=== PATIENT | male | born 1950 | race Caucasian/White ===

== ENCOUNTER 2017-04-19 22:04 | Emergency (ER) | payer OTHER ==
[2017-04-19 22:25] VITALS: BP 111/57; PULSE 80; RESP 20; TEMP 98.8
--- NOTE | 2017-04-20 00:19 | ED ---
Recheck HPI - General Source: patient, RN notes reviewed Mode of arrival: ambulatory Limitations: no limitations <Tammy Hugo - Last Filed: 04/20/17 05:15> <Bob Romero - Last Filed: 04/20/17 06:53> - General Chief Complaint: Recheck/Abnormal Lab/Rx Stated Complaint: Peg Tube fell out Time Seen by Provider: 04/19/17 23:31 - History of Present Illness Initial Comments: patient is a 66-year-old male since emergency room for evaluation. Patient states he has a feeding tube placed and it fell out today. Patient states he was using a power electronics research engineer the other day and it backfired hitting his PEG tube and it became loose and fell out today. Patient denies any significant pain. Patient just states he needs his PEG tube replaced. (Tammy Hugo) - Related Data Home Medications Medication Instructions Recorded Confirmed Aspirin [Adult Low Dose Aspirin EC] 81 mg PO DAILY 10/28/16 04/19/17 Cholecalciferol [Vitamin D3] 1,000 unit PO DAILY 10/28/16 04/19/17 Docusate [Colace] 100 mg PO DAILY 10/28/16 04/19/17 Lasix (Unknown Dose) 1 tab PO DIRECTED 10/28/16 04/19/17 Lisinopril [Prinivil] 5 mg PO DAILY 10/28/16 04/19/17 Pantoprazole Sodium [Protonix] 40 mg PO BID 10/28/16 04/19/17 Unknown Blood Pressure Medication 12.5 mg PO BID 10/28/16 04/19/17 Unknown Cholesterol Medication 80 mg PO HS 10/28/16 04/19/17 Allergies Allergy/AdvReac Type Severity Reaction Status Date / Time No Known Allergies Allergy Verified 04/19/17 22:25 Review of Systems ROS Other: All systems not noted in ROS Statement are negative. <Tammy Hugo - Last Filed: 04/20/17 05:15> ROS Other: All systems not noted in ROS Statement are negative. <Bob Romero - Last Filed: 04/20/17 06:53> ROS Statement: Those systems with pertinent positive or pertinent negative responses have been documented in the HPI. Past Medical History Past Medical History: Cancer, Heart Failure History of Any Multi-Drug Resistant Organisms: None Reported Additional Past Surgical History / Comment(s): Tracheostomy, PEG tube Past Psychological History: No Psychological Hx Reported Smoking Status: Former smoker Past Alcohol Use History: None Reported Past Drug Use History: None Reported <Tammy Hugo - Last Filed: 04/20/17 05:15> General Exam Limitations: no limitations General appearance: alert, in no apparent distress Head exam: Present: atraumatic, normocephalic, normal inspection Eye exam: Present: normal appearance ENT exam: Present: normal exam Neck exam: Present: normal inspection Respiratory exam: Present: normal lung sounds bilaterally. Absent: respiratory distress Cardiovascular Exam: Present: regular rate, normal rhythm, normal heart sounds GI/Abdominal exam: Present: other (open orrifice in LUQ where feeding tube is usually placed. No swelling or erythema around the site.) Extremities exam: Present: normal inspection Back exam: Present: normal inspection Neurological exam: Present: alert, oriented X3, CN II-XII intact, normal gait Psychiatric exam: Present: normal affect, normal mood Skin exam: Present: warm, dry, intact, normal color. Absent: rash <Tammy Hugo - Last Filed: 04/20/17 05:15> <Bob Romero - Last Filed: 04/20/17 06:53> - General Exam Comments Initial Comments: Laying in exam room, no acute distress. (Tammy Hugo) Procedures - Feeding Tube Replacement Reason for Replacement: fell out Initial Tube Inserted: greater than 2 weeks Type of Tube: gastrostomy Use of Tube: medications and feeding Insertion Site Prior to Procedure: clean Tube Used for Reinsertion: other [place] Tube Size (F): 16 Balloon Size (mls): 3 Verification of Placement: KUB Tube Secured by: tape/dressing Patient Tolerated Procedure: well, no complications Complications: unable to insert (Unable to insert first 2 times. Third attempt was successful.) <Tammy Hugo - Last Filed: 04/20/17 05:15> Medical Decision Making - Radiology Data Radiology results: report reviewed, image reviewed <Tammy Hugo - Last Filed: 04/20/17 05:15> <Bob Romero - Last Filed: 04/20/17 06:53> - Medical Decision Making patient is a 66-year-old male presents emergency room for evaluation of PEG tube replacement. Patient's PEG tube was replaced. Successful placement confirmed by KUB. Return parameters discussed. Case discussed Dr. Romero. ( Tammy Hugo) I saw this patient in conjunction with the physician customer support assistant. I performed independent history and physical exam. Agree with case management. I personally replaced the patient's feeding tube, without any complication. ( Bob Romero) Disposition Time of Disposition: 01:19 <Tammy Hugo - Last Filed: 04/20/17 05:15> <Bob Romero - Last Filed: 04/20/17 06:53> Clinical Impression: Encounter for feeding tube placement Disposition: HOME SELF-CARE Condition: Good Instructions: How to Use and Care for Your PEG Tube (ED) Additional Instructions: Please follow up with primary care provider in 1-2 days. If any new symptom arises or symptoms worsen, return to ER as soon as possible. Referrals: Eyad hCa DO [Primary Care Provider] - 1-2 days
--- NOTE | 2017-04-20 01:30 | XR ---
EXAM: XR Abdomen, 1 View CLINICAL HISTORY: Reason: pain TECHNIQUE: Frontal supine view of the abdomen/pelvis. Oral contrast was instilled in the percutaneous gastrostomy tube. COMPARISON: 10/28/16 FINDINGS: Gastrointestinal tract: Moderate fecal load. No dilation. Bones/joints: Unremarkable. Tubes, lines and devices: Percutaneous gastrostomy tube seen with the tip in the gastric antrum. Contrast is seen within the proximal duodenum. No evidence of contrast extravasation. IMPRESSION: Percutaneous gastrostomy tube seen with the tip in the gastric antrum. Contrast is seen within the proximal duodenum. No evidence of contrast extravasation.
== END 2017-04-20 01:26 | disposition home or self-care (01) ==
LOC: EC 22:04
DX: Z43.1 Encounter for attention to gastrostomy (principal); Z87.891 Personal history of nicotine dependence; Z79.82 Long term (current) use of aspirin; Z79.899 Other long term (current) drug therapy
CPT/HCPCS: 99283; 43760; 74000; Q9967

== ENCOUNTER 2018-12-27 12:15 | Inpatient (IN) | payer OTHER, MEDICARE ==
[2018-12-27] MEDS ORDERED: SODIUM CHLORIDE 0.9% 500 ML 500 ML IV STA (12:34)
[2018-12-27] MEDS ORDERED: SODIUM CHLORIDE 0.9% 1,000 ML IV STA ×2 (12:34)
--- NOTE | 2018-12-27 12:35 | ED ---
Recheck HPI - General Chief Complaint: Recheck/Abnormal Lab/Rx Stated Complaint: high blood sugar Time Seen by Provider: 12/27/18 12:33 Source: patient, family, RN notes reviewed, old records reviewed Mode of arrival: wheelchair Limitations: no limitations - History of Present Illness Initial Comments: This is a 68-year-old male sent ER for evaluation. Patient's brought in for abnormal lab values. Patient has severe hyperglycemia and outpatient lab tests. Patient sent in the ER for treatment and cause of hypoglycemia. Patient denies any increase or change in diet. Patient has no history of diabetes MD Complaint: abnormal lab -: unknown Returns Today for: Called Because of Abnormal Lab/Test Context: called for abnormal lab result Associated Symptoms: none, abdominal pain - Related Data Home Medications Medication Instructions Recorded Confirmed Aspirin [Adult Low Dose Aspirin EC] 81 mg PO DAILY 10/28/16 12/27/18 Cholecalciferol [Vitamin D3] 2,000 unit PO DAILY 10/28/16 12/27/18 Docusate [Colace] 100 mg PO DAILY 10/28/16 12/27/18 Pantoprazole Sodium [Protonix] 40 mg PO BID 10/28/16 12/27/18 Acetaminophen [Tylenol Extra 500 mg PO TID PRN 12/27/18 12/27/18 Strength] Albuterol Inhaler [Ventolin Hfa 2 puff INHALATION RT-DAILY PRN 12/27/18 12/27/18 Inhaler] Albuterol Nebulized [Ventolin 1.25 mg INHALATION RT-Q4H PRN 12/27/18 12/27/18 Nebulized] Amitriptyline HCl [Elavil] 50 mg PO TID 12/27/18 12/27/18 Ascorbic Acid [Vitamin C] 500 mg PO DAILY 12/27/18 12/27/18 Atorvastatin [Lipitor] 80 mg PO DAILY 12/27/18 12/27/18 Brimonidine Tartrate [Alphagan P 1 drops BOTH EYES DAILY 12/27/18 12/27/18 0.1% Ophth Soln] Capsaicin Cream [Trixaicin Cream] 1 applic TOPICAL QID PRN 12/27/18 12/27/18 Clopidogrel [Plavix] 75 mg PO DAILY 12/27/18 12/27/18 DULoxetine HCL [Cymbalta] 30 mg PO DAILY 12/27/18 12/27/18 Furosemide [Lasix] 20 mg PO BID 12/27/18 12/27/18 Levothyroxine Sodium 112 mcg PO DAILY 12/27/18 12/27/18 Lidocaine 5% Oint [Xylocaine 5% 1 applic TOPICAL BID 12/27/18 12/27/18 Oint] Olodaterol HCl [Striverdi Respimat] 1 spray INHALATION RT-DAILY 12/27/18 Ondansetron [Zofran] 4 mg PO Q8HR PRN 12/27/18 12/27/18 Pregabalin [Lyrica] 50 mg PO TID 12/27/18 12/27/18 Ranitidine HCl 300 mg PO BID 12/27/18 12/27/18 Sennosides [Senna] 8.6 mg PO BID PRN 12/27/18 12/27/18 Allergies Allergy/AdvReac Type Severity Reaction Status Date / Time etodolac Allergy Unknown Verified 12/27/18 13:02 omeprazole Allergy Unknown Verified 12/27/18 13:02 temazepam Allergy Unknown Verified 12/27/18 13:02 Review of Systems ROS Statement: Those systems with pertinent positive or pertinent negative responses have been documented in the HPI. ROS Other: All systems not noted in ROS Statement are negative. 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 Absent: scleral icterus, conjunctival injection, periorbital swelling ENT exam: Present: normal exam, mucous membranes moist Neck exam: Present: normal inspection. Absent: tenderness, meningismus, lymphadenopathy Respiratory exam: Present: normal lung sounds bilaterally. Absent: respiratory distress, wheezes, rales, rhonchi, stridor Cardiovascular Exam: Present: regular rate, normal rhythm, normal heart sounds. Absent: systolic murmur, diastolic murmur, rubs, gallop, clicks GI/Abdominal exam: Present: soft, normal bowel sounds. Absent: distended, tenderness, guarding, rebound, rigid Extremities exam: Present: normal inspection, full ROM, normal capillary refill. Absent: tenderness, pedal edema, joint swelling, calf tenderness Back exam: Present: normal inspection Neurological exam: Present: alert, oriented X3, CN II-XII intact Psychiatric exam: Present: normal affect, normal mood Skin exam: Present: warm, dry, intact, normal color. Absent: rash Course Vital Signs 12/27/18 12/27/18 12:27 15:11 Temperature 98.2 F Pulse Rate 99 93 Respiratory 20 17 Rate Blood Pressure 115/72 135/88 O2 Sat by Pulse 96 92 L Oximetry - Reevaluation(s) Reevaluation #1: 12/27/18 15:27 Medical records reviewed Reevaluation #2: 12/27/18 15:27 Patient's feeling better with IV hydration Medical Decision Making - Medical Decision Making 68 male the ER will be admitted with new onset diabetes dehydration and hyperglycemia. Sclerae DKA. Patient replace on insulin drip and admitted for blood sugar control and counseling - Lab Data Result diagrams: 12/27/18 13:12 12/27/18 13:12 Lab Results 12/27/18 12/27/18 12/27/18 Range/Units 13:12 13:12 13:12 WBC 9.2 (3.8-10.6) k/uL RBC 4.62 (4.30-5.90) m/uL Hgb 14.0 (13.0-17.5) gm/dL Hct 43.0 (39.0-53.0) % MCV 93.0 (80.0-100.0) fL MCH 30.2 (25.0-35.0) pg MCHC 32.5 (31.0-37.0) g/dL RDW 14.8 (11.5-15.5) % Plt Count 158 (150-450) k/uL Neutrophils % 79 % Lymphocytes % 12 % Monocytes % 4 % Eosinophils % 3 % Basophils % 1 % Neutrophils # 7.3 (1.3-7.7) k/uL Lymphocytes # 1.1 (1.0-4.8) k/uL Monocytes # 0.4 (0-1.0) k/uL Eosinophils # 0.3 (0-0.7) k/uL Basophils # 0.1 (0-0.2) k/uL Hypochromasia Slight VBG pH 7.38 (7.31-7.41) VBG pCO2 54 H (37-51) mmHg VBG HCO3 32 H (24-28) mmol/L Sodium 132 L (137-145) mmol/L Potassium 4.5 (3.5-5.1) mmol/L Chloride 84 L (98-107) mmol/L Carbon Dioxide 29 (22-30) mmol/L Anion Gap 19 mmol/L BUN 30 H (9-20) mg/dL Creatinine 1.61 H (0.66-1.25) mg/dL Est GFR (CKD-EPI)AfAm 50 (>60 ml/min/1.73 sqM) Est GFR (CKD-EPI)NonAf 43 (>60 ml/min/1.73 sqM) Glucose 637 H* (74-99) mg/dL Calcium 9.4 (8.4-10.2) mg/dL Phosphorus 3.9 (2.5-4.5) mg/dL Magnesium 2.3 (1.6-2.3) mg/dL Total Bilirubin 1.0 (0.2-1.3) mg/dL AST 33 (17-59) U/L ALT 42 (21-72) U/L Alkaline Phosphatase 129 H (38-126) U/L Troponin I (0.000-0.034) ng/mL Total Protein 7.9 (6.3-8.2) g/dL Albumin 4.6 (3.5-5.0) g/dL Urine Color Urine Appearance (Clear) Urine pH (5.0-8.0) Ur Specific [place] (1.001-1.035) Urine Protein (Negative) Urine Glucose (UA) (Negative) Urine Ketones (Negative) Urine Blood (Negative) Urine Nitrite (Negative) Urine Bilirubin (Negative) Urine Urobilinogen (<2.0) mg/dL Ur Leukocyte Esterase (Negative) Acetone, Qual Negative (Negative) 12/27/18 12/27/18 Range/Units 13:12 13:12 WBC (3.8-10.6) k/uL RBC (4.30-5.90) m/uL Hgb (13.0-17.5) gm/dL Hct (39.0-53.0) % MCV (80.0-100.0) fL MCH (25.0-35.0) pg MCHC (31.0-37.0) g/dL RDW (11.5-15.5) % Plt Count (150-450) k/uL Neutrophils % % Lymphocytes % % Monocytes % % Eosinophils % % Basophils % % Neutrophils # (1.3-7.7) k/uL Lymphocytes # (1.0-4.8) k/uL Monocytes # (0-1.0) k/uL Eosinophils # (0-0.7) k/uL Basophils # (0-0.2) k/uL Hypochromasia VBG pH (7.31-7.41) VBG pCO2 (37-51) mmHg VBG HCO3 (24-28) mmol/L Sodium (137-145) mmol/L Potassium (3.5-5.1) mmol/L Chloride (98-107) mmol/L Carbon Dioxide (22-30) mmol/L Anion Gap mmol/L BUN (9-20) mg/dL Creatinine (0.66-1.25) mg/dL Est GFR (CKD-EPI)AfAm (>60 ml/min/1.73 sqM) Est GFR (CKD-EPI)NonAf (>60 ml/min/1.73 sqM) Glucose (74-99) mg/dL Calcium (8.4-10.2) mg/dL Phosphorus (2.5-4.5) mg/dL Magnesium (1.6-2.3) mg/dL Total Bilirubin (0.2-1.3) mg/dL AST (17-59) U/L ALT (21-72) U/L Alkaline Phosphatase (38-126) U/L Troponin I 0.027 (0.000-0.034) ng/mL Total Protein (6.3-8.2) g/dL Albumin (3.5-5.0) g/dL Urine Color Light Yellow Urine Appearance Clear (Clear) Urine pH 5.0 (5.0-8.0) Ur Specific [place] 1.020 (1.001-1.035) Urine Protein Negative (Negative) Urine Glucose (UA) 4+ H (Negative) Urine Ketones 1+ H (Negative) Urine Blood Negative (Negative) Urine Nitrite Negative (Negative) Urine Bilirubin Negative (Negative) Urine Urobilinogen <2.0 (<2.0) mg/dL Ur Leukocyte Esterase Negative (Negative) Acetone, Qual (Negative) Disposition Clinical Impression: Diabetes mellitus, new onset, Hyperglycemia, Dehydration, ARF (acute renal failure) Disposition: ADMITTED IP TO THIS HOSP Condition: Fair Is patient prescribed a controlled substance at d/c from ED?: No Referrals: [facility],Clinic [Primary Care Provider] - 1-2 days
[2018-12-27 14:26] LABS: VBG PH 7.38 (7.31-7.41)
[2018-12-27 14:29] LABS: Basophils # (A) 0.1 k/uL (0-0.2); Basophils % (A) 1 %; Eosinophils # (A) 0.3 k/uL (0-0.7); Eosinophils % (A) 3 %; Hypochromasia Slight; Lymphocytes # (A) 1.1 k/uL (1.0-4.8); Lymphocytes % (A) 12 %; MCH 30.2 pg (25.0-35.0); MCHC 32.5 g/dL (31.0-37.0); Mean Platelet Volume 10.2; Monocytes # (A) 0.4 k/uL (0-1.0); Monocytes % (A) 4 %; Neutrophils # (A) 7.3 k/uL (1.3-7.7); Neutrophils % (A) 79 %; Platelet Count 158 k/uL (150-450); RBC 4.62 m/uL (4.30-5.90); RDW 14.8 % (11.5-15.5); WBC 9.2 k/uL (3.8-10.6)
[2018-12-27 14:30] LABS: Appearance,Urine Clear (Clear); Bilirubin,Urine Negative (Negative); Blood,Urine Negative (Negative); Color,Urine Light Yellow; Glucose,Urine (UA) 4+ (Negative); Ketones,Urine 1+ (Negative); Leukocyte Esterase,Urine Negative (Negative); Nitrite,Urine Negative (Negative); Protein,Urine Negative (Negative); Urobilinogen,Urine <2.0 mg/dL (<2.0)
[2018-12-27 14:57] LABS: ALT 42 U/L (21-72); AST 33 U/L (17-59); Albumin 4.6 g/dL (3.5-5.0); Alkaline Phosphatase 129 U/L (38-126); Anion Gap 19 mmol/L; Blood Urea Nitrogen 30 mg/dL (9-20); Calcium 9.4 mg/dL (8.4-10.2); Carbon Dioxide 29 mmol/L (22-30); Chloride 84 mmol/L (98-107); Magnesium 2.3 mg/dL (1.6-2.3); Phosphorus 3.9 mg/dL (2.5-4.5); Potassium 4.5 mmol/L (3.5-5.1); Sodium 132 mmol/L (137-145); Total Protein 7.9 g/dL (6.3-8.2)
[2018-12-27 15:07] LABS: Glucose 637 mg/dL (74-99)
[2018-12-27] MEDS ORDERED: Potassium Replacement Protocol 1 EACH MISC MISCELLANE PRN (15:22)
[2018-12-27] MEDS ORDERED: Magnesium Replacement Protocol 1 EACH MISC MISCELLANE PRN (15:22)
[2018-12-27] MEDS ORDERED: INSULIN REGULAR 100 UNIT in SODIUM CHLORIDE 0.9% 100 ML IV SCH (15:30)
[2018-12-27] MEDS ORDERED: D5-0.45% NACL WITH KCL 20MEQ/L 1,000 ML IV SCH (15:30)
[2018-12-27 15:53] LABS: Glucose,Whole Blood 529 mg/dL (75-99)
[2018-12-27] MEDS: SODIUM CHLORIDE 0.9% 1,000 ML IV SCH (15:56)
[2018-12-27 17:15] LABS: Glucose,Whole Blood 390 mg/dL (75-99)
[2018-12-27 17:28] LABS: Phosphorus 3.1 mg/dL (2.5-4.5)
[2018-12-27 18:26] LABS: Glucose,Whole Blood 384 mg/dL (75-99)
[2018-12-27 18:27] LABS: Glucose,Whole Blood 384 mg/dL (75-99)
[2018-12-27 18:28] LABS: Glucose,Whole Blood 384 mg/dL (75-99)
[2018-12-27 18:29] LABS: Glucose,Whole Blood 384 mg/dL (75-99)
[2018-12-27 19:35] LABS: Glucose,Whole Blood 383 mg/dL (75-99)
[2018-12-27 20:18] LABS: Glucose,Whole Blood 324 mg/dL (75-99)
[2018-12-27 21:02] LABS: Glucose,Whole Blood 381 mg/dL (75-99)
[2018-12-27] MEDS ORDERED: INSULIN REGULAR 100 UNIT/ML VIAL SQ ONE (21:11)
[2018-12-27] MEDS ORDERED: SODIUM CHLORIDE 0.9% 1,000 ML IV ONE (21:11)
[2018-12-27 21:52] LABS: Phosphorus 3.4 mg/dL (2.5-4.5); Potassium 3.6 mmol/L (3.5-5.1)
[2018-12-27 22:32] LABS: Glucose,Whole Blood 259 mg/dL (75-99)
[2018-12-28] MEDS: ACETAMINOPHEN TAB 325 MG TAB PO PRN ×2 (00:52→05:57)
[2018-12-28] MEDS: INSULIN DETEMIR (LEVEMIR) 100 UNIT/ML SYR SQ SCH ×2 (00:53→21:26)
[2018-12-28 00:56] LABS: Glucose,Whole Blood 224 mg/dL (75-99)
[2018-12-28] MEDS ORDERED: POTASSIUM CHLORIDE ER 20 MEQ TAB.ER PO SCH ×2 (01:00)
[2018-12-28] MEDS: SODIUM CHLORIDE 0.9% 1,000 ML IV SCH ×3 (03:05→21:14)
[2018-12-28] MEDS ORDERED: D5-0.45% NACL WITH KCL 20MEQ/L 1,000 ML IV SCH (04:00)
[2018-12-28 04:11] LABS: Glucose,Whole Blood 195 mg/dL (75-99)
[2018-12-28] MEDS: ALBUTEROL NEBULIZED 1.25 MG/3 ML INHALATION SCH ×4 (07:05→19:57)
[2018-12-28] MEDS ORDERED: INSULIN ASPART (NovoLOG) 100 UNIT/ML VIAL SQ SCH (07:30)
[2018-12-28 08:02] LABS: Glucose,Whole Blood 185 mg/dL (75-99)
[2018-12-28] MEDS: ENOXAPARIN 40 MG/0.4 ML SYRINGE SQ SCH (08:17)
[2018-12-28 08:25] LABS: Basophils % (A) 1 %; Eosinophils # (A) 0.6 k/uL (0-0.7); Eosinophils % (A) 7 %; HCT 37.2 % (39.0-53.0); HGB 11.8 gm/dL (13.0-17.5); Lymphocytes # (A) 1.6 k/uL (1.0-4.8); Lymphocytes % (A) 19 %; MCH 29.2 pg (25.0-35.0); MCHC 31.7 g/dL (31.0-37.0); MCV 92.2 fL (80.0-100.0); Mean Platelet Volume 8.5; Monocytes # (A) 0.4 k/uL (0-1.0); Monocytes % (A) 4 %; Neutrophils # (A) 5.9 k/uL (1.3-7.7); Neutrophils % (A) 68 %; Platelet Count 140 k/uL (150-450); RBC 4.04 m/uL (4.30-5.90); WBC 8.7 k/uL (3.8-10.6)
[2018-12-28 08:56] LABS: Albumin 3.8 g/dL (3.5-5.0); Calcium 8.4 mg/dL (8.4-10.2); Magnesium 2.2 mg/dL (1.6-2.3); Potassium 4.1 mmol/L (3.5-5.1); Total Bilirubin 0.5 mg/dL (0.2-1.3); Total Protein 6.5 g/dL (6.3-8.2)
[2018-12-28] MEDS ORDERED: SENNOSIDES 8.6 MG TAB PO PRN (10:26)
[2018-12-28] MEDS ORDERED: ONDANSETRON 4 MG TAB PO PRN (10:26)
[2018-12-28] MEDS ORDERED: CAPSAICIN 0.025% CREAM 60 GM TUBE TOPICAL PRN (10:26)
[2018-12-28] MEDS: ALBUTEROL NEBULIZED 2.5 MG/3 ML INHALATION PRN ×2 (10:46→16:08)
[2018-12-28 11:01] LABS: Glucose,Whole Blood 319 mg/dL (75-99)
[2018-12-28] MEDS: INSULIN ASPART (NovoLOG) 100 UNIT/ML VIAL SQ SCH ×5 (12:05→21:25)
[2018-12-28 13:34] VITALS: BMI 30.8
[2018-12-28 14:06] LABS: Glucose,Whole Blood 333 mg/dL (75-99)
[2018-12-28] MEDS: ACETAMINOPHEN TAB 500 MG TAB PO PRN ×2 (14:21→23:26)
--- NOTE | 2018-12-28 15:21 | P.HPIM ---
History of Present Illness 60-year-old gentleman came in none because of elevated blood glucose found to be in diabetic ketoacidosis. Patient is diabetic but he believed he is not and stopped taking his metformin. Patient did have an anion gap of around 19 with a low bicarbonate and patient was started on IV insulin which was switched to subcutaneous insulin as today after resolution of DKA. Patient appears to be type 2 diabetic with insulin deficiency. Patient will require insulin patient blood sugars went up again today after eating. Patient was started on pre-meal insulin as well will monitor his blood sugars today can you with IV fluids possibility of discharge tomorrow patient does not have any signs or symptoms of sepsis at this time denied any abdominal pain nausea vomiting. art educator evaluated the patient and patient will be provided with education for checking blood sugars and how to use insulin syringes and needles Review of Systems REVIEW OF SYSTEMS: CONSTITUTIONAL: No fever, no malaise, no fatigue. HEENT: No recent visual problems or hearing problems. Denied any sore throat. CARDIOVASCULAR: No chest pain, orthopnea, PND, no palpitations, no syncope. PULMONARY: No shortness of breath, no cough, no hemoptysis. GASTROINTESTINAL: No diarrhea, no nausea, no vomiting, no abdominal pain. NEUROLOGICAL: No headaches, no weakness, no numbness. HEMATOLOGICAL: Denies any bleeding or petechiae. GENITOURINARY: Denies any burning micturition, frequency, or urgency. MUSCULOSKELETAL/RHEUMATOLOGICAL: Denies any joint pain, swelling, or any muscle pain. ENDOCRINE: Denies any polyuria or polydipsia. The rest of the 14-point review of systems is negative. Past Medical History Past Medical History: Cancer, Heart Failure, COPD, GERD/Reflux, Hyperlipidemia, Myocardial Infarction ([place]), Osteoarthritis (OA), Pneumonia, Sleep Apnea/CPAP/ BIPAP, Thyroid Disorder Additional Past Medical History / Comment(s): hx cancer of the throat/ laryngectomy/trach, pt had flu and pne vaccine but development writer unable to verify dates at atime of this admit. Last Myocardial Infarction Date:: unk History of Any Multi-Drug Resistant Organisms: None Reported Additional Past Surgical History / Comment(s): Tracheostomy, PEG tube,and removal of PEG tube, removed laryngectomy. lt shoulder sx pin in place, rt hand 4th digit sx, neelam cataracts-lens implants Past Anesthesia/Blood Transfusion Reactions: No Reported Reaction Additional Past Anesthesia/Blood Transfusion Reaction / Comment(s): has never recieved any blood transfusions Smoking Status: Former smoker - Past Family History Mother Family Medical History: Congestive Heart Failure (CHF) Father Family Medical History: Congestive Heart Failure (CHF) Medications and Allergies Home Medications Medication Instructions Recorded Confirmed Type Aspirin [Adult Low Dose Aspirin EC] 81 mg PO DAILY 10/28/16 12/27/18 History Cholecalciferol [Vitamin D3] 2,000 unit PO DAILY 10/28/16 12/27/18 History Docusate [Colace] 100 mg PO DAILY 10/28/16 12/27/18 History Pantoprazole Sodium [Protonix] 40 mg PO BID 10/28/16 12/27/18 History Acetaminophen [Tylenol Extra 500 mg PO TID PRN 12/27/18 12/27/18 History Strength] Albuterol Inhaler [Ventolin Hfa 2 puff INHALATION RT-DAILY PRN 12/27/18 History Inhaler] Albuterol Nebulized [Ventolin 1.25 mg INHALATION RT-Q4H PRN 12/27/18 12/27/18 History Nebulized] Amitriptyline HCl [Elavil] 50 mg PO TID 12/27/18 12/27/18 History Ascorbic Acid [Vitamin C] 500 mg PO DAILY 12/27/18 12/27/18 History Atorvastatin [Lipitor] 80 mg PO DAILY 12/27/18 12/27/18 History Brimonidine Tartrate [Alphagan P 1 drops BOTH EYES DAILY 12/27/18 12/27/18 History 0.1% Ophth Soln] Capsaicin Cream [Trixaicin Cream] 1 applic TOPICAL QID PRN 12/27/18 12/27/18 History Clopidogrel [Plavix] 75 mg PO DAILY 12/27/18 12/27/18 History DULoxetine HCL [Cymbalta] 30 mg PO DAILY 12/27/18 12/27/18 History Furosemide [Lasix] 20 mg PO BID 12/27/18 12/27/18 History Levothyroxine Sodium 112 mcg PO DAILY 12/27/18 12/27/18 History Lidocaine 5% Oint [Xylocaine 5% 1 applic TOPICAL BID 12/27/18 12/27/18 History Oint] Olodaterol HCl [Striverdi Respimat] 1 spray INHALATION RT-DAILY 12/27/18 History Ondansetron [Zofran] 4 mg PO Q8HR PRN 12/27/18 12/27/18 History Pregabalin [Lyrica] 50 mg PO TID 12/27/18 12/27/18 History Ranitidine HCl 300 mg PO BID 12/27/18 12/27/18 History Sennosides [Senna] 8.6 mg PO BID PRN 12/27/18 12/27/18 History Allergies Allergy/AdvReac Type Severity Reaction Status Date / Time etodolac Allergy Unknown Verified 12/27/18 13:02 omeprazole Allergy Unknown Verified 12/27/18 13:02 temazepam Allergy Unknown Verified 12/27/18 13:02 Physical Exam Vitals: Vital Signs Temp Pulse Pulse Resp BP BP Pulse Ox 12/28/18 14:46 98.1 F 84 131/74 95 12/28/18 10:59 92 12/28/18 10:48 88 12/28/18 08:00 98 F 77 20 132/78 90 L 12/28/18 07:26 92 12/28/18 07:10 90 12/28/18 04:35 99 12/28/18 00:55 97.7 F 84 18 143/94 99 12/28/18 00:30 98.3 F 88 20 145/65 95 12/27/18 23:23 98.4 F 97 12 137/71 98 12/27/18 21:00 89 20 150/81 99 12/27/18 19:00 62 22 138/83 98 12/27/18 18:00 105 H 22 138/87 96 12/27/18 16:00 80 20 145/68 97 12/27/18 15:58 77 20 133/94 92 L Intake and Output 12/28/18 12/28/18 12/28/18 06:59 14:59 22:59 Intake Total 615 1005 Balance 615 1005 Intake: Intake, IV Titration 375 525 Amount Sodium Chloride 0.9% 1, 375 525 000 ml @ 75 mls/hr IV . [id number] [facility] Rx#:[id number] Oral 240 480 Other: # Voids 1 1 Weight 103 kg 103 kg PHYSICAL EXAMINATION: GENERAL: The patient is alert and oriented x3, not in any acute distress. Well developed, well nourished. HEENT: Pupils are round and equally reacting to light. EOMI. No scleral icterus. No conjunctival pallor. Normocephalic, atraumatic. No pharyngeal erythema. No thyromegaly. CARDIOVASCULAR: S1 and S2 present. No murmurs, rubs, or gallops. PULMONARY: Chest is clear to auscultation, no wheezing or crackles. ABDOMEN: Soft, nontender, nondistended, normoactive bowel sounds. No palpable organomegaly. MUSCULOSKELETAL: No joint swelling or deformity. EXTREMITIES: No cyanosis, clubbing, or pedal edema. NEUROLOGICAL: Gross neurological examination did not reveal any focal deficits. SKIN: No rashes. Results CBC & Chem 7: 12/28/18 08:04 12/28/18 08:04 Labs: Abnormal Lab Results - Last 24 Hours (Table) 12/27/18 12/27/18 12/27/18 Range/Units 15:44 17:00 17:03 RBC (4.30-5.90) m/uL Hgb (13.0-17.5) gm/dL Hct (39.0-53.0) % Plt Count (150-450) k/uL Sodium 134 L (137-145) mmol/L Chloride 92 L (98-107) mmol/L Carbon Dioxide 31 H (22-30) mmol/L BUN 28 H (9-20) mg/dL Creatinine 1.45 H (0.66-1.25) mg/dL Glucose 409 H (74-99) mg/dL POC Glucose (mg/dL) 529 H 390 H (75-99) mg/dL 12/27/18 12/27/18 12/27/18 Range/Units 17:59 17:59 17:59 RBC (4.30-5.90) m/uL Hgb (13.0-17.5) gm/dL Hct (39.0-53.0) % Plt Count (150-450) k/uL Sodium (137-145) mmol/L Chloride (98-107) mmol/L Carbon Dioxide (22-30) mmol/L BUN (9-20) mg/dL Creatinine (0.66-1.25) mg/dL Glucose (74-99) mg/dL POC Glucose (mg/dL) 384 H 384 H 384 H (75-99) mg/dL 12/27/18 12/27/18 12/27/18 Range/Units 17:59 17:59 17:59 RBC (4.30-5.90) m/uL Hgb (13.0-17.5) gm/dL Hct (39.0-53.0) % Plt Count (150-450) k/uL Sodium (137-145) mmol/L Chloride (98-107) mmol/L Carbon Dioxide (22-30) mmol/L BUN (9-20) mg/dL Creatinine (0.66-1.25) mg/dL Glucose (74-99) mg/dL POC Glucose (mg/dL) 384 H 384 H 384 H (75-99) mg/dL 12/27/18 12/27/18 12/27/18 Range/Units 19:00 20:06 21:02 RBC (4.30-5.90) m/uL Hgb (13.0-17.5) gm/dL Hct (39.0-53.0) % Plt Count (150-450) k/uL Sodium (137-145) mmol/L Chloride (98-107) mmol/L Carbon Dioxide (22-30) mmol/L BUN (9-20) mg/dL Creatinine (0.66-1.25) mg/dL Glucose (74-99) mg/dL POC Glucose (mg/dL) 383 H 324 H 381 H (75-99) mg/dL 12/27/18 12/27/18 12/28/18 Range/Units 21:30 22:31 00:51 RBC (4.30-5.90) m/uL Hgb (13.0-17.5) gm/dL Hct (39.0-53.0) % Plt Count (150-450) k/uL Sodium (137-145) mmol/L Chloride 94 L (98-107) mmol/L Carbon Dioxide 32 H (22-30) mmol/L BUN 28 H (9-20) mg/dL Creatinine 1.59 H (0.66-1.25) mg/dL Glucose 233 H (74-99) mg/dL POC Glucose (mg/dL) 259 H 224 H (75-99) mg/dL 12/28/18 12/28/18 12/28/18 Range/Units 04:09 08:01 08:04 RBC 4.04 L (4.30-5.90) m/uL Hgb 11.8 L (13.0-17.5) gm/dL Hct 37.2 L (39.0-53.0) % Plt Count 140 L (150-450) k/uL Sodium (137-145) mmol/L Chloride (98-107) mmol/L Carbon Dioxide (22-30) mmol/L BUN (9-20) mg/dL Creatinine (0.66-1.25) mg/dL Glucose (74-99) mg/dL POC Glucose (mg/dL) 195 H 185 H (75-99) mg/dL 12/28/18 12/28/18 12/28/18 Range/Units 08:04 11:00 14:03 RBC (4.30-5.90) m/uL Hgb (13.0-17.5) gm/dL Hct (39.0-53.0) % Plt Count (150-450) k/uL Sodium (137-145) mmol/L Chloride 97 L (98-107) mmol/L Carbon Dioxide 34 H (22-30) mmol/L BUN 23 H (9-20) mg/dL Creatinine 1.26 H (0.66-1.25) mg/dL Glucose 225 H (74-99) mg/dL POC Glucose (mg/dL) 319 H 333 H (75-99) mg/dL Microbiology - Last 24 Hours (Table) 12/27/18 13:12 Urine Culture - Preliminary Urine,Voided Thrombosis Risk Factor Assmnt - Choose All That Apply Any of the Below Risk Factors Present?: Yes Each Factor Represents 1 point: Obesity (BMI >25) Other Risk Factors: Yes Each Risk Factor Represents 2 Points: Age 61-74 years Other congenital or acquired thrombophilia - If yes, enter type in comment: No Thrombosis Risk Factor Assessment Total Risk Factor Score: 3 Thrombosis Risk Factor Assessment Level: Moderate Risk Assessment and Plan Plan: Diabetic ketoacidosis: Improved now further management as mentioned above he is a ketoacidosis is precipitated by noncompliance with medications patient will require insulin. 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
[2018-12-28] MEDS: PREGABALIN 50 MG CAP PO SCH ×2 (17:25→21:25)
[2018-12-28] MEDS: PANTOPRAZOLE 40 MG TABLET PO SCH (17:25)
[2018-12-28] MEDS: AMITRIPTYLINE HCL 50 MG TAB PO SCH ×2 (17:25→21:25)
[2018-12-28 18:09] LABS: Glucose,Whole Blood 241 mg/dL (75-99)
[2018-12-28 18:39] LABS: Hemoglobin A1C 13.3 % (4.0-6.0)
[2018-12-28] MEDS: ALBUTEROL NEBULIZED 2.5 MG/3 ML INHALATION SCH (20:08)
[2018-12-28 21:03] LABS: Glucose,Whole Blood 220 mg/dL (75-99)
[2018-12-28] MEDS: LIDOCAINE 2% GEL 30 ML TUBE TOPICAL SCH (21:26)
[2018-12-29 00:09] LABS: Glucose,Whole Blood 146 mg/dL (75-99)
[2018-12-29] MEDS: INSULIN ASPART (NovoLOG) 100 UNIT/ML VIAL SQ SCH ×7 (00:48→12:48)
[2018-12-29] MEDS: SODIUM CHLORIDE 0.9% 1,000 ML IV SCH (00:57)
[2018-12-29 03:07] LABS: Glucose,Whole Blood 70 mg/dL (75-99)
[2018-12-29 04:13] LABS: Glucose,Whole Blood 173 mg/dL (75-99)
[2018-12-29 06:02] LABS: Glucose,Whole Blood 155 mg/dL (75-99)
[2018-12-29] MEDS ORDERED: LEVOTHYROXINE 112 MCG TAB PO SCH (06:30)
[2018-12-29] MEDS: PANTOPRAZOLE 40 MG TABLET PO SCH (07:57)
[2018-12-29] MEDS ORDERED: FORMOTEROL FUMARATE 20 MCG/2 ML NEBU INHALATION SCH (08:00)
[2018-12-29] MEDS: ALBUTEROL NEBULIZED 2.5 MG/3 ML INHALATION SCH ×2 (08:23→11:51)
[2018-12-29] MEDS ORDERED: CLOPIDOGREL 75 MG TAB PO SCH (09:00)
[2018-12-29] MEDS ORDERED: ASPIRIN 81 MG PO SCH (09:00)
[2018-12-29] MEDS ORDERED: DULoxetine HCL 30 MG CAPSULE.DR PO SCH (09:00)
[2018-12-29] MEDS ORDERED: DOCUSATE 100 MG CAP PO SCH (09:00)
[2018-12-29] MEDS ORDERED: BRIMONIDINE TARTRATE 0.2% DROPS 5 ML BTL BOTH EYES SCH (09:00)
[2018-12-29] MEDS ORDERED: ATORVASTATIN 80 MG TAB PO SCH (09:00)
[2018-12-29 09:03] VITALS: BP 169/79; PULSE 88; RESP 12; TEMP 97.7
[2018-12-29] MEDS: AMITRIPTYLINE HCL 50 MG TAB PO SCH (09:56)
[2018-12-29] MEDS: PREGABALIN 50 MG CAP PO SCH (09:57)
[2018-12-29] MEDS: ENOXAPARIN 40 MG/0.4 ML SYRINGE SQ SCH (09:58)
[2018-12-29] MEDS: LIDOCAINE 2% GEL 30 ML TUBE TOPICAL SCH (09:58)
[2018-12-29 10:05] LABS: Glucose,Whole Blood 124 mg/dL (75-99)
[2018-12-29 10:17] LABS: Calcium 8.8 mg/dL (8.4-10.2); Potassium 3.4 mmol/L (3.5-5.1)
[2018-12-29] MEDS ORDERED: Potassium Replacement Protocol 1 EACH MISC MISCELLANE PRN (12:06)
[2018-12-29 12:32] LABS: Glucose,Whole Blood 135 mg/dL (75-99)
--- NOTE | 2018-12-29 17:03 | P.DS ---
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 Patient is diabetic but he believed he is not and stopped taking his metformin. Patient did have an anion gap of around 19 with a low bicarbonate and patient was started on IV insulin which was switched to subcutaneous insulin as today after resolution of DKA. Patient appears to be type 2 diabetic with insulin deficiency. Patient will require insulin patient blood sugars went up again today after eating. Patient was started on pre-meal insulin as well will monitor his blood sugars today can you with IV fluids possibility of discharge tomorrow patient does not have any signs or symptoms of sepsis at this time denied any abdominal pain nausea vomiting. parent educator evaluated the patient and patient will be provided with education for checking blood sugars and how to use insulin syringes and needles. Bicarb 31, anion gap 8 .Blood sugar stabilized/controlled on long-acting Levemir and pre-meal insulin, which patient will be discharged home on. Case management assisting with Diabetic supplies, Rxs. Received further diabetic education. Significant clinical improvement. Patient is being discharged home in a stable condition with guarded prognosis. EXAMINATION: GENERAL: The patient is alert and oriented x3, no acute distress. HEENT: Pupils are round and equal. EOMI. No scleral icterus. No conjunctival pallor. Normocephalic, atraumatic. CARDIOVASCULAR: S1 and S2 present. No murmurs, rubs, or gallops. PULMONARY: Chest is clear to auscultation, no wheezing or crackles. No rhonchi. ABDOMEN: Soft, nontender, nondistended, normoactive bowel sounds. No palpable organomegaly. EXTREMITIES: No cyanosis, clubbing, or pedal edema. NEUROLOGICAL: Gross neurological examination did not reveal any focal deficits. The impression and plan of care has been dictated as directed. : I performed a history and examination of this patient, discussed the same with the dictator. I agree with the dictator's note ,documented as a scribe. Any additional findings or plans will be noted. Time taken: 35 minutes. Patient Condition at Discharge: Stable Plan - Discharge Summary Discharge Rx Participant: No New Discharge Prescriptions: New Insulin Glargine,Hum.rec.anlog [Basaglar Kwikpen U-100] 25 unit SQ HS #1 syr Insulin Lispro [Admelog] 6 unit SQ AC-TID #1 vial Continue Pantoprazole Sodium [Protonix] 40 mg PO BID Docusate [Colace] 100 mg PO DAILY Cholecalciferol [Vitamin D3] 2,000 unit PO DAILY Aspirin [Adult Low Dose Aspirin EC] 81 mg PO DAILY Olodaterol HCl [Striverdi Respimat] 1 spray INHALATION RT-DAILY Ascorbic Acid [Vitamin C] 500 mg PO DAILY Sennosides [Senna] 8.6 mg PO BID PRN PRN Reason: Constipation Ondansetron [Zofran] 4 mg PO Q8HR PRN PRN Reason: Nausea Clopidogrel [Plavix] 75 mg PO DAILY Brimonidine Tartrate [Alphagan P 0.1% Ophth Soln] 1 drops BOTH EYES DAILY Acetaminophen [Tylenol Extra Strength] 500 mg PO TID PRN PRN Reason: Pain Ranitidine HCl 300 mg PO BID Pregabalin [Lyrica] 50 mg PO TID Lidocaine 5% Oint [Xylocaine 5% Oint] 1 applic TOPICAL BID Capsaicin Cream [Trixaicin Cream] 1 applic TOPICAL QID PRN PRN Reason: Pain Amitriptyline HCl [Elavil] 50 mg PO TID Levothyroxine Sodium 112 mcg PO DAILY DULoxetine HCL [Cymbalta] 30 mg PO DAILY Atorvastatin [Lipitor] 80 mg PO DAILY Albuterol Inhaler [Ventolin Hfa Inhaler] 2 puff INHALATION RT-DAILY PRN PRN Reason: Shortness Of Breath Furosemide [Lasix] 20 mg PO BID Albuterol Nebulized [Ventolin Nebulized] 1.25 mg INHALATION RT-Q4H PRN PRN Reason: Shortness Of Breath Discharge Medication List Aspirin [Adult Low Dose Aspirin EC] 81 mg PO DAILY 10/28/16 [History] Cholecalciferol [Vitamin D3] 2,000 unit PO DAILY 10/28/16 [History] Docusate [Colace] 100 mg PO DAILY 10/28/16 [History] Pantoprazole Sodium [Protonix] 40 mg PO BID 10/28/16 [History] Acetaminophen [Tylenol Extra Strength] 500 mg PO TID PRN 12/27/18 [History] Albuterol Inhaler [Ventolin Hfa Inhaler] 2 puff INHALATION RT-DAILY PRN [History] Albuterol Nebulized [Ventolin Nebulized] 1.25 mg INHALATION RT-Q4H PRN 12/27/18 [History] Amitriptyline HCl [Elavil] 50 mg PO TID 12/27/18 [History] Ascorbic Acid [Vitamin C] 500 mg PO DAILY 12/27/18 [History] Atorvastatin [Lipitor] 80 mg PO DAILY 12/27/18 [History] Brimonidine Tartrate [Alphagan P 0.1% Ophth Soln] 1 drops BOTH EYES DAILY [History] Capsaicin Cream [Trixaicin Cream] 1 applic TOPICAL QID PRN 12/27/18 [History] Clopidogrel [Plavix] 75 mg PO DAILY 12/27/18 [History] DULoxetine HCL [Cymbalta] 30 mg PO DAILY 12/27/18 [History] Furosemide [Lasix] 20 mg PO BID 12/27/18 [History] Levothyroxine Sodium 112 mcg PO DAILY 12/27/18 [History] Lidocaine 5% Oint [Xylocaine 5% Oint] 1 applic TOPICAL BID 12/27/18 [History] Olodaterol HCl [Striverdi Respimat] 1 spray INHALATION RT-DAILY 12/27/18 [ History] Ondansetron [Zofran] 4 mg PO Q8HR PRN 12/27/18 [History] Pregabalin [Lyrica] 50 mg PO TID 12/27/18 [History] Ranitidine HCl 300 mg PO BID 12/27/18 [History] Sennosides [Senna] 8.6 mg PO BID PRN 12/27/18 [History] Insulin Glargine,Hum.rec.anlog [Basaglar Kwikpen U-100] 25 unit SQ HS #1 syr [Rx] Insulin Lispro [Admelog] 6 unit SQ AC-TID #1 vial 12/29/18 [Rx] Follow up Appointment(s)/Referral(s): [facility],Clinic [Primary Care Provider] - 01/03/19 2:30 pm Ambulatory/Diagnostic Orders: Complete Blood Count w/diff [LAB.AMB] Time Frame: 3 Days, Location: None Selected Patient Instructions/Handouts: Diabetic Ketoacidosis (DC), How to Give an Insulin Injection (DC), Type 2 Diabetes in the Older Adult (DC) Activity/Diet/Wound Care/Special Instructions: Accu cheks achs, maintain log and take to F/U visit with PCP for further rec. DIet: COnsist. Carb Activity: limited till F/U
== END 2018-12-29 14:21 | disposition home or self-care (01) | DRG 638 ==
LOC: EC 12:15 → 3SCARD 15:24 → 4SSUR 21:58
PROVIDERS: ADMIT Hospitalist; ATTEND Hospitalist
DX: E11.10 Type 2 diabetes mellitus with ketoacidosis without coma (principal); I13.0 Hypertensive heart and chronic kidney disease with heart failure and stage 1 through stage 4 chronic kidney disease, or unspecified chronic kidney disease; N17.9 Acute kidney failure, unspecified; E11.22 Type 2 diabetes mellitus with diabetic chronic kidney disease; E11.42 Type 2 diabetes mellitus with diabetic polyneuropathy; I50.9 Heart failure, unspecified; J44.9 Chronic obstructive pulmonary disease, unspecified; N18.3 Chronic kidney disease, stage 3 (moderate); E78.5 Hyperlipidemia, unspecified; E03.9 Hypothyroidism, unspecified; E86.0 Dehydration; F32.9 Major depressive disorder, single episode, unspecified; G47.30 Sleep apnea, unspecified; I25.10 Atherosclerotic heart disease of native coronary artery without angina pectoris; I25.2 Old myocardial infarction; K21.9 Gastro-esophageal reflux disease without esophagitis; M19.90 Unspecified osteoarthritis, unspecified site; Z91.128 Patient's intentional underdosing of medication regimen for other reason; Z79.02 Long term (current) use of antithrombotics/antiplatelets; Z79.82 Long term (current) use of aspirin; Z79.890 Hormone replacement therapy; Z79.899 Other long term (current) drug therapy; Z85.21 Personal history of malignant neoplasm of larynx; Z87.891 Personal history of nicotine dependence; Z90.49 Acquired absence of other specified parts of digestive tract; Z88.8 Allergy status to other drugs, medicaments and biological substances; Z87.01 Personal history of pneumonia (recurrent); Z98.42 Cataract extraction status, left eye; Z98.41 Cataract extraction status, right eye; Z96.1 Presence of intraocular lens; Z82.49 Family history of ischemic heart disease and other diseases of the circulatory system
CPT/HCPCS: 36415; 80048; 80051; 80053; 81003; 82009; 82565; 82803; 82947; 83036; 83735; 84100; 84484; 84520; 85025; 87086; 93005; 94640; 96360; 96361; 99285

== ENCOUNTER 2019-07-08 18:54 | Inpatient (IN) | payer OTHER, MEDICARE ==
--- NOTE | 2019-07-08 19:26 | ED ---
Recheck HPI - General Chief Complaint: Recheck/Abnormal Lab/Rx Stated Complaint: FALL, SHAKING, NUMBESS IN BOTH HANDS, URINE RETENT Time Seen by Provider: 07/08/19 19:25 Source: patient, family Mode of arrival: wheelchair Limitations: no limitations - History of Present Illness Initial Comments: Samm is a 69-year-old gentleman with extensive past medical history presents the emergency department today for evaluation of tingling in his hands and feet and some shortness of breath. Patient denies any recent fevers chills or chest pain. He reports that he hasn't been making much urine feels the urge to urinate but is unable to do so. He has noticed his hands and feet seemed to be tingly and sometimes numbness is in all 4 extremities not one side or the other he has no focal neurologic weakness. - Related Data Home Medications Medication Instructions Recorded Confirmed Aspirin [Adult Low Dose Aspirin EC] 81 mg PO DAILY 10/28/16 07/08/19 Cholecalciferol [Vitamin D3 (25 2,000 unit PO DAILY 10/28/16 07/08/19 Mcg = 1000 Iu)] Pantoprazole Sodium [Protonix] 40 mg PO BID 10/28/16 07/08/19 Acetaminophen [Tylenol Extra 1,000 mg PO TID PRN 12/27/18 07/08/19 Strength] Albuterol Inhaler [Ventolin Hfa 2 puff INHALATION RT-QID PRN 12/27/18 07/08/19 Inhaler] Albuterol Nebulized [Ventolin 1.25 mg INHALATION RT-Q4H PRN 12/27/18 07/08/19 Nebulized] Ascorbic Acid [Vitamin C] 500 mg PO DAILY 12/27/18 07/08/19 Atorvastatin [Lipitor] 80 mg PO DAILY 12/27/18 07/08/19 Brimonidine Tartrate [Alphagan P 1 drops BOTH EYES DAILY 12/27/18 07/08/19 0.1% Ophth Soln] Clopidogrel [Plavix] 75 mg PO DAILY 12/27/18 07/08/19 Furosemide [Lasix] 40 mg PO DAILY 12/27/18 07/08/19 Levothyroxine Sodium 112 mcg PO DAILY 12/27/18 07/08/19 Olodaterol HCl [Striverdi Respimat] 2 puff INHALATION RT-DAILY 12/27/18 07/08/19 Pregabalin [Lyrica] 50 mg PO BID 12/27/18 07/08/19 Ranitidine HCl 300 mg PO BID 12/27/18 07/08/19 Sennosides [Senna] 8.6 mg PO BID 12/27/18 07/08/19 Ammonium Lactate Lotion 1 applic TOPICAL DAILY 07/08/19 07/08/19 [Lac-Hydrin 12% Lotion] Betamethasone Valerate [Luxiq 1 applic TOPICAL DAILY 07/08/19 07/08/19 0.01%] Fenofibrate 160 mg PO DAILY 07/08/19 07/08/19 Furosemide [Lasix] 20 mg PO HS 07/08/19 07/08/19 Hydrophilic Cream [Triad Cream] 1 applic TOPICAL BID 07/08/19 07/08/19 Insulin Aspart [NovoLOG Flexpen] 8 units SQ AC-TID 07/08/19 07/08/19 Insulin Glargine,Hum.rec.anlog 28 unit SQ HS 07/08/19 07/08/19 [Basaglar Kwikpen U-100] Ketoconazole 2% Shampoo [Nizoral] 1 applic TOPICAL DAILY 07/08/19 07/08/19 Melatonin 10 mg PO HS 07/08/19 07/08/19 Pregabalin [Lyrica] 150 mg PO HS 07/08/19 07/08/19 Terbinafine 1% Cream [LamISIL] 1 applic TOPICAL BID 07/08/19 07/08/19 rOPINIRole HCL [Requip] 0.5 - 1 mg PO HS 07/08/19 07/08/19 Allergies Allergy/AdvReac Type Severity Reaction Status Date / Time etodolac Allergy Unknown Verified 07/08/19 22:21 omeprazole Allergy Unknown Verified 07/08/19 22:21 temazepam Allergy Unknown Verified 07/08/19 22:21 Review of Systems ROS Statement: Those systems with pertinent positive or pertinent negative responses have been documented in the HPI. ROS Other: All systems not noted in ROS Statement are negative. 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 Last Myocardial Infarction Date:: unk History of Any Multi-Drug Resistant Organisms: None Reported Additional Past Surgical History / Comment(s): Tracheostomy, PEG tube,and removal of PEG tube, removed laryngectomy. lt shoulder sx pin in place, rt hand 4th digit sx, neelam cataracts-lens implants Past Anesthesia/Blood Transfusion Reactions: No Reported Reaction Additional Past Anesthesia/Blood Transfusion Reaction / Comment(s): has never recieved any blood transfusions Past Psychological History: No Psychological Hx Reported Smoking Status: Former smoker Past Alcohol Use History: None Reported Past Drug Use History: None Reported - Past Family History Mother Family Medical History: Congestive Heart Failure (CHF) Father Family Medical History: Congestive Heart Failure (CHF) General Exam - General Exam Comments Initial Comments: Physical Exam GENERAL: Chronically ill appearing Tracheostomy HENT: Normocephalic, Atraumatic. EYES: PERRL, EOMI PULMONARY: Crackles at bases Wheezes throughout CARDIOVASCULAR: RRR ABDOMEN: Obese, soft, non-tender SKIN: Skin is clear with no lesions or rashes and otherwise unremarkable. : Deferred NEUROLOGIC: Patient is alert and oriented x3. Moving all extremities spontaneously MUSCULOSKELETAL: Normal extremities with adequate strength and full range of motion. PSYCHIATRIC: Normal psychiatric evaluation. Limitations: no limitations Course Vital Signs 07/08/19 07/08/19 07/08/19 18:58 20:00 20:19 Temperature 98.2 F Pulse Rate 105 H 90 94 Respiratory 18 22 18 Rate Blood Pressure 129/63 171/79 160/74 O2 Sat by Pulse 78 L 98 98 Oximetry 07/08/19 07/08/19 07/08/19 21:00 21:30 22:03 Temperature Pulse Rate 90 93 84 Respiratory 12 14 Rate Blood Pressure 150/71 153/87 O2 Sat by Pulse 98 97 Oximetry 07/08/19 22:12 Temperature Pulse Rate 86 Respiratory Rate Blood Pressure O2 Sat by Pulse Oximetry Medical Decision Making - Medical Decision Making Patient was seen and evaluated, history is obtained from patient and daughter bedside Obese 69-year-old gentleman presenting with complaint of shortness of breath numbness and tingling in extremities Labs and imaging were ordered Labs with elevated troponin, this result was discussed with the patient who reports he has had elevations in his troponins in the past and been told that he has silent heart attacks, patient again confirms that he has not had any chest pain. Labs also with elevated BNP consistent with heart failure likely secondary to the patient having cardiac ischemia Patient also with critically high bicarb - likely secondary to poor ventilation Patient to be admitted to telemetry floor with cardiology on consult - Lab Data Result diagrams: 07/08/19 19:18 07/08/19 19:18 Lab Results 07/08/19 07/08/19 07/08/19 Range/Units 19:16 19:18 19:18 WBC 11.9 H (3.8-10.6) k/uL RBC 4.15 L (4.30-5.90) m/uL Hgb 11.3 L (13.0-17.5) gm/dL Hct 38.3 L (39.0-53.0) % MCV 92.5 (80.0-100.0) fL MCH 27.4 (25.0-35.0) pg MCHC 29.6 L (31.0-37.0) g/dL RDW 16.4 H (11.5-15.5) % Plt Count 166 (150-450) k/uL Neutrophils % 80 % Lymphocytes % 9 % Monocytes % 5 % Eosinophils % 2 % Basophils % 2 % Neutrophils # 9.6 H (1.3-7.7) k/uL Lymphocytes # 1.0 (1.0-4.8) k/uL Monocytes # 0.6 (0-1.0) k/uL Eosinophils # 0.2 (0-0.7) k/uL Basophils # 0.2 (0-0.2) k/uL Hypochromasia Marked Poikilocytosis Slight Anisocytosis Slight PT (9.0-12.0) sec INR (<1.2) APTT (22.0-30.0) sec Sodium 143 (137-145) mmol/L Potassium 4.4 (3.5-5.1) mmol/L Chloride 91 L (98-107) mmol/L Carbon Dioxide 43 H* (22-30) mmol/L Anion Gap 9 mmol/L BUN 37 H (9-20) mg/dL Creatinine 1.72 H (0.66-1.25) mg/dL Est GFR (CKD-EPI)AfAm 46 (>60 ml/min/1.73 sqM) Est GFR (CKD-EPI)NonAf 39 (>60 ml/min/1.73 sqM) Glucose 182 H (74-99) mg/dL POC Glucose (mg/dL) 163 H (75-99) mg/dL POC Glu Print Line Supervisor ID Danya Saravia Calcium 9.1 (8.4-10.2) mg/dL Magnesium 2.4 H (1.6-2.3) mg/dL Total Bilirubin 0.4 (0.2-1.3) mg/dL AST 36 (17-59) U/L ALT 26 (21-72) U/L Alkaline Phosphatase 56 (38-126) U/L Troponin I (0.000-0.034) ng/mL NT-Pro-B Natriuret Pep pg/mL Total Protein 7.5 (6.3-8.2) g/dL Albumin 4.2 (3.5-5.0) g/dL 07/08/19 07/08/19 07/08/19 Range/Units 19:18 19:18 19:18 WBC (3.8-10.6) k/uL RBC (4.30-5.90) m/uL Hgb (13.0-17.5) gm/dL Hct (39.0-53.0) % MCV (80.0-100.0) fL MCH (25.0-35.0) pg MCHC (31.0-37.0) g/dL RDW (11.5-15.5) % Plt Count (150-450) k/uL Neutrophils % % Lymphocytes % % Monocytes % % Eosinophils % % Basophils % % Neutrophils # (1.3-7.7) k/uL Lymphocytes # (1.0-4.8) k/uL Monocytes # (0-1.0) k/uL Eosinophils # (0-0.7) k/uL Basophils # (0-0.2) k/uL Hypochromasia Poikilocytosis Anisocytosis PT 10.0 (9.0-12.0) sec INR 0.9 (<1.2) APTT 25.3 (22.0-30.0) sec Sodium (137-145) mmol/L Potassium (3.5-5.1) mmol/L Chloride (98-107) mmol/L Carbon Dioxide (22-30) mmol/L Anion Gap mmol/L BUN (9-20) mg/dL Creatinine (0.66-1.25) mg/dL Est GFR (CKD-EPI)AfAm (>60 ml/min/1.73 sqM) Est GFR (CKD-EPI)NonAf (>60 ml/min/1.73 sqM) Glucose (74-99) mg/dL POC Glucose (mg/dL) (75-99) mg/dL POC Glu Print Line Supervisor ID Calcium (8.4-10.2) mg/dL Magnesium (1.6-2.3) mg/dL Total Bilirubin (0.2-1.3) mg/dL AST (17-59) U/L ALT (21-72) U/L Alkaline Phosphatase (38-126) U/L Troponin I 0.231 H* (0.000-0.034) ng/mL NT-Pro-B Natriuret Pep 8830 pg/mL Total Protein (6.3-8.2) g/dL Albumin (3.5-5.0) g/dL - EKG Data -: EKG Interpreted by Me EKG shows normal: sinus rhythm EKG Comments: EKG was obtained due to complaint of shortness breath, EKG obtained at 1914, r ate is 97 rhythm is sinus with leftward axis. Normal intervals, W[place] 156, QRS 90, QTC [address] elevations or depressions no evidence of acute ischemia or infarction. Disposition Clinical Impression: Dehydration, At risk for readmission to hospital, NSTEMI (non-ST elevated myocardial infarction), Hypercapnia Disposition: ADMITTED IP TO THIS HOSP Condition: Serious Is patient prescribed a controlled substance at d/c from ED?: No
[2019-07-08 19:30] LABS: Glucose,Whole Blood 163 mg/dL (75-99)
[2019-07-08 19:55] LABS: Anisocytosis Slight; Basophils # (A) 0.2 k/uL (0-0.2); Basophils % (A) 2 %; Eosinophils # (A) 0.2 k/uL (0-0.7); Eosinophils % (A) 2 %; HCT 38.3 % (39.0-53.0); HGB 11.3 gm/dL (13.0-17.5); Hypochromasia Marked; Lymphocytes % (A) 9 %; MCH 27.4 pg (25.0-35.0); MCHC 29.6 g/dL (31.0-37.0); MCV 92.5 fL (80.0-100.0); Mean Platelet Volume 8.8; Monocytes # (A) 0.6 k/uL (0-1.0); Monocytes % (A) 5 %; Neutrophils # (A) 9.6 k/uL (1.3-7.7); Neutrophils % (A) 80 %; Platelet Count 166 k/uL (150-450); Poikilocytosis Slight; RBC 4.15 m/uL (4.30-5.90); RDW 16.4 % (11.5-15.5); WBC 11.9 k/uL (3.8-10.6)
--- NOTE | 2019-07-08 20:02 | XR ---
EXAMINATION TYPE: XR chest 2V DATE OF EXAM: 07/08/2019 COMPARISON: 11/30/2018 HISTORY: Chest pain TECHNIQUE: Frontal and lateral views of the chest are obtained. FINDINGS: There is some coarsening of interstitial markings. There is no gross heart failure. There are chest leads. Exam is limited due to positioning. Thoracic aorta is atheromatous. IMPRESSION: Mild pulmonary fibrosis. No acute lung disease. No heart failure.
[2019-07-08 20:18] LABS: INR 0.9 (<1.2); Partial Thromboplastin Time 25.3 sec (22.0-30.0)
[2019-07-08 20:19] LABS: Albumin 4.2 g/dL (3.5-5.0); Calcium 9.1 mg/dL (8.4-10.2); Magnesium 2.4 mg/dL (1.6-2.3); Potassium 4.4 mmol/L (3.5-5.1); Total Bilirubin 0.4 mg/dL (0.2-1.3); Total Protein 7.5 g/dL (6.3-8.2)
[2019-07-08] MEDS ORDERED: HEPARIN SODIUM,PORCINE 5,000 UNIT/ML 1 ML VIAL IV ONE (20:59)
[2019-07-08] MEDS ORDERED: HEPARIN SODIUM,PORCINE 5,000 UNIT/ML 1 ML VIAL IV PRN (20:59)
[2019-07-08] MEDS ORDERED: NITROGLYCERIN SL TABS 0.4 MG TAB SUBLINGUAL PRN (21:20)
[2019-07-08] MEDS ORDERED: IPRATROPIUM-ALBUTEROL 3 ML NEB INHALATION STA (21:24)
[2019-07-08] MEDS: HEPARIN SOD,PORK IN 0.45% NACL 25,000 UNIT in 0.45% NACL 1 250ML.BAG IV SCH (21:52)
[2019-07-08 23:27] LABS: Glucose,Whole Blood 80 mg/dL (75-99)
[2019-07-08] MEDS: MELATONIN 5 MG TABLET PO SCH (23:45)
[2019-07-09] MEDS ORDERED: ALBUTEROL NEBULIZED 1.25 MG/3 ML INHALATION PRN (00:40)
[2019-07-09 02:02] LABS: Glucose,Whole Blood 112 mg/dL (75-99)
[2019-07-09] MEDS: INSULIN ASPART (NovoLOG) 100 UNIT/ML VIAL SQ SCH ×8 (02:53→21:48)
[2019-07-09] MEDS ORDERED: METOPROLOL TARTRATE 12.5 MG TAB PO ONE (03:00)
[2019-07-09 06:13] LABS: Cholesterol 96 mg/dL (<200); HDL Cholesterol 27 mg/dL (40-60); LDL Cholesterol,Calculated 45 mg/dL (0-99); Triglycerides 121 mg/dL (<150)
[2019-07-09 06:17] LABS: Anisocytosis Slight; Basophils # (A) 0.1 k/uL (0-0.2); Basophils % (A) 1 %; Eosinophils # (A) 0.2 k/uL (0-0.7); Eosinophils % (A) 2 %; HCT 36.8 % (39.0-53.0); Hypochromasia Marked; Lymphocytes # (A) 1.3 k/uL (1.0-4.8); Lymphocytes % (A) 11 %; MCH 28.2 pg (25.0-35.0); MCHC 29.9 g/dL (31.0-37.0); MCV 94.1 fL (80.0-100.0); Mean Platelet Volume 8.8; Monocytes # (A) 0.7 k/uL (0-1.0); Monocytes % (A) 7 %; Neutrophils # (A) 8.7 k/uL (1.3-7.7); Neutrophils % (A) 78 %; Platelet Count 162 k/uL (150-450); Poikilocytosis Slight; RBC 3.91 m/uL (4.30-5.90); RDW 17.1 % (11.5-15.5); WBC 11.2 k/uL (3.8-10.6)
[2019-07-09] MEDS: FORMOTEROL FUMARATE 20 MCG/2 ML NEBU INHALATION SCH ×2 (07:07→19:58)
[2019-07-09] MEDS: ALBUTEROL NEBULIZED 2.5 MG/3 ML INHALATION SCH ×4 (07:14→19:58)
[2019-07-09] MEDS: LEVOTHYROXINE 112 MCG TAB PO SCH (07:18)
[2019-07-09] MEDS ORDERED: ALBUTEROL NEBULIZED 2.5 MG/3 ML INHALATION PRN ×2 (08:00→20:10)
[2019-07-09] MEDS ORDERED: FUROSEMIDE 20 MG TAB PO SCH ×2 (09:00→21:00)
[2019-07-09] MEDS ORDERED: PANTOPRAZOLE 40 MG TABLET PO SCH (09:00)
--- NOTE | 2019-07-09 09:38 | P.CRDCN ---
History of Present Illness Consult date: 07/09/19 Requesting physician: Nazia Raza Reason for Consult (text): AbNormal troponin Chief complaint: Bilateral hand and arm and leg tingling History of present illness: This is a 69-year-old gentleman with history of throat cancer with tracheostomy in place, COPD, GERD, diabetes, hyperlipidemia, sleep apnea, hypothyroidism, prior history of smoking, patient quit smoking in 2016. He pre sents to the emergency room on this occasion with symptoms of tingling in his bilateral hands and feet, he also states that he experienced a fall prior to coming to the hospital. States he's been having some difficulty with urinating. He denies having any chest discomfort, and states that his breathing has been the same as his usual he denies any worsening in shortness of breath. His chest x-ray on presentation here showed mild pulmonary fibrosis with no heart failure. Oxygen saturation on presentation here 78% on room air EKG shows normal sinus rhythm with no acute changes noted. Blood pressure 130/60 with a heart rate in the 70s, 95% on trach collar, 60% FiO2, 98.2 temperature. White blood cell count 11.9 on admission 11.2 this morning, hemoglobin 11, platelet count 162, sodium 143, potassium 4.4, BUN 37 and creatinine 1.7. Troponins 0.23, 0.32, 0.29, BNP level 8830. Cardiology consultation was requested because of abnormality in troponin. At the time of my examination this morning, he sitting up at bedside, he has no complaints other than feeling hungry. 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 Last Myocardial Infarction Date:: unk History of Any Multi-Drug Resistant Organisms: None Reported Additional Past Surgical History / Comment(s): Tracheostomy, PEG tube,and removal of PEG tube, removed laryngectomy. lt shoulder sx pin in place, rt hand 4th digit sx, neelam cataracts-lens implants Past Anesthesia/Blood Transfusion Reactions: No Reported Reaction Additional Past Anesthesia/Blood Transfusion Reaction / Comment(s): has never recieved any blood transfusions Past Psychological History: No Psychological Hx Reported Smoking Status: Former smoker Past Alcohol Use History: None Reported Past Drug Use History: None Reported - Past Family History Mother Family Medical History: Congestive Heart Failure (CHF) Father Family Medical History: Congestive Heart Failure (CHF) Medications and Allergies Home Medications Medication Instructions Recorded Confirmed Type Aspirin [Adult Low Dose Aspirin EC] 81 mg PO DAILY 10/28/16 07/08/19 History Cholecalciferol [Vitamin D3 (25 2,000 unit PO DAILY 10/28/16 07/08/19 History Mcg = 1000 Iu)] Pantoprazole Sodium [Protonix] 40 mg PO BID 10/28/16 07/08/19 History Acetaminophen [Tylenol Extra 1,000 mg PO TID PRN 12/27/18 07/08/19 History Strength] Albuterol Inhaler [Ventolin Hfa 2 puff INHALATION RT-QID PRN 12/27/18 07/08/19 History Inhaler] Albuterol Nebulized [Ventolin 1.25 mg INHALATION RT-Q4H PRN 12/27/18 07/08/19 History Nebulized] Ascorbic Acid [Vitamin C] 500 mg PO DAILY 12/27/18 07/08/19 History Atorvastatin [Lipitor] 80 mg PO DAILY 12/27/18 07/08/19 History Brimonidine Tartrate [Alphagan P 1 drops BOTH EYES DAILY 12/27/18 07/08/19 History 0.1% Ophth Soln] Clopidogrel [Plavix] 75 mg PO DAILY 12/27/18 07/08/19 History Furosemide [Lasix] 40 mg PO DAILY 12/27/18 07/08/19 History Levothyroxine Sodium 112 mcg PO DAILY 12/27/18 07/08/19 History Olodaterol HCl [Striverdi Respimat] 2 puff INHALATION RT-DAILY 12/27/18 07/08/19 History Pregabalin [Lyrica] 50 mg PO BID 12/27/18 07/08/19 History Ranitidine HCl 300 mg PO BID 12/27/18 07/08/19 History Sennosides [Senna] 8.6 mg PO BID 12/27/18 07/08/19 History Ammonium Lactate Lotion 1 applic TOPICAL DAILY 07/08/19 07/08/19 History [Lac-Hydrin 12% Lotion] Betamethasone Valerate [Luxiq 1 applic TOPICAL DAILY 07/08/19 07/08/19 History 0.01%] Fenofibrate 160 mg PO DAILY 07/08/19 07/08/19 History Furosemide [Lasix] 20 mg PO HS 07/08/19 07/08/19 History Hydrophilic Cream [Triad Cream] 1 applic TOPICAL BID 07/08/19 07/08/19 History Insulin Aspart [NovoLOG Flexpen] 8 units SQ AC-TID 07/08/19 07/08/19 History Insulin Glargine,Hum.rec.anlog 28 unit SQ HS 07/08/19 07/08/19 History [Basaglar Kwikpen U-100] Ketoconazole 2% Shampoo [Nizoral] 1 applic TOPICAL DAILY 07/08/19 07/08/19 History Melatonin 10 mg PO HS 07/08/19 07/08/19 History Pregabalin [Lyrica] 150 mg PO HS 07/08/19 07/08/19 History Terbinafine 1% Cream [LamISIL] 1 applic TOPICAL BID 07/08/19 07/08/19 History rOPINIRole HCL [Requip] 0.5 - 1 mg PO HS 07/08/19 07/08/19 History Allergies Allergy/AdvReac Type Severity Reaction Status Date / Time etodolac Allergy Unknown Verified 07/08/19 22:21 omeprazole Allergy Unknown Verified 07/08/19 22:21 temazepam Allergy Unknown Verified 07/08/19 22:21 Physical Exam Vitals: Vital Signs Temp Pulse Pulse Resp BP BP Pulse Ox 07/09/19 07:37 78 07/09/19 07:25 82 07/09/19 07:24 82 07/09/19 07:15 76 96 07/09/19 04:00 98.2 F 75 18 130/60 95 07/09/19 00:00 95 18 07/08/19 22:49 98.5 F 92 18 155/76 07/08/19 22:12 86 07/08/19 22:03 84 07/08/19 21:30 93 14 153/87 97 07/08/19 21:00 90 12 150/71 98 07/08/19 20:19 94 18 160/74 98 07/08/19 20:00 90 22 171/79 98 07/08/19 18:58 98.2 F 105 H 18 129/63 78 L Intake and Output 07/08/19 07/09/19 07/09/19 22:59 06:59 14:59 Intake Total 87.316 Output Total 100 Balance -12.684 Intake: Intake, IV Titration 87.316 Amount Heparin Sod,Pork in 0.45% 87.316 NaCl 25,000 unit In 0.45 % NaCl 1 250ml.bag @ 9.3 UNITS/KG/HR 9.998 mls/hr IV .Q24H [facility] Rx#: [id number] Output: Urine 100 Other: Weight 107.501 kg 111.4 kg PHYSICAL EXAMINATION: GENERAL: 69-year-old gentleman in no acute distress at the time of my examination HEENT: Head is atraumatic, normocephalic. Pupils equal, round. Sclera an icteric. Conjunctiva are clear. Mucous membranes of the mouth are moist. Neck is supple. Tracheostomy in place There is no elevated jugular venous pressure. No carotid bruit is heard. HEART EXAMINATION: Heart S1, S2 normal. No murmur or gallop heard. CHEST EXAMINATION: Lungs reveal coarse rales throughout ABDOMEN: Soft, nontender. Bowel sounds are heard. No organomegaly noted. EXTREMITIES: 2+ peripheral pulses with no evidence of peripheral edema and no calf tenderness noted. NEUROLOGIC patient is awake, alert and oriented 3. . Results 07/09/19 05:35 07/08/19 19:18 Cardiac Enzymes 07/08/19 07/08/19 07/09/19 Range/Units 19:18 19:18 00:46 AST 36 (17-59) U/L Troponin I 0.231 H* 0.332 H* (0.000-0.034) ng/mL 07/09/19 Range/Units 05:35 AST (17-59) U/L Troponin I 0.294 H* (0.000-0.034) ng/mL Coagulation 07/08/19 07/09/19 Range/Units 19:18 05:35 PT 10.0 (9.0-12.0) sec APTT 25.3 38.0 H (22.0-30.0) sec Lipids 07/09/19 Range/Units 05:35 Triglycerides 121 (<150) mg/dL Cholesterol 96 (<200) mg/dL HDL Cholesterol 27 L (40-60) mg/dL CBC 07/08/19 07/09/19 Range/Units 19:18 05:35 WBC 11.9 H 11.2 H (3.8-10.6) k/uL RBC 4.15 L 3.91 L (4.30-5.90) m/uL Hgb 11.3 L 11.0 L (13.0-17.5) gm/dL Hct 38.3 L 36.8 L (39.0-53.0) % Plt Count 166 162 (150-450) k/uL Comprehensive Metabolic Panel 07/08/19 Range/Units 19:18 Sodium 143 (137-145) mmol/L Potassium 4.4 (3.5-5.1) mmol/L Chloride 91 L (98-107) mmol/L Carbon Dioxide 43 H* (22-30) mmol/L BUN 37 H (9-20) mg/dL Creatinine 1.72 H (0.66-1.25) mg/dL Glucose 182 H (74-99) mg/dL Calcium 9.1 (8.4-10.2) mg/dL AST 36 (17-59) U/L ALT 26 (21-72) U/L Alkaline Phosphatase 56 (38-126) U/L Total Protein 7.5 (6.3-8.2) g/dL Albumin 4.2 (3.5-5.0) g/dL Current Medications Generic Name Dose Route Start Last Admin Trade Name Freq PRN Reason Stop Dose Admin Acetaminophen 1,000 mg 07/09/19 00:40 Tylenol Tab PO TID PRN Pain Albuterol Sulfate 2.5 mg 07/09/19 08:00 07/09/19 07:14 Ventolin Nebulized INHALATION 2.5 mg RT-Q4H ARNULFO Administration Ascorbic Acid 500 mg 07/09/19 09:00 Vitamin C PO DAILY [facility] Aspirin 81 mg 07/09/19 09:00 Aspirin PO DAILY [facility] Atorvastatin Calcium 80 mg 07/09/19 09:00 Lipitor PO DAILY [facility] Betamethasone Dipropionate 1 applic 07/09/19 09:00 Diprolene Af TOPICAL DAILY [facility] Brimonidine Tartrate 1 drops 07/09/19 09:00 Alphagan P 0.2% Ophth Soln BOTH EYES DAILY [facility] Cholecalciferol 2,000 unit 07/09/19 09:00 Vitamin D3 (25 Mcg = 1000 Iu) PO DAILY [facility] Clopidogrel Bisulfate 75 mg 07/09/19 09:00 Plavix PO DAILY [facility] Famotidine 20 mg 07/09/19 09:00 Pepcid PO BID [facility] Fenofibrate 160 mg 07/09/19 09:00 Lofibra PO DAILY [facility] Formoterol Fumarate 20 mcg 07/09/19 08:00 07/09/19 07:07 Perforomist INHALATION 20 mcg RT-BID [facility] Administration Furosemide 20 mg 07/09/19 21:00 Lasix PO HS [facility] Furosemide 40 mg 07/09/19 09:00 Lasix PO DAILY [facility] Heparin Sodium (Porcine) 0 unit 07/08/19 20:59 07/09/19 06:36 Heparin IV 4,000 unit PER PROTOCOL PRN Administration Low PTT Protocol Heparin Sodium/Sodium Chloride 250 mls @ 9.998 mls/hr 07/08/19 21:00 07/09/19 06:36 25,000 unit/ Sodium Chloride IV 13.998 units/kg/hr .Q24H [facility] 15.048 mls/hr Titration Protocol 9.3 UNITS/KG/HR Insulin Aspart 0 unit 07/08/19 21:00 07/09/19 02:53 Novolog SQ Not Given ACHS [facility] Protocol Insulin Aspart 8 unit 07/09/19 07:30 Novolog SQ AC-TID [facility] Insulin Detemir 28 unit 07/09/19 21:00 Levemir SQ HS [facility] Ketoconazole 1 applic 07/09/19 09:00 Nizoral TOPICAL DAILY [facility] Lactic Acid 1 applic 07/09/19 09:00 Lac-Hydrin 12% TOPICAL DAILY [facility] Levothyroxine Sodium 112 mcg 07/09/19 06:30 07/09/19 07:18 Synthroid PO 112 mcg DAILY@0630 [facility] Administration Melatonin 10 mg 07/08/19 23:00 07/08/19 23:45 Melatonin PO 10 mg HS [facility] Administration Metoprolol Tartrate 12.5 mg 07/09/19 09:00 Lopressor PO BID [facility] Multi-Ingred Cream/Lotion/Oil/Oint 1 applic 07/09/19 09:00 Triad Cream TOPICAL BID [facility] Nitroglycerin 0.4 mg 07/08/19 21:20 Nitrostat SUBLINGUAL Q5M PRN Chest Pain Pregabalin 50 mg 07/09/19 09:00 Lyrica PO BID@0900,1600 ARNULFO Pregabalin 150 mg 07/09/19 21:00 Lyrica PO HS AR[facility] Ropinirole HCl 0.5 mg 07/09/19 21:00 Requip PO HS AR[facility] Senna 8.6 mg 07/09/19 09:00 Senokot PO BID ARN[facility]FO Terbinafine HCl 1 applic 07/09/19 09:00 Lamisil Cream TOPICAL BID ARNULFO Intake and Output 07/08/19 07/09/19 07/09/19 22:59 06:59 14:59 Intake Total 87.316 Output Total 100 Balance -12.684 Intake: Intake, IV Titration 87.316 Amount Heparin Sod,Pork in 0.45% 87.316 NaCl 25,000 unit In 0.45 % NaCl 1 250ml.bag @ 9.3 UNITS/KG/HR 9.998 mls/hr IV .Q24H [facility] Rx#: [id number] Output: Urine 100 Other: Weight 107.501 kg 111.4 kg 07/09/19 05:35 07/08/19 19:18 EKG Interpretations (text) EKG shows normal sinus rhythm with no acute changes. Assessment and Plan Plan: Assessment and plan #1 symptoms of bilateral hand and feet tingling #2 abnormality in troponin, with no significant rise and fall pattern, likely secondary to abnormal renal function, or hypoxia #3 history of throat cancer with tracheostomy #4 acute on chronic renal insufficiency #5 hyperlipidemia #6 sleep apnea #7 hypothyroidism #8 elevated BNP , possible mild CHF #9 Copd #10 Diabetes #11 Questionable rpior silent SC Plan We will obtain an echocardiogram with Doppler study. We will discontinue the by mouth Lasix and start the patient on IV Lasix. Continue to monitor intake and output along with daily weights daily lytes BUN and creatinine. DNP note has been reviewed, I agree with a documented findings and plan of care. Patient was seen and examined.
[2019-07-09] MEDS: METOPROLOL TARTRATE 12.5 MG TAB PO SCH ×2 (10:14→21:07)
[2019-07-09] MEDS: CLOPIDOGREL 75 MG TAB PO SCH (10:15)
[2019-07-09] MEDS: ASCORBIC ACID 500 MG TAB PO SCH (10:15)
[2019-07-09] MEDS: FAMOTIDINE 20 MG TAB PO SCH ×2 (10:15→21:07)
[2019-07-09] MEDS: ATORVASTATIN 80 MG TAB PO SCH (10:15)
[2019-07-09] MEDS: SENNOSIDES 8.6 MG TAB PO SCH ×2 (10:15→21:07)
[2019-07-09] MEDS: PREGABALIN 50 MG CAP PO SCH ×2 (10:15→18:06)
[2019-07-09] MEDS: CHOLECALCIFEROL 1,000 UNIT TAB PO SCH (10:15)
[2019-07-09] MEDS: FENOFIBRATE 160 MG TAB PO SCH (10:15)
[2019-07-09] MEDS: ASPIRIN 81 MG PO SCH (10:15)
[2019-07-09] MEDS: TERBINAFINE 1% CREAM 15 GM TUBE TOPICAL SCH ×2 (10:21→21:08)
[2019-07-09] MEDS: BETAMETHASONE DIPROPIONATE 0.05% CREAM 15 GM TUBE TOPICAL SCH (10:22)
[2019-07-09] MEDS: BRIMONIDINE TARTRATE 0.2% DROPS 5 ML BTL BOTH EYES SCH (10:23)
[2019-07-09] MEDS: AMMONIUM LACTATE 12% LOTION 225 GM BTL TOPICAL SCH (10:24)
[2019-07-09] MEDS: HYDROPHILIC CREAM 180 GM TUBE TOPICAL SCH ×2 (10:24→21:07)
[2019-07-09] MEDS: KETOCONAZOLE 2% SHAMPOO 1 APPLIC/ML TOPICAL SCH (10:25)
[2019-07-09] MEDS: FUROSEMIDE 10 MG/ML 4 ML VIAL IV SCH ×2 (10:27→21:08)
[2019-07-09 13:47] LABS: Glucose,Whole Blood 108 mg/dL (75-99)
--- NOTE | 2019-07-09 16:34 | P.HPIM ---
History of Present Illness Chief Complaint: Fall, numbness both hands, abnormal labs 69-year-old gentleman with history of throat cancer with tracheostomy in place, COPD, GERD, diabetes, hyperlipidemia, sleep apnea, hypothyroidism, prior history of smoking, patient quit smoking in 2016. He presents to the emergency room on this occasion with symptoms of tingling in his bilateral hands and feet, he also states that he experienced a fall prior to coming to the hospital. States he's been having some difficulty with urinating. He denies having any chest discomfort, and states that his breathing has been the same as his usual he denies any worsening in shortness of breath. His chest x-ray on presentation here showed mild pulmonary fibrosis with no heart failure. Oxygen saturation on presentation here 78% on room air EKG shows normal sinus rhythm with no acute changes noted. Blood pressure 130/60 with a heart rate in the 70 s, 95% on trach collar, 60% FiO2, 98.2 temperature. White blood cell count 11.9 on admission 11.2 this morning, hemoglobin 11, platelet count 162, sodium 143, potassium 4.4, BUN 37 and creatinine 1.7. Troponins 0.23, 0.32, 0.29, BNP level 8830. Review of Systems Constitutional: Denies chills, Denies fever Eyes: denies blurred vision, denies loss of vision Ears, nose, mouth and throat: Denies epistaxis Cardiovascular: Reports shortness of breath, Denies chest pain, Denies syncope Respiratory: Denies cough with sputum Gastrointestinal: Denies abdominal pain, Denies nausea, Denies vomiting Genitourinary: Denies dysuria, Denies hematuria Musculoskeletal: Reports frequent falls, Reports gait dysfunction Integumentary: Denies color changes Neurological: Reports gait dysfunction, Reports tingling, Denies confusion Psychiatric: Denies anxiety, Denies confusion Endocrine: Denies cold intolerance, Denies heat intolerance Hematologic/Lymphatic: Denies easy bruising, Denies lymphadenopathy Allergic/Immunologic: Denies anaphylaxis Past Medical History Past Medical History: Cancer, Heart Failure, COPD, GERD/Reflux, Hyperlipidemia, Myocardial Infarction (AR), Osteoarthritis (OA), Pneumonia, Sleep Apnea/CPAP/BIPAP, Thyroid Disorder Additional Past Medical History / Comment(s): hx cancer of the throat/laryngectomy/trach, pt had flu and pne vaccine but chief underwriter unable to verify dates at atime of this admit. Last Myocardial Infarction Date:: unk History of Any Multi-Drug Resistant Organisms: None Reported Additional Past Surgical History / Comment(s): Tracheostomy, PEG tube,and removal of PEG tube, removed laryngectomy. lt shoulder sx pin in place, rt hand 4th digit sx, neelam cataracts-lens implants Past Anesthesia/Blood Transfusion Reactions: No Reported Reaction Additional Past Anesthesia/Blood Transfusion Reaction / Comment(s): has never recieved any blood transfusions Past Psychological History: No Psychological Hx Reported Smoking Status: Former smoker Past Alcohol Use History: None Reported Past Drug Use History: None Reported - Past Family History Mother Family Medical History: Congestive Heart Failure (CHF) Father Family Medical History: Congestive Heart Failure (CHF) Medications and Allergies Home Medications Medication Instructions Recorded Confirmed Type Aspirin [Adult Low Dose Aspirin EC] 81 mg PO DAILY 10/28/16 07/08/19 History Cholecalciferol [Vitamin D3 (25 2,000 unit PO DAILY 10/28/16 07/08/19 History Mcg = 1000 Iu)] Pantoprazole Sodium [Protonix] 40 mg PO BID 10/28/16 07/08/19 History Acetaminophen [Tylenol Extra 1,000 mg PO TID PRN 12/27/18 07/08/19 History Strength] Albuterol Inhaler [Ventolin Hfa 2 puff INHALATION RT-QID PRN 12/27/18 07/08/19 History Inhaler] Albuterol Nebulized [Ventolin 1.25 mg INHALATION RT-Q4H PRN 12/27/18 07/08/19 History Nebulized] Ascorbic Acid [Vitamin C] 500 mg PO DAILY 12/27/18 07/08/19 History Atorvastatin [Lipitor] 80 mg PO DAILY 12/27/18 07/08/19 History Brimonidine Tartrate [Alphagan P 1 drops BOTH EYES DAILY 12/27/18 07/08/19 History 0.1% Ophth Soln] Clopidogrel [Plavix] 75 mg PO DAILY 12/27/18 07/08/19 History Furosemide [Lasix] 40 mg PO DAILY 12/27/18 07/08/19 History Levothyroxine Sodium 112 mcg PO DAILY 12/27/18 07/08/19 History Olodaterol HCl [Striverdi Respimat] 2 puff INHALATION RT-DAILY 12/27/18 07/08/19 History Pregabalin [Lyrica] 50 mg PO BID 12/27/18 07/08/19 History Ranitidine HCl 300 mg PO BID 12/27/18 07/08/19 History Sennosides [Senna] 8.6 mg PO BID 12/27/18 07/08/19 History Ammonium Lactate Lotion 1 applic TOPICAL DAILY 07/08/19 07/08/19 History [Lac-Hydrin 12% Lotion] Betamethasone Valerate [Luxiq 1 applic TOPICAL DAILY 07/08/19 07/08/19 History 0.01%] Fenofibrate 160 mg PO DAILY 07/08/19 07/08/19 History Furosemide [Lasix] 20 mg PO HS 07/08/19 07/08/19 History Hydrophilic Cream [Triad Cream] 1 applic TOPICAL BID 07/08/19 07/08/19 History Insulin Aspart [NovoLOG Flexpen] 8 units SQ AC-TID 07/08/19 07/08/19 History Insulin Glargine,Hum.rec.anlog 28 unit SQ HS 07/08/19 07/08/19 History [Basaglar Kwikpen U-100] Ketoconazole 2% Shampoo [Nizoral] 1 applic TOPICAL DAILY 07/08/19 07/08/19 History Melatonin 10 mg PO HS 07/08/19 07/08/19 History Pregabalin [Lyrica] 150 mg PO HS 07/08/19 07/08/19 History Terbinafine 1% Cream [LamISIL] 1 applic TOPICAL BID 07/08/19 07/08/19 History rOPINIRole HCL [Requip] 0.5 - 1 mg PO HS 07/08/19 07/08/19 History Allergies Allergy/AdvReac Type Severity Reaction Status Date / Time etodolac Allergy Unknown Verified 07/08/19 22:21 omeprazole Allergy Unknown Verified 07/08/19 22:21 temazepam Allergy Unknown Verified 07/08/19 22:21 Physical Exam Vitals: Vital Signs Temp Pulse Pulse Resp BP BP Pulse Ox 07/09/19 11:20 76 07/09/19 11:06 84 07/09/19 08:00 97.6 F 77 18 129/67 99 07/09/19 07:37 78 07/09/19 07:25 82 07/09/19 07:24 82 07/09/19 07:15 76 96 07/09/19 04:00 98.2 F 75 18 130/60 95 07/09/19 00:00 95 18 07/08/19 22:49 98.5 F 92 18 155/76 07/08/19 22:12 86 07/08/19 22:03 84 07/08/19 21:30 93 14 153/87 97 07/08/19 21:00 90 12 150/71 98 07/08/19 20:19 94 18 160/74 98 07/08/19 20:00 90 22 171/79 98 07/08/19 18:58 98.2 F 105 H 18 129/63 78 L Intake and Output 07/08/19 07/09/19 07/09/19 22:59 06:59 14:59 Intake Total 87.316 Output Total 100 Balance -12.684 Intake: Intake, IV Titration 87.316 Amount Heparin Sod,Pork in 0.45% 87.316 NaCl 25,000 unit In 0.45 % NaCl 1 250ml.bag @ 9.3 UNITS/KG/HR 9.998 mls/hr IV .Q24H [facility] Rx#: [id number] Output: Urine 100 Other: Weight 107.501 kg 111.4 kg GENERAL: 69-year-old gentleman in no acute distress at the time of my examination HEENT: Head is atraumatic, normocephalic. Pupils equal, round. Sclera anicte belgica. Conjunctiva are clear. Mucous membranes of the mouth are moist. Neck is supple. Tracheostomy in place There is no elevated jugular venous pressure. No carotid bruit is heard. HEART EXAMINATION: Heart S1, S2 normal. No murmur or gallop heard. CHEST EXAMINATION: Lungs reveal coarse rales throughout ABDOMEN: Soft, nontender. Bowel sounds are heard. No organomegaly noted. EXTREMITIES: 2+ peripheral pulses with no evidence of peripheral edema and no calf tenderness noted. NEUROLOGIC patient is awake, alert and oriented 3. Results CBC & Chem 7: 07/09/19 05:35 07/08/19 19:18 Labs: Abnormal Lab Results - Last 24 Hours (Table) 07/08/19 07/08/19 07/08/19 Range/Units 19:16 19:18 19:18 WBC 11.9 H (3.8-10.6) k/uL RBC 4.15 L (4.30-5.90) m/uL Hgb 11.3 L (13.0-17.5) gm/dL Hct 38.3 L (39.0-53.0) % MCHC 29.6 L (31.0-37.0) g/dL RDW 16.4 H (11.5-15.5) % Neutrophils # 9.6 H (1.3-7.7) k/uL APTT (22.0-30.0) sec Chloride 91 L (98-107) mmol/L Carbon Dioxide 43 H* (22-30) mmol/L BUN 37 H (9-20) mg/dL Creatinine 1.72 H (0.66-1.25) mg/dL Glucose 182 H (74-99) mg/dL POC Glucose (mg/dL) 163 H (75-99) mg/dL Magnesium 2.4 H (1.6-2.3) mg/dL Troponin I (0.000-0.034) ng/mL HDL Cholesterol (40-60) mg/dL 07/08/19 07/09/19 07/09/19 Range/Units 19:18 00:46 02:01 WBC (3.8-10.6) k/uL RBC (4.30-5.90) m/uL Hgb (13.0-17.5) gm/dL Hct (39.0-53.0) % MCHC (31.0-37.0) g/dL RDW (11.5-15.5) % Neutrophils # (1.3-7.7) k/uL APTT (22.0-30.0) sec Chloride (98-107) mmol/L Carbon Dioxide (22-30) mmol/L BUN (9-20) mg/dL Creatinine (0.66-1.25) mg/dL Glucose (74-99) mg/dL POC Glucose (mg/dL) 112 H (75-99) mg/dL Magnesium (1.6-2.3) mg/dL Troponin I 0.231 H* 0.332 H* (0.000-0.034) ng/mL HDL Cholesterol (40-60) mg/dL 07/09/19 07/09/19 07/09/19 Range/Units 05:35 05:35 05:35 WBC 11.2 H (3.8-10.6) k/uL RBC 3.91 L (4.30-5.90) m/uL Hgb 11.0 L (13.0-17.5) gm/dL Hct 36.8 L (39.0-53.0) % MCHC 29.9 L (31.0-37.0) g/dL RDW 17.1 H (11.5-15.5) % Neutrophils # 8.7 H (1.3-7.7) k/uL APTT (22.0-30.0) sec Chloride (98-107) mmol/L Carbon Dioxide (22-30) mmol/L BUN (9-20) mg/dL Creatinine (0.66-1.25) mg/dL Glucose (74-99) mg/dL POC Glucose (mg/dL) (75-99) mg/dL Magnesium (1.6-2.3) mg/dL Troponin I 0.294 H* (0.000-0.034) ng/mL HDL Cholesterol 27 L (40-60) mg/dL 07/09/19 Range/Units 05:35 WBC (3.8-10.6) k/uL RBC (4.30-5.90) m/uL Hgb (13.0-17.5) gm/dL Hct (39.0-53.0) % MCHC (31.0-37.0) g/dL RDW (11.5-15.5) % Neutrophils # (1.3-7.7) k/uL APTT 38.0 H (22.0-30.0) sec Chloride (98-107) mmol/L Carbon Dioxide (22-30) mmol/L BUN (9-20) mg/dL Creatinine (0.66-1.25) mg/dL Glucose (74-99) mg/dL POC Glucose (mg/dL) (75-99) mg/dL Magnesium (1.6-2.3) mg/dL Troponin I (0.000-0.034) ng/mL HDL Cholesterol (40-60) mg/dL Thrombosis Risk Factor Assmnt - Choose All That Apply Each Factor Represents 1 point: Obesity (BMI >25), Swollen legs (current) Each Risk Factor Represents 2 Points: Age 61-74 years Thrombosis Risk Factor Assessment Total Risk Factor Score: 4 Thrombosis Risk Factor Assessment Level: Moderate Risk Assessment and Plan Assessment: 1. Acute exacerbation CHF - Patient is started on Lasix 40 mg IV every 12 hours; cardiology is following and echo with Doppler to his recommended and ordered; we will monitor daily weights, strict ANAYA's, renal function and electrolytes; maintain low salt and fluid restricted diet - Further recommendations after echocardiogram is available 2. Elevated troponin; possibly secondary to abnormal renal function/hypoxemia - We will monitor EKG and trend troponin; echocardiogram is ordered; cardiology is following - Patient does have history of previous AR; continue with aspirin, beta blockers, statin therapy and Plavix 3. Acute renal injury; possible chronic kidney disease - We will monitor renal function and electrolytes along with strict ANAYA's; avoid nephrotoxins and hypotension; we will consult nephrology if creatinine continues to trend up 4. Tingling bilateral hands and feet; etiology unclear - We will order vitamin B12/folic acid; order thyroid profile 5. Hypertension; metoprolol 12.5 mg twice a day 6. Hypothyroidism; continue with home dose of levothyroxine 112 MCG daily 7. Diabetes mellitus; Levemir 28 units subcu daily at bedtime along with Accu- Cheks every before meals and at bedtime and sliding scale protocol 8. Hyperlipidemia; home dose of Lipitor 80 mg daily at bedtime and low febrile 160 mg daily 9. COPD; not in exacerbation - Perforomist 20 MCG inhalation twice a day along with DuoNeb nebulizer treatm ents 10. History of throat cancer/tracheostomy; trach collar with 60% FiO2 11. DVT prophylaxis; subcu heparin CODE STATUS; DO NOT RESUSCITATE Time with Patient: Greater than 30
[2019-07-09 17:52] LABS: Glucose,Whole Blood 99 mg/dL (75-99)
[2019-07-09] MEDS: PREGABALIN 75 MG CAP PO SCH (21:07)
[2019-07-09] MEDS: MELATONIN 5 MG TABLET PO SCH (21:07)
[2019-07-09 21:29] LABS: Glucose,Whole Blood 112 mg/dL (75-99)
[2019-07-09] MEDS: INSULIN DETEMIR (LEVEMIR) 100 UNIT/ML SYR SQ SCH (21:49)
[2019-07-09] MEDS: HEPARIN SOD,PORK IN 0.45% NACL 25,000 UNIT in 0.45% NACL 1 250ML.BAG IV SCH (21:51)
[2019-07-09] MEDS: ACETAMINOPHEN TAB 500 MG TAB PO PRN (21:52)
[2019-07-10 02:51] LABS: Glucose,Whole Blood 204 mg/dL (75-99)
[2019-07-10 04:07] LABS: Anisocytosis Slight; Basophils # (A) 0.2 k/uL (0-0.2); Basophils % (A) 2 %; Eosinophils # (A) 0.2 k/uL (0-0.7); Eosinophils % (A) 2 %; HCT 37.7 % (39.0-53.0); HGB 11.1 gm/dL (13.0-17.5); Hypochromasia Marked; Lymphocytes # (A) 0.6 k/uL (1.0-4.8); Lymphocytes % (A) 5 %; MCH 27.6 pg (25.0-35.0); MCHC 29.3 g/dL (31.0-37.0); MCV 94.1 fL (80.0-100.0); Mean Platelet Volume 8.1; Monocytes # (A) 0.5 k/uL (0-1.0); Monocytes % (A) 4 %; Neutrophils # (A) 9.8 k/uL (1.3-7.7); Neutrophils % (A) 86 %; Platelet Count 145 k/uL (150-450); Poikilocytosis Slight; RBC 4.01 m/uL (4.30-5.90); RDW 16.5 % (11.5-15.5); WBC 11.4 k/uL (3.8-10.6)
[2019-07-10 04:20] LABS: Albumin 3.9 g/dL (3.5-5.0); Calcium 8.6 mg/dL (8.4-10.2); Potassium 4.4 mmol/L (3.5-5.1); Total Bilirubin 0.4 mg/dL (0.2-1.3); Total Protein 7.3 g/dL (6.3-8.2)
[2019-07-10 06:29] LABS: Glucose,Whole Blood 117 mg/dL (75-99)
[2019-07-10] MEDS: LEVOTHYROXINE 112 MCG TAB PO SCH (07:05)
[2019-07-10 07:54] LABS: Glucose,Whole Blood 111 mg/dL (75-99)
[2019-07-10] MEDS: ALBUTEROL NEBULIZED 2.5 MG/3 ML INHALATION SCH ×3 (07:55→15:51)
[2019-07-10] MEDS: FORMOTEROL FUMARATE 20 MCG/2 ML NEBU INHALATION SCH (08:07)
[2019-07-10] MEDS: INSULIN ASPART (NovoLOG) 100 UNIT/ML VIAL SQ SCH ×7 (09:06→23:02)
[2019-07-10] MEDS: CLOPIDOGREL 75 MG TAB PO SCH (09:37)
[2019-07-10] MEDS: FAMOTIDINE 20 MG TAB PO SCH (09:37)
[2019-07-10] MEDS: ATORVASTATIN 80 MG TAB PO SCH (09:37)
[2019-07-10] MEDS: PREGABALIN 50 MG CAP PO SCH ×2 (09:37→17:02)
[2019-07-10] MEDS: CHOLECALCIFEROL 1,000 UNIT TAB PO SCH (09:37)
[2019-07-10] MEDS: METOPROLOL TARTRATE 12.5 MG TAB PO SCH ×2 (09:37→21:46)
[2019-07-10] MEDS: FENOFIBRATE 160 MG TAB PO SCH (09:37)
[2019-07-10] MEDS: SENNOSIDES 8.6 MG TAB PO SCH ×2 (09:37→21:16)
[2019-07-10] MEDS: BRIMONIDINE TARTRATE 0.2% DROPS 5 ML BTL BOTH EYES SCH (09:38)
[2019-07-10] MEDS: ASPIRIN 81 MG PO SCH (09:38)
[2019-07-10] MEDS: ASCORBIC ACID 500 MG TAB PO SCH (09:38)
[2019-07-10] MEDS: HYDROPHILIC CREAM 180 GM TUBE TOPICAL SCH ×2 (09:38→23:08)
[2019-07-10] MEDS: BETAMETHASONE DIPROPIONATE 0.05% CREAM 15 GM TUBE TOPICAL SCH (09:38)
[2019-07-10] MEDS: TERBINAFINE 1% CREAM 15 GM TUBE TOPICAL SCH ×2 (09:38→21:16)
[2019-07-10] MEDS: FUROSEMIDE 10 MG/ML 4 ML VIAL IV SCH ×2 (09:38→21:15)
[2019-07-10] MEDS: AMMONIUM LACTATE 12% LOTION 225 GM BTL TOPICAL SCH (09:42)
[2019-07-10 12:01] LABS: Glucose,Whole Blood 211 mg/dL (75-99)
[2019-07-10] MEDS: KETOCONAZOLE 2% SHAMPOO 1 APPLIC/ML TOPICAL SCH (12:19)
--- NOTE | 2019-07-10 12:34 | ECHOF ---
Referral Reason:abn trop MEASUREMENTS -------- HEIGHT: 182.9 cm WEIGHT: 129.7 kg BP: 144/64 RVIDd: 3.3 cm (< 3.3) IVSd: 1.5 cm (0.6 - 1.1) LVIDd: 4.9 cm (3.9 - 5.3) LVPWd: 1.6 cm (0.6 - 1.1) IVSs: 1.8 cm LVIDs: 3.9 cm LVPWs: 2.2 cm LA Diam: 3.3 cm (2.7 - 3.8) Ao Diam: 3.2 cm (2.0 - 3.7) AV Cusp: 2.2 cm (1.5 - 2.6) LA Diam: 4.2 cm (2.7 - 3.8) MV EXCURSION: 17.570 mm (> 18.000) MV EF SLOPE: 85 mm/s (70 - 150) EPSS: 0.9 cm MV E Karri: 0.86 m/s MV DecT: 254 ms MV A Karri: 1.21 m/s MV E/A Ratio: 0.71 RAP: 5.00 mmHg RVSP: 30.01 mmHg FINDINGS -------- Sinus rhythm. This was a technically adequate study. There is mild concentric left ventricular hypertrophy. There is normal global left ventricular cont ractility. Overall left ventricular systolic function is mildly impaired with, an EF between 45 - 5 0 %. Inferior Hypokinesis The right ventricle is normal in size. The left atrial size is normal. The right atrial size is normal. There is mild aortic valve sclerosis. Mild mitral annular calcification present. Mild mitral regurgitation is present. Mild tricuspid regurgitation present. Right ventricular systolic pressure is normal at < 35 mmHg. There is no evidence of pulmonary hypertension. Trace/mild (physiologic) pulmonic regurgitation. The aortic root size is normal. There is no pericardial effusion. CONCLUSIONS -------- 1. Sinus rhythm. 2. This was a technically adequate study. 3. There is mild concentric left ventricular hypertrophy. 4. There is normal global left ventricular contractility. 5. Overall left ventricular systolic function is mildly impaired with, an EF between 45 - 50 %. 6. Inferior Hypokinesis 7. The right ventricle is normal in size. 8. The left atrial size is normal. 9. The right atrial size is normal. 10. There is mild aortic valve sclerosis. 11. Mild mitral annular calcification present. 12. Mild mitral regurgitation is present. 13. Mild tricuspid regurgitation present. 14. Right ventricular systolic pressure is normal at < 35 mmHg. 15. There is no evidence of pulmonary hypertension. 16. Trace/mild (physiologic) pulmonic regurgitation. 17. The aortic root size is normal. 18. There is no pericardial effusion. HEAD BUTLER: Antoinette Hall RDCS
[2019-07-10 12:58] LABS: Glucose,Whole Blood 140 mg/dL (75-99)
--- NOTE | 2019-07-10 13:33 | P.PN ---
Subjective Progress Note Date: 07/10/19 This is a 69-year-old gentleman with history of throat cancer with tracheostomy in place, COPD, GERD, diabetes, hyperlipidemia, sleep apnea, hypothyroidism, prior history of smoking, patient quit smoking in 2016. He presents to the emergency room on this occasion with symptoms of tingling in his bilateral hands and feet, he also states that he experienced a fall prior to coming to the hospital. States he's been having some difficulty with urinating. He denies having any chest discomfort, and states that his breathing has been the same as his usual he denies any worsening in shortness of breath. His chest x-ray on presentation here showed mild pulmonary fibrosis with no heart failure. Oxygen saturation on presentation here 78% on room air EKG shows normal sinus rhythm with no acute changes noted. Blood pressure 130/60 with a heart rate in the 70s, 95% on trach collar, 60% FiO2, 98.2 temperature. White blood cell count 11.9 on admission 11.2 this morning, hemoglobin 11, platelet count 162, sodium 143, potassium 4.4, BUN 37 and creatinine 1.7. Troponins 0.23, 0.32, 0.29, BNP level 8830. Cardiology consultation was requested because of abnormality in troponin. At the time of my examination this morning, he sitting up at bedside, he has no complaints other than feeling hungry. 07/10/2019 Patient was seen and examined this morning, overall he feels better than presen tation here, denies any further tingling in his hands and feet. He is on his trach collar at 10 L satting 92%. White blood cell count 11.4, hemoglobin 11.1, platelet count 145. Sodium 142, potassium 4.4, BUN 35 and creatinine 1.7. Echocardiogram with Doppler study reveals an ejection fraction of 45-50%. We will continue current dose of IV Lasix, repeat a chest x-ray in the morning. Discontinue IV heparin. Objective - Vital Signs Vital signs: Vital Signs Temp 97.8 F 07/10/19 09:20 Pulse 96 07/10/19 11:00 Resp 20 07/10/19 09:20 BP 155/67 07/10/19 09:20 Pulse Ox 90 L 07/10/19 09:20 Intake & Output 07/09/19 07/10/19 07/10/19 18:59 06:59 18:59 Intake Total 642.684 576.307 Output Total 100 Balance 642.684 476.307 Weight 130 kg Intake: Intake, IV Titration 162.684 96.307 Amount Heparin Sod,Pork in 0.45% 162.684 96.307 NaCl 25,000 unit In 0.45 % NaCl 1 250ml.bag @ 9.3 UNITS/KG/HR 9.998 mls/hr IV .Q24H [facility] Rx#: [id number] Oral 480 480 Output: Urine 100 Other: # Voids 1 - Exam PHYSICAL EXAMINATION: GENERAL: 69-year-old gentleman in no acute distress at the time of my examination HEENT: Head is atraumatic, normocephalic. Pupils equal, round. Sclera anicteric. Conjunctiva are clear. Mucous membranes of the mouth are moist. Neck is supple. Tracheostomy in place There is no elevated jugular venous pressure. No carotid bruit is heard. HEART EXAMINATION: Heart S1, S2 normal. No murmur or gallop heard. CHEST EXAMINATION: Lungs reveal coarse rales throughout ABDOMEN: Soft, nontender. Bowel sounds are heard. No organomegaly noted. EXTREMITIES: 2+ peripheral pulses with no evidence of peripheral edema and no calf tenderness noted. NEUROLOGIC patient is awake, alert and oriented 3. - Labs CBC & Chem 7: 07/10/19 03:35 07/10/19 03:35 Labs: Abnormal Lab Results - Last 24 Hours (Table) 07/09/19 07/09/19 07/10/19 Range/Units 13:26 21:28 02:50 WBC (3.8-10.6) k/uL RBC (4.30-5.90) m/uL Hgb (13.0-17.5) gm/dL Hct (39.0-53.0) % MCHC (31.0-37.0) g/dL RDW (11.5-15.5) % Plt Count (150-450) k/uL Neutrophils # (1.3-7.7) k/uL Lymphocytes # (1.0-4.8) k/uL APTT (22.0-30.0) sec Chloride (98-107) mmol/L Carbon Dioxide (22-30) mmol/L BUN (9-20) mg/dL Creatinine (0.66-1.25) mg/dL Glucose (74-99) mg/dL POC Glucose (mg/dL) 108 H 112 H 204 H (75-99) mg/dL 07/10/19 07/10/19 07/10/19 Range/Units 03:35 03:35 03:35 WBC 11.4 H (3.8-10.6) k/uL RBC 4.01 L (4.30-5.90) m/uL Hgb 11.1 L (13.0-17.5) gm/dL Hct 37.7 L (39.0-53.0) % MCHC 29.3 L (31.0-37.0) g/dL RDW 16.5 H (11.5-15.5) % Plt Count 145 L (150-450) k/uL Neutrophils # 9.8 H (1.3-7.7) k/uL Lymphocytes # 0.6 L (1.0-4.8) k/uL APTT 83.0 H (22.0-30.0) sec Chloride 92 L (98-107) mmol/L Carbon Dioxide 43 H* (22-30) mmol/L BUN 35 H (9-20) mg/dL Creatinine 1.72 H (0.66-1.25) mg/dL Glucose 143 H (74-99) mg/dL POC Glucose (mg/dL) (75-99) mg/dL 07/10/19 07/10/19 07/10/19 Range/Units 06:23 07:52 11:37 WBC (3.8-10.6) k/uL RBC (4.30-5.90) m/uL Hgb (13.0-17.5) gm/dL Hct (39.0-53.0) % MCHC (31.0-37.0) g/dL RDW (11.5-15.5) % Plt Count (150-450) k/uL Neutrophils # (1.3-7.7) k/uL Lymphocytes # (1.0-4.8) k/uL APTT (22.0-30.0) sec Chloride (98-107) mmol/L Carbon Dioxide (22-30) mmol/L BUN (9-20) mg/dL Creatinine (0.66-1.25) mg/dL Glucose (74-99) mg/dL POC Glucose (mg/dL) 117 H 111 H 211 H (75-99) mg/dL 07/10/19 Range/Units 12:41 WBC (3.8-10.6) k/uL RBC (4.30-5.90) m/uL Hgb (13.0-17.5) gm/dL Hct (39.0-53.0) % MCHC (31.0-37.0) g/dL RDW (11.5-15.5) % Plt Count (150-450) k/uL Neutrophils # (1.3-7.7) k/uL Lymphocytes # (1.0-4.8) k/uL APTT (22.0-30.0) sec Chloride (98-107) mmol/L Carbon Dioxide (22-30) mmol/L BUN (9-20) mg/dL Creatinine (0.66-1.25) mg/dL Glucose (74-99) mg/dL POC Glucose (mg/dL) 140 H (75-99) mg/dL Assessment and Plan Plan: Assessment and plan #1 symptoms of bilateral hand and feet tingling #2 abnormality in troponin, with no significant rise and fall pattern, likely secondary to abnormal renal function, or hypoxia #3 history of throat cancer with tracheostomy #4 acute on chronic renal insufficiency #5 hyperlipidemia #6 sleep apnea #7 hypothyroidism #8 elevated BNP , possible mild CHF #9 Copd #10 Diabetes #[address] Plan Echocardiogram with Doppler study revealed an ejection fraction of 45-50%. We will continue current dose of IV Lasix, repeat a chest x-ray in the morning tomorrow. DNP note has been reviewed, I agree with a documented findings and plan of care. Patient was seen and examined.
--- NOTE | 2019-07-10 13:48 | CT ---
EXAMINATION TYPE: CT chest wo con DATE OF EXAM: 07/10/2019 COMPARISON: None HISTORY: Assess for pulmonary fibrosis vs effusion CT DLP: 875.[address] of the chest was performed with lung and mediastinal window settings submitted. The la ck of contrast limits evaluation of the vascular, mediastinal and parenchymal structures including th e upper abdomen. LUNGS: There are tiny basilar pleural effusions noted. Airspace consolidation is seen at the lung bas es which may reflect pneumonia and/or aspiration. Upper lobe groundglass infiltrates may reflect acut e inflammatory process. Moderate emphysematous changes noted. MEDIASTINUM/NATALEE: Thoracic aorta is of normal caliber with limited evaluation given lack of contrast . The heart is mildly enlarged. No evidence for mediastinal mass. No lymph nodes greater than 1cm . UPPER ABDOMEN: No significant abnormality is seen. OTHER: No significant other abnormality. IMPRESSION: 1. Airspace consolidation is seen at the lung bases which may reflect pneumonia and/or aspiration. Upper lobe groundglass infiltrates may reflect acute inflammatory process. 2. Small bilateral pleural effusions.
--- NOTE | 2019-07-10 15:08 | P.PN ---
Subjective 69-year-old male was admitted for acute respiratory failure patient does have a tracheostomy because of his esophageal cancer in the past and the does have history of congestive heart failure chronic diastolic as a systolic dysfunction patient is presently requiring about 10 L of oxygen. Patient had a CAT scan of the chest which showed bilateral upper groundglass pasty is which is probably from congestive heart failure for which patient is on IV Lasix and patient has bilateral lower limb lobe infiltrates with air bronchogram on the right side patient will be started on Zosyn. Patient has limited air entry into bilateral lung sparrow may benefit from inhaled steroids or systemic steroids early with addition to pulmonology who was consult that. Patient appears to have alkalosis, I'll obtain an ABG to assess her pCO2 as patient can have contraction alkalosis as well because of IV Lasix. I cannot clearly assess JVD. Constitutional: Denied any fatigue denied any fever. Cardio vascular: denied any chest pain, palpitations Gastrointestinal denied any nausea vomiting Pulmonary: Denied any shortness of breath cough Neurologic denied any new focal deficits All inpatient medications were reviewed and appropriate changes in these medi cations as dictated in the interval history and assessment and plan. Objective - Vital Signs Vital signs: Vital Signs Temp 98.3 F 07/10/19 12:00 Pulse 82 07/10/19 12:00 Resp 20 07/10/19 12:00 BP 142/63 07/10/19 12:00 Pulse Ox 92 L 07/10/19 12:00 Intake & Output 07/09/19 07/10/19 07/10/19 18:59 06:59 18:59 Intake Total 642.684 576.307 120 Output Total 100 Balance 642.684 476.307 120 Weight 130 kg Intake: Intake, IV Titration 162.684 96.307 Amount Heparin Sod,Pork in 0.45% 162.684 96.307 NaCl 25,000 unit In 0.45 % NaCl 1 250ml.bag @ 9.3 UNITS/KG/HR 9.998 mls/hr IV .Q24H [facility] Rx#: [id number] Oral 480 480 120 Output: Urine 100 Other: # Voids 1 0 - Exam PHYSICAL EXAMINATION: GENERAL: The patient is alert and oriented x3, not in any acute distress. Well developed, well nourished. HEENT: Pupils are round and equally reacting to light. EOMI. No scleral icterus. No conjunctival pallor. Normocephalic, atraumatic. No pharyngeal erythema. No thyromegaly. CARDIOVASCULAR: S1 and S2 present. No murmurs, rubs, or gallops. PULMONARY: Rhonchus breath sounds ABDOMEN: Soft, nontender, nondistended, normoactive bowel sounds. No palpable organomegaly. MUSCULOSKELETAL: No joint swelling or deformity. EXTREMITIES: No cyanosis, clubbing, or pedal edema. NEUROLOGICAL: Gross neurological examination did not reveal any focal deficits. SKIN: No rashes. - Labs CBC & Chem 7: 07/10/19 03:35 07/10/19 03:35 Labs: Abnormal Lab Results - Last 24 Hours (Table) 07/09/19 07/10/19 07/10/19 Range/Units 21:28 02:50 03:35 WBC 11.4 H (3.8-10.6) k/uL RBC 4.01 L (4.30-5.90) m/uL Hgb 11.1 L (13.0-17.5) gm/dL Hct 37.7 L (39.0-53.0) % MCHC 29.3 L (31.0-37.0) g/dL RDW 16.5 H (11.5-15.5) % Plt Count 145 L (150-450) k/uL Neutrophils # 9.8 H (1.3-7.7) k/uL Lymphocytes # 0.6 L (1.0-4.8) k/uL APTT (22.0-30.0) sec Chloride (98-107) mmol/L Carbon Dioxide (22-30) mmol/L BUN (9-20) mg/dL Creatinine (0.66-1.25) mg/dL Glucose (74-99) mg/dL POC Glucose (mg/dL) 112 H 204 H (75-99) mg/dL 07/10/19 07/10/19 07/10/19 Range/Units 03:35 03:35 06:23 WBC (3.8-10.6) k/uL RBC (4.30-5.90) m/uL Hgb (13.0-17.5) gm/dL Hct (39.0-53.0) % MCHC (31.0-37.0) g/dL RDW (11.5-15.5) % Plt Count (150-450) k/uL Neutrophils # (1.3-7.7) k/uL Lymphocytes # (1.0-4.8) k/uL APTT 83.0 H (22.0-30.0) sec Chloride 92 L (98-107) mmol/L Carbon Dioxide 43 H* (22-30) mmol/L BUN 35 H (9-20) mg/dL Creatinine 1.72 H (0.66-1.25) mg/dL Glucose 143 H (74-99) mg/dL POC Glucose (mg/dL) 117 H (75-99) mg/dL 07/10/19 07/10/19 07/10/19 Range/Units 07:52 11:37 12:41 WBC (3.8-10.6) k/uL RBC (4.30-5.90) m/uL Hgb (13.0-17.5) gm/dL Hct (39.0-53.0) % MCHC (31.0-37.0) g/dL RDW (11.5-15.5) % Plt Count (150-450) k/uL Neutrophils # (1.3-7.7) k/uL Lymphocytes # (1.0-4.8) k/uL APTT (22.0-30.0) sec Chloride (98-107) mmol/L Carbon Dioxide (22-30) mmol/L BUN (9-20) mg/dL Creatinine (0.66-1.25) mg/dL Glucose (74-99) mg/dL POC Glucose (mg/dL) 111 H 211 H 140 H (75-99) mg/dL Assessment and Plan Plan: Acute the respiratory failure mostly hypoxic and Seroquel and start failure exacerbation that may be a competent of COPD contributing to that will obtain ABG pulmonary was consult it, patient appears to have bilateral pneumonia predominant right lower lobe pneumonia for which patient will be started on Zosyn. -Elevated troponin secondary to Crestor heart failure and possible sepsis and acute renal failure -Acute renal failure prerenal azotemia baseline creatinine around 0.9. Acute renal failure Is believed to be secondary to heart failure which is again chronic systolic as well as diastolic dysfunction which is expected to improve with IV Lasix -Hypertension #Hypothyroidism -Type 2 diabetes mellitus continue with present regimen fairly controlled blood sugars with the present regimen Plan-hyperlipidemia -COPD with possible acute exacerbation continue with the enema nebulizations may need systemic steroids.
[2019-07-10 16:44] LABS: ABG Oxygen Saturation 91.6 % (94-97); ABG PH 7.21 (7.35-7.45); ABG PO2 71 mmHg (83-108); Allen Test Performed? Yes
[2019-07-10 16:51] LABS: ABG PCO2 >120 mmHg (35-45)
[2019-07-10] MEDS: PIPERACILLIN-TAZOBACTAM 3.375 GM in SODIUM CHLORIDE 0.9% 100 ML IVPB SCH ×2 (17:02→23:08)
[2019-07-10 18:20] LABS: Glucose,Whole Blood 102 mg/dL (75-99)
[2019-07-10] MEDS: IPRATROPIUM-ALBUTEROL 3 ML NEB INHALATION SCH (20:01)
[2019-07-10] MEDS: BUDESONIDE 0.5 MG/2 ML NEBU INHALATION SCH (20:01)
[2019-07-10 20:46] LABS: Glucose,Whole Blood 196 mg/dL (75-99)
[2019-07-10] MEDS: methylPREDNISolone SOD SUCCI 125 MG/2 ML VIAL IV SCH (21:15)
[2019-07-10] MEDS: PREGABALIN 75 MG CAP PO SCH (21:16)
[2019-07-10] MEDS: MELATONIN 5 MG TABLET PO SCH (21:17)
--- NOTE | 2019-07-10 21:31 | CONS ---
CONSULTATION Samm Geiger is a 69-year-old male who comes into the ED with increasing shortness of breath. This has been associated with swelling of his lower extremities and his hands. He has been short of breath he says for approximately 3-4 years. He also had tingling in his hands and feet and was having some tremors. He was not able to urinate and subsequently was seen in the ER and admitted for further evaluation and management. He denies any clear fever or chills but has been having some cough and some wheezing. PAST MEDICAL HISTORY: Positive for laryngeal cancer, status post laryngectomy, previous radiation and I believe chemotherapy as well. He has a previous tracheostomy with subsequent PEG placement and removal of PEG. He has a previous history of COPD and actually [facility], but the patient did not undergo pulmonary rehab at the time. History of obstructive sleep apnea in the past. History of congestive heart failure. PAST FAMILY MEDICAL HISTORY: Is positive for congestive heart failure in both his mother and his father. SOCIAL HISTORY: Patient is a former smoker. He was exposed to Agent [place]. He is a of the [place] War. MEDICATIONS: Prior to admission were Requip, insulin, fenofibrate, melatonin, betamethasone cream, Alphagan eye drops, olodaterol, albuterol nebulized, Lyrica, cholecalciferol ascorbic acid, acetaminophen, Ranitidine, Protonix, Plavix, Lasix, Lipitor, low-dose aspirin. REVIEW OF SYSTEMS: Noncontributory. PHYSICAL EXAMINATION: His blood pressure is 160/71, respiratory rate of 20, pulse rate of 95, temperature 98.2 degrees Fahrenheit. When he came to the ER, he was afebrile with an O2 saturation of only 78% on room air. HEENT reveals pupils equal, mild prominence of the jugular veins. Trach collar is in place. Chest reveals scattered fine crackles bilaterally. Faint expiratory wheeze on forced exhalation. There is wilson colored secretions coming out of his tracheostomy site. Cardiovascular system revealed an S1, S2. No S3, S4 short systolic murmur. Abdomen is soft. There is 1+ to 2+ pedal edema. LABS: Revealed a white count of 11.9, hemoglobin of 11.3. There were 9.6 1000 neutrophils, 0.2 1000 eosinophils. ABG showed a pH of 7.21, pCO2 greater than 120, PO2 of 71, O2 saturation of 91.6 on a FiO2 of 50%. Bicarbonate on the electrolytes was 43. Glucose is 143, troponin 0.231. NT proBNP is 8830. X-RAY: Chest x-ray showed bilateral interstitial infiltrates and was personally reviewed. Chest CT scan showed tiny bibasilar effusions. There is some airspace consolidation in the lung bases. There are ground-glass opacities that are seen in the upper zones anteriorly, there are some changes consistent with emphysema as well. IMPRESSION: At this time: 1. Acute on chronic respiratory failure with CO2 retention. 2. Congestive heart failure with ejection fraction that is mildly diminished along with a borderline high normal pulmonary artery systolic pressure consistent with early pulmonary hypertension and possibly cor pulmonale. 3. Chronic obstructive pulmonary disease. 4. Possible alveolar process which may be due to noncardiac reasons causing a noncardiogenic pulmonary edema with interstitial changes which may be due to inflammation, infectious versus noninfectious. 5. Possible background interstitial changes which may be due to previous radiation treatment or a background of early lung fibrosis. At this point in time from a pulmonary standpoint: Optimize his fluid status. Give him 3 doses of Diamox to see if we may be able to stimulate his respiratory drive and decrease his FiO2 so as not to blunt his hypoxic drive. Avoid any narcotic medications. Start him on IV and aerosolized steroids. Check ARIN, rheumatoid factor, and a hypersensitivity pneumonitis panel. His troponin elevation may be due to congestive heart failure and possibly due to hypoxemia as well. His prognosis at this time is guarded. He is also status post tracheostomy from previous laryngeal cancer and subsequent laryngectomy. Per his family and him. He is NO CODE at this time. We will follow him closely during his hospital stay and appreciate the opportunity to participate in his care. I would like to thank you for allowing me the privilege of taking care of this . MMODL / IJN: [id number] /
[2019-07-10] MEDS: INSULIN DETEMIR (LEVEMIR) 100 UNIT/ML SYR SQ SCH (21:46)
[2019-07-10] MEDS: HEPARIN SOD,PORK IN 0.45% NACL 25,000 UNIT in 0.45% NACL 1 250ML.BAG IV SCH (22:56)
[2019-07-10 23:48] LABS: Glucose,Whole Blood 144 mg/dL (75-99)
--- NOTE | 2019-07-11 01:41 | CT ---
EXAM: CT Head Without Intravenous Contrast CLINICAL HISTORY: ITS.REASON CT Reason: fall TECHNIQUE: Axial computed tomography images of the head/brain without intravenous contrast. CTDI is 49.1 mGy and DLP is 1107.4 mGy-cm. This CT exam was performed using one or more of the following dose reduction techniques: automated exposure control, adjustment of the mA and/or kV according to patient size, and/or use of iterative reconstruction technique. COMPARISON: No relevant prior studies available. FINDINGS: Brain: No intracranial hemorrhage or mass effect. Mild atrophy. Calcified skull base arteries. Ventricles: Unremarkable. No ventriculomegaly. Bones/joints: Unremarkable. No acute fracture. Soft tissues: Unremarkable. Sinuses: Fluid in the sphenoid sinus should be correlated for symptoms of sinusitis. Mastoid air cells: Unremarkable as visualized. No mastoid effusion. IMPRESSION: No acute brain or skull injury. Sphenoid sinus fluid. Possible sinusitis.
[2019-07-11] MEDS: methylPREDNISolone SOD SUCCI 125 MG/2 ML VIAL IV SCH ×3 (03:32→13:24)
[2019-07-11] MEDS: LEVOTHYROXINE 112 MCG TAB PO SCH (07:20)
[2019-07-11] MEDS: IPRATROPIUM-ALBUTEROL 3 ML NEB INHALATION SCH ×4 (07:23→20:21)
[2019-07-11] MEDS: BUDESONIDE 0.5 MG/2 ML NEBU INHALATION SCH ×2 (07:23→20:21)
[2019-07-11 07:33] LABS: Glucose,Whole Blood 148 mg/dL (75-99)
[2019-07-11 07:35] LABS: Anisocytosis Slight; Basophils % (A) 0 %; Eosinophils # (A) 0.1 k/uL (0-0.7); Eosinophils % (A) 1 %; HCT 35.2 % (39.0-53.0); HGB 10.5 gm/dL (13.0-17.5); Hypochromasia Marked; Lymphocytes # (A) 0.5 k/uL (1.0-4.8); Lymphocytes % (A) 5 %; MCH 28.6 pg (25.0-35.0); MCHC 29.9 g/dL (31.0-37.0); MCV 95.4 fL (80.0-100.0); Macrocytosis Slight; Mean Platelet Volume 9.4; Monocytes # (A) 0.1 k/uL (0-1.0); Monocytes % (A) 1 %; Neutrophils # (A) 9.2 k/uL (1.3-7.7); Neutrophils % (A) 92 %; Platelet Count 133 k/uL (150-450); Poikilocytosis Slight; RBC 3.69 m/uL (4.30-5.90); RDW 17.2 % (11.5-15.5)
[2019-07-11] MEDS: INSULIN ASPART (NovoLOG) 100 UNIT/ML VIAL SQ SCH ×7 (08:44→21:10)
[2019-07-11] MEDS: PIPERACILLIN-TAZOBACTAM 3.375 GM in SODIUM CHLORIDE 0.9% 100 ML IVPB SCH ×3 (08:45→23:06)
[2019-07-11] MEDS: CLOPIDOGREL 75 MG TAB PO SCH (08:48)
[2019-07-11] MEDS: SENNOSIDES 8.6 MG TAB PO SCH ×2 (08:48→21:17)
[2019-07-11] MEDS: FENOFIBRATE 160 MG TAB PO SCH (08:48)
[2019-07-11] MEDS: FAMOTIDINE 20 MG TAB PO SCH (08:48)
[2019-07-11] MEDS: ATORVASTATIN 80 MG TAB PO SCH (08:48)
[2019-07-11] MEDS: PREGABALIN 50 MG CAP PO SCH ×2 (08:48→18:00)
[2019-07-11] MEDS: METOPROLOL TARTRATE 12.5 MG TAB PO SCH ×2 (08:48→21:17)
[2019-07-11] MEDS: ASPIRIN 81 MG PO SCH (08:48)
[2019-07-11] MEDS: BETAMETHASONE DIPROPIONATE 0.05% CREAM 15 GM TUBE TOPICAL SCH (08:49)
[2019-07-11] MEDS: CHOLECALCIFEROL 1,000 UNIT TAB PO SCH (08:49)
[2019-07-11] MEDS: HYDROPHILIC CREAM 180 GM TUBE TOPICAL SCH ×2 (08:49→21:37)
[2019-07-11] MEDS: FUROSEMIDE 10 MG/ML 4 ML VIAL IV SCH ×2 (08:49→21:16)
[2019-07-11] MEDS: AMMONIUM LACTATE 12% LOTION 225 GM BTL TOPICAL SCH (08:49)
[2019-07-11] MEDS: TERBINAFINE 1% CREAM 15 GM TUBE TOPICAL SCH ×2 (08:49→21:37)
[2019-07-11] MEDS: KETOCONAZOLE 2% SHAMPOO 1 APPLIC/ML TOPICAL SCH (08:49)
[2019-07-11] MEDS: ASCORBIC ACID 500 MG TAB PO SCH (08:50)
[2019-07-11] MEDS: BRIMONIDINE TARTRATE 0.2% DROPS 5 ML BTL BOTH EYES SCH (08:50)
[2019-07-11 10:00] LABS: Polychromasia Present
--- NOTE | 2019-07-11 10:33 | XR ---
EXAMINATION TYPE: XR chest 1V portable DATE OF EXAM: 07/11/2019 COMPARISON: Prior chest x-ray 07/08/[address] 07/10/2019 HISTORY: Shortness of breath TECHNIQUE: Single frontal view of the chest is obtained. FINDINGS: There are overlying leads, artifact and the patient is rotated. Interstitium is prominent. There is bibasilar density which persists. The cardiac silhouette size is enlarged, stable. Under lying emphysematous changes present at the lung apices. The aorta is aneurysmal and dense. The osseou s structures are intact. IMPRESSION: Basilar atelectasis versus pneumonia or edema. Suspect aortic aneurysm. Cardiomegaly. Co rrelate to exclude congestive heart failure.
[2019-07-11 11:56] LABS: Rheumatoid Factor <4 IU/mL (0-15)
[2019-07-11 13:09] LABS: Glucose,Whole Blood 163 mg/dL (75-99)
[2019-07-11 17:16] LABS: Glucose,Whole Blood 189 mg/dL (75-99)
[2019-07-11] MEDS: methylPREDNISolone SOD SUCCI 40 MG/ML 1 ML VIAL IV SCH ×2 (17:59→23:07)
--- NOTE | 2019-07-11 19:56 | P.PN ---
Subjective Progress Note Date: 07/11/19 Principal diagnosis: 69-year-old male was admitted for acute respiratory failure patient does have a tracheostomy because of his esophageal cancer in the past and the does have hist ory of congestive heart failure chronic diastolic as a systolic dysfunction patient is presently requiring about 10 L of oxygen. Patient had a CAT scan of the chest which showed bilateral upper groundglass pasty is which is probably from congestive heart failure for which patient is on IV Lasix and patient has bilateral lower limb lobe infiltrates with air bronchogram on the right side patient will be started on Zosyn. Patient has limited air entry into bilateral lung sparrow may benefit from inhaled steroids or systemic steroids early with addition to pulmonology who was consult that. Patient appears to have alkalosis, I'll obtain an ABG to assess her pCO2 as patient can have contraction alkalosis as well because of IV Lasix. I cannot clearly assess JVD. Constitutional: Denied any fatigue denied any fever. Cardio vascular: denied any chest pain, palpitations Gastrointestinal denied any nausea vomiting Pulmonary: Denied any shortness of breath cough Neurologic denied any new focal deficits 07/11/2019 Patient is sitting up in bed in mild acute distress. Patient is having some diff iculty in breathing but states this hasn't worsened. Patient family member is at the bedside and was discussed with the patient that patient does not want to be ventilated and is unable to be placed on a Bipap due to having an active open stoma. Patient is currently receiving oxygen via a trach collar at 35%. Prednisone was tapered to 40mg IVP every eight hours. Will continue to monitor vital signs and labs closely. Patient denies any chest pain or palpitations. Patient denies any nausea or vomiting. Patient has been eating some but not much of an appetite. Patient is afebrile. Guarded prognosis. Objective - Vital Signs Vital signs: Vital Signs Temp 98.4 F 07/11/19 11:46 Pulse 91 07/11/19 11:46 Resp 20 07/11/19 11:46 BP 134/61 07/11/19 11:46 Pulse Ox 91 L 07/11/19 11:46 Intake & Output 07/10/19 07/11/19 07/11/19 18:59 06:59 18:59 Intake Total 393.693 240 Output Total 1700 2900 Balance 393.693 -1700 -2660 Intake: Intake, IV Titration 153.693 Amount Heparin Sod,Pork in 0.45% 153.693 NaCl 25,000 unit In 0.45 % NaCl 1 250ml.bag @ 9.3 UNITS/KG/HR 9.998 mls/hr IV .Q24H [facility] Rx#: [id number] Oral 240 240 Output: Urine 1700 2900 Uretheral (Friedman) 500 500 Other: Voiding Method Toilet Indwelling Catheter # Voids 1 # Bowel Movements 0 - Exam PHYSICAL EXAMINATION: GENERAL: The patient is alert and oriented x3, in mild acute distress. Well dev eloped, well nourished. Vitals are stable. Temp is 98.4F, pulse is 91, resp are 20, BP is 134/61, and 02 is 91% on trach collar at 35%. HEENT: Pupils are round and equally reacting to light. EOMI. No scleral icterus. No conjunctival pallor. Normocephalic, atraumatic. No pharyngeal erythema. No thyromegaly. NECK: Active open stoma of the trachea noted with trach collar noted as well CARDIOVASCULAR: S1 and S2 present. No murmurs, rubs, or gallops. PULMONARY: Rhonchus breath sounds ABDOMEN: Soft, nontender, nondistended, normoactive bowel sounds. No palpable organomegaly. MUSCULOSKELETAL: No joint swelling or deformity. EXTREMITIES: No cyanosis, clubbing, or pedal edema. NEUROLOGICAL: Gross neurological examination did not reveal any focal deficits. SKIN: No rashes. - Labs CBC & Chem 7: 07/11/19 05:40 07/10/19 03:35 Labs: Abnormal Lab Results - Last 24 Hours (Table) 07/10/19 07/10/19 07/10/19 Range/Units 16:42 18:03 20:44 RBC (4.30-5.90) m/uL Hgb (13.0-17.5) gm/dL Hct (39.0-53.0) % MCHC (31.0-37.0) g/dL RDW (11.5-15.5) % Plt Count (150-450) k/uL Neutrophils # (1.3-7.7) k/uL Lymphocytes # (1.0-4.8) k/uL ABG pH 7.21 L (7.35-7.45) ABG pCO2 >120 H* (35-45) mmHg ABG pO2 71 L (83-108) mmHg ABG O2 Saturation 91.6 L (94-97) % POC Glucose (mg/dL) 102 H 196 H (75-99) mg/dL 07/10/19 07/11/19 07/11/19 Range/Units 23:47 05:40 07:32 RBC 3.69 L (4.30-5.90) m/uL Hgb 10.5 L (13.0-17.5) gm/dL Hct 35.2 L (39.0-53.0) % MCHC 29.9 L (31.0-37.0) g/dL RDW 17.2 H (11.5-15.5) % Plt Count 133 L (150-450) k/uL Neutrophils # 9.2 H (1.3-7.7) k/uL Lymphocytes # 0.5 L (1.0-4.8) k/uL ABG pH (7.35-7.45) ABG pCO2 (35-45) mmHg ABG pO2 (83-108) mmHg ABG O2 Saturation (94-97) % POC Glucose (mg/dL) 144 H 148 H (75-99) mg/dL 07/11/19 Range/Units 13:07 RBC (4.30-5.90) m/uL Hgb (13.0-17.5) gm/dL Hct (39.0-53.0) % MCHC (31.0-37.0) g/dL RDW (11.5-15.5) % Plt Count (150-450) k/uL Neutrophils # (1.3-7.7) k/uL Lymphocytes # (1.0-4.8) k/uL ABG pH (7.35-7.45) ABG pCO2 (35-45) mmHg ABG pO2 (83-108) mmHg ABG O2 Saturation (94-97) % POC Glucose (mg/dL) 163 H (75-99) mg/dL Assessment and Plan Assessment: Acute the respiratory failure mostly hypoxic and acue renal failure exacerbation that may be a component of COPD contributing to that will obtain ABG. ABG shows a bicarb undetectable over 50 and a PC02 of 120. pulmonary was consulted, patient appears to have bilateral pneumonia predominant right lower lobe pneumo alissa for which patient will be started on Zosyn. -Elevated troponin secondary to congestive heart failure and possible sepsis and acute renal failure -Acute renal failure prerenal azotemia baseline creatinine around 0.9. ARF Is believed to be secondary to heart failure which is again chronic systolic as well as diastolic dysfunction which is expected to improve with IV Lasix -Hypertension #Hypothyroidism -Type 2 diabetes mellitus continue with present regimen fairly controlled blood sugars with the present regimen Plan-hyperlipidemia -COPD with possible acute exacerbation continue with inhaled nebulizations, IV systemic steroids
[2019-07-11 21:08] LABS: Glucose,Whole Blood 126 mg/dL (75-99)
[2019-07-11] MEDS: MELATONIN 5 MG TABLET PO SCH (21:16)
[2019-07-11] MEDS: INSULIN DETEMIR (LEVEMIR) 100 UNIT/ML SYR SQ SCH (21:16)
[2019-07-11] MEDS: PREGABALIN 75 MG CAP PO SCH (21:23)
[2019-07-11] MEDS: ACETAMINOPHEN TAB 500 MG TAB PO PRN (21:34)
--- NOTE | 2019-07-11 22:37 | PN ---
PROGRESS NOTE DATE OF SERVICE: 07/11/2019 This patient has been hemodynamically stable and is less short of breath. He is actually asking when he can be discharged home. He has less asterixis and is more awake and alert. On physical examination, his blood pressure is 140/66, respiratory rate of 18, pulse rate of 99, temperature 98.4. Oxygen saturation on 35% trach collar is 89%. HEENT reveals a tracheostomy opening in the neck. Chest reveals decreased breath sounds at the bases with scattered crackles. No clear wheeze today. Cardiovascular system reveals an S1, S2. Abdomen soft. There is trace pedal edema. White count is 10, hemoglobin 10.5. IMPRESSION AT THIS TIME: 1. Acute on chronic respiratory failure secondary to hypoxemia and hypercarbia. 2. Acute interstitial pneumonia which may in part be due to allergic etiology. 3. Congestive heart failure. 4. Obesity. 5. Previous laryngeal cancer, status post tracheostomy and laryngectomy. At this point in time from a pulmonary standpoint, continue IV and aerosolized steroids. Keep him in negative fluid balance. Keep his FiO2 low to keep his saturations in the high 80s, low 90s. Increase his activity level. Consider switching him to oral steroids tomorrow if he is otherwise stable. He was counseled regarding his condition and this approach and would benefit from outpatient pulmonary rehab at some point. ROBL / BUFFYN: [id number] /
--- NOTE | 2019-07-11 22:46 | PN ---
PROGRESS NOTE This patient is admitted with respiratory distress. Patient has a moderate to severe COPD. The CT scan was suggestive of possible inflammatory lung process. The patient is being treated for congestive cardiac failure. Also patient BNP level was elevated. He is feeling better. Cough is improved. Blood pressure is 140/66 mmHg. Oxygen saturation is 90%. First and second heart sounds are normal. Bilateral basal rales are noted. We will continue the IV Lasix at present. Patient is getting Solu-Medrol as well as inhalers. MMODL / IJN: [id number] /
[2019-07-12 03:33] LABS: Glucose,Whole Blood 190 mg/dL (75-99)
[2019-07-12] MEDS: LEVOTHYROXINE 112 MCG TAB PO SCH (06:38)
[2019-07-12 07:23] LABS: Glucose,Whole Blood 156 mg/dL (75-99)
[2019-07-12] MEDS: INSULIN ASPART (NovoLOG) 100 UNIT/ML VIAL SQ SCH ×7 (07:25→22:10)
[2019-07-12] MEDS: IPRATROPIUM-ALBUTEROL 3 ML NEB INHALATION SCH ×4 (07:55→19:12)
[2019-07-12] MEDS: BUDESONIDE 0.5 MG/2 ML NEBU INHALATION SCH ×2 (07:55→19:12)
[2019-07-12] MEDS: PIPERACILLIN-TAZOBACTAM 3.375 GM in SODIUM CHLORIDE 0.9% 100 ML IVPB SCH ×3 (08:21→23:19)
[2019-07-12] MEDS: methylPREDNISolone SOD SUCCI 40 MG/ML 1 ML VIAL IV SCH ×3 (08:21→23:19)
[2019-07-12] MEDS: PREGABALIN 50 MG CAP PO SCH ×2 (08:22→15:51)
[2019-07-12] MEDS: FAMOTIDINE 20 MG TAB PO SCH (08:22)
[2019-07-12] MEDS: SENNOSIDES 8.6 MG TAB PO SCH ×2 (08:22→22:09)
[2019-07-12] MEDS: ASPIRIN 81 MG PO SCH (08:22)
[2019-07-12] MEDS: CLOPIDOGREL 75 MG TAB PO SCH (08:22)
[2019-07-12] MEDS: FUROSEMIDE 10 MG/ML 4 ML VIAL IV SCH (08:22)
[2019-07-12] MEDS: METOPROLOL TARTRATE 12.5 MG TAB PO SCH ×2 (08:22→22:09)
[2019-07-12] MEDS: CHOLECALCIFEROL 1,000 UNIT TAB PO SCH (08:22)
[2019-07-12] MEDS: ATORVASTATIN 80 MG TAB PO SCH (08:22)
[2019-07-12] MEDS: FENOFIBRATE 160 MG TAB PO SCH (08:22)
[2019-07-12] MEDS: HYDROPHILIC CREAM 180 GM TUBE TOPICAL SCH ×2 (08:26→23:19)
[2019-07-12] MEDS: TERBINAFINE 1% CREAM 15 GM TUBE TOPICAL SCH ×2 (08:26→23:19)
[2019-07-12] MEDS: KETOCONAZOLE 2% SHAMPOO 1 APPLIC/ML TOPICAL SCH (08:26)
[2019-07-12] MEDS: AMMONIUM LACTATE 12% LOTION 225 GM BTL TOPICAL SCH (08:26)
--- NOTE | 2019-07-12 09:13 | CONS ---
CONSULTATION DATE OF SERVICE: 07/11/2019 REASON FOR CONSULTATION: Infection versus inflammation. HISTORY OF PRESENT ILLNESS: The patient is a 69-year-old, male with a past medical history significant for laryngeal cancer, status post tracheostomy and laryngectomy in this patient who presented to [facility] on 07/08/2019 with chief complaint: of tingling in his hands and feet and some shortness of breath. The patient denies having any history or symptoms of fever with the legs and hands and symptom has been mostly tingling in the lower extremity and apparently he did have more swelling with some questionable redness to the lower legs/ Patient mild increasing shortness of breath and he did have a very minimal cough, but not bringing up any sputum. No chest pain. No nausea, no vomiting, 1 abdominal pain and no diarrhea. With these symptoms, the patient has been evaluated by the physician, the patient did have a chest x-ray when admitted to the hospital shows mild pulmonary fibrosis. No acute disease. No heart failure. The patient did have a CT of the chest completed yesterday afternoon which shows airspace consultation is seen at the lung bases which may reflect pneumonia or aspiration. Upper lobe ground-glass infiltrate may reflect acute inflammatory process. The patient has been started on Zosyn. Infectious Disease was consulted for further recommendation regarding antibiotic therapy. REVIEW OF SYSTEMS: Positive points have been mentioned in HPI. Rest of the systems are negative. PAST MEDICAL HISTORY: Laryngeal cancer, heart failure, COPD, , hyperlipidemia, [place], osteoarthritis, pneumonia, possible history appendectomy and tracheostomy. SOCIAL HISTORY: Remote smoking, no drinking or drug use. FAMILY HISTORY: Mother and both parents with a history of congestive heart failure. ALLERGIES: To OMEPRAZOLE, TEMAZEPAM, ETODOLAC. MEDICATIONS: Include the patient is currently on Tylenol, Ventolin, DuoNeb, aspirin, Lipitor, Pulmicort, Plavix, Pepcid, Lasix, NovoLog, Levemir, Nizoral, Melatonin, Solu-Medrol, and Zosyn. PHYSICAL EXAMINATION: Blood pressure is 132/61 with a pulse of 89, temperature 98, his is 91% on trach collar. General description is an elderly male, up in the bed in no distress. No tachypnea or accessory muscle for respiration use. HEENT: Examination shows slight pallor. No scleral icterus. Oral mucosa is dry. No pharyngeal erythema or thrush. NECK: Trachea currently is clear. LUNGS Unlabored breathing, decreased breath sounds at the bases, no wheeze. HEART: S1, S2. Regular rate and rhythm.. ABDOMEN: Soft, no tenderness. No guarding or rigidity. EXTREMITIES: Some trace edema of the feet. SKIN: Examination, no rash or mass palpable. NEUROLOGICAL: Patient is awake, alert, oriented. Mood and affect normal. LABS: Hemoglobin is 10.5, white count of 10,000. BUN of 35, creatinine 1.7, white count has been normal. Liver enzymes are normal. No culture this admission. Chest x-ray and CT report as mentioned above. DIAGNOSTIC IMPRESSION AND PLAN: Patient presented to the hospital with basically tingling and swelling in his leg and some shortness of breath. This patient did have a history of throat cancer status post laryngectomy and tracheostomy with abnormal CT/ Consult for possible combined atelectasis. This patient more likely not taking a deep breath to keep his lung expanded as the patient clinically not behaving as pneumonia. This patient with significant purulent sputum, no fever with mild elevated white count has subsequently normalized. PLAN: Patient has been started on incentive spirometry every hour on the hour while awake with low clinical suspicion for pneumonia. Antibiotic need to be discontinued or transition a short course of oral Augmentin on discharge. Family at the bedside. Their questions were answered. MMODL / IJN: [id number] /
[2019-07-12 09:34] LABS: Anisocytosis Slight; Basophils # (A) 0.1 k/uL (0-0.2); Basophils % (A) 1 %; Eosinophils # (A) 0.1 k/uL (0-0.7); Eosinophils % (A) 1 %; HCT 35.4 % (39.0-53.0); HGB 10.8 gm/dL (13.0-17.5); Hypochromasia Marked; Lymphocytes # (A) 0.4 k/uL (1.0-4.8); Lymphocytes % (A) 4 %; MCH 28.9 pg (25.0-35.0); MCHC 30.6 g/dL (31.0-37.0); MCV 94.6 fL (80.0-100.0); Mean Platelet Volume 8.8; Monocytes # (A) 0.6 k/uL (0-1.0); Monocytes % (A) 5 %; Neutrophils # (A) 10.5 k/uL (1.3-7.7); Neutrophils % (A) 88 %; Platelet Count 137 k/uL (150-450); Poikilocytosis Slight; RBC 3.75 m/uL (4.30-5.90); RDW 16.6 % (11.5-15.5); WBC 11.9 k/uL (3.8-10.6)
[2019-07-12 09:56] LABS: Calcium 8.9 mg/dL (8.4-10.2); Potassium 4.8 mmol/L (3.5-5.1)
[2019-07-12 12:14] LABS: Glucose,Whole Blood 167 mg/dL (75-99)
[2019-07-12] MEDS: BRIMONIDINE TARTRATE 0.2% DROPS 5 ML BTL BOTH EYES SCH (12:55)
--- NOTE | 2019-07-12 12:55 | P.PN ---
Subjective Progress Note Date: 07/12/19 Principal diagnosis: Acute COPD exacerbation, chronic hypoxic restrictive failure related acute sensor exacerbation, bilateral pneumonia, elevated troponin, acute renal failure, hypertension hypertensive cardiovascular disease, hypothyroidism, type 2 diabetes mellitus, dyslipidemia 07/12/2019, patient seen eval examined during the rounds he is doing better with trach collar oxygen denies any chest pain or shortness of breath he's been on broad-spectrum antibiotics gently being rehydrated, his last chest x-ray revealed bilateral atelectasis, 69-year-old male was admitted for acute respiratory failure patient does have a tracheostomy because of his esophageal cancer in the past and the does have history of congestive heart failure chronic diastolic as a systolic dysfunction patient is presently requiring about 10 L of oxygen. Patient had a CAT scan of the chest which showed bilateral upper groundglass pasty is which is probably from congestive heart failure for which patient is on IV Lasix and patient has bilateral lower limb lobe infiltrates with air bronchogram on the right side patient on Zosyn. Objective - Vital Signs Vital signs: Vital Signs Temp 98.4 F 07/12/19 07:59 Pulse 80 07/12/19 12:01 Resp 20 07/12/19 07:59 BP 120/65 07/12/19 07:59 Pulse Ox 94 L 07/12/19 07:59 Intake & Output 07/11/19 07/12/19 07/12/19 18:59 06:59 18:59 Intake Total 360 Output Total 2900 4025 Balance -2540 -4025 Weight 105.9 kg Intake: Oral 360 Output: Urine 2900 4025 Uretheral (Friedman) 500 Other: Voiding Method Indwelling Catheter Indwelling Catheter Indwelling Catheter # Bowel Movements 0 - Exam GENERAL: The patient is alert and oriented x3, in mild acute distress. Well developed, well nourished. Vitals are stable. Temp is 98.4F, pulse is 91, resp are 20, BP is 134/61, and 02 is 91% on trach collar at 35%. HEENT: Pupils are round and equally reacting to light. EOMI. No scleral icterus. No conjunctival pallor. Normocephalic, atraumatic. No pharyngeal erythema. No thyromegaly. NECK: Active open stoma of the trachea noted with trach collar noted as well CARDIOVASCULAR: S1 and S2 present. No murmurs, rubs, or gallops. PULMONARY: Rhonchus breath sounds ABDOMEN: Soft, nontender, nondistended, normoactive bowel sounds. No palpable organomegaly. MUSCULOSKELETAL: No joint swelling or deformity. EXTREMITIES: No cyanosis, clubbing, or pedal edema. NEUROLOGICAL: Gross neurological examination did not reveal any focal deficits. SKIN: No rashes. - Labs CBC & Chem 7: 07/12/19 09:14 07/12/19 09:14 Labs: Abnormal Lab Results - Last 24 Hours (Table) 07/11/19 07/11/19 07/11/19 Range/Units 13:07 17:13 21:07 WBC (3.8-10.6) k/uL RBC (4.30-5.90) m/uL Hgb (13.0-17.5) gm/dL Hct (39.0-53.0) % MCHC (31.0-37.0) g/dL RDW (11.5-15.5) % Plt Count (150-450) k/uL Neutrophils # (1.3-7.7) k/uL Lymphocytes # (1.0-4.8) k/uL Chloride (98-107) mmol/L Carbon Dioxide (22-30) mmol/L BUN (9-20) mg/dL Creatinine (0.66-1.25) mg/dL Glucose (74-99) mg/dL POC Glucose (mg/dL) 163 H 189 H 126 H (75-99) mg/dL 07/12/19 07/12/19 07/12/19 Range/Units 03:32 07:21 09:14 WBC 11.9 H (3.8-10.6) k/uL RBC 3.75 L (4.30-5.90) m/uL Hgb 10.8 L (13.0-17.5) gm/dL Hct 35.4 L (39.0-53.0) % MCHC 30.6 L (31.0-37.0) g/dL RDW 16.6 H (11.5-15.5) % Plt Count 137 L (150-450) k/uL Neutrophils # 10.5 H (1.3-7.7) k/uL Lymphocytes # 0.4 L (1.0-4.8) k/uL Chloride (98-107) mmol/L Carbon Dioxide (22-30) mmol/L BUN (9-20) mg/dL Creatinine (0.66-1.25) mg/dL Glucose (74-99) mg/dL POC Glucose (mg/dL) 190 H 156 H (75-99) mg/dL 07/12/19 07/12/19 Range/Units 09:14 11:55 WBC (3.8-10.6) k/uL RBC (4.30-5.90) m/uL Hgb (13.0-17.5) gm/dL Hct (39.0-53.0) % MCHC (31.0-37.0) g/dL RDW (11.5-15.5) % Plt Count (150-450) k/uL Neutrophils # (1.3-7.7) k/uL Lymphocytes # (1.0-4.8) k/uL Chloride 96 L (98-107) mmol/L Carbon Dioxide 40 H (22-30) mmol/L BUN 43 H (9-20) mg/dL Creatinine 1.90 H (0.66-1.25) mg/dL Glucose 210 H (74-99) mg/dL POC Glucose (mg/dL) 167 H (75-99) mg/dL Assessment and Plan Assessment: Bilateral pneumonia Acute on chronic hypoxic and hypercapnic history failure Acute renal failure Esophageal cancer status post esophagectomy COPD exacerbation 2 diabetes mellitus Hyperglycemia Dyslipidemia Plan: Continue supplemental oxygen Reading treatments IV steroids Admitting gentle diuresis Sugar monitoring and control Time with Patient: Greater than 30
[2019-07-12] MEDS: BETAMETHASONE DIPROPIONATE 0.05% CREAM 15 GM TUBE TOPICAL SCH (12:57)
[2019-07-12] MEDS: FUROSEMIDE 40 MG TAB PO SCH (15:48)
--- NOTE | 2019-07-12 16:15 | P.PN ---
Subjective Progress Note Date: 07/12/19 Principal diagnosis: 69-year-old male was admitted for acute respiratory failure patient does have a tracheostomy because of his esophageal cancer in the past and the does have hist ory of congestive heart failure chronic diastolic as a systolic dysfunction patient is presently requiring about 10 L of oxygen. Patient had a CAT scan of the chest which showed bilateral upper groundglass pasty is which is probably from congestive heart failure for which patient is on IV Lasix and patient has bilateral lower limb lobe infiltrates with air bronchogram on the right side patient will be started on Zosyn. Patient has limited air entry into bilateral lung sparrow may benefit from inhaled steroids or systemic steroids early with addition to pulmonology who was consult that. Patient appears to have alkalosis, I'll obtain an ABG to assess her pCO2 as patient can have contraction alkalosis as well because of IV Lasix. I cannot clearly assess JVD. Constitutional: Denied any fatigue denied any fever. Cardio vascular: denied any chest pain, palpitations Gastrointestinal denied any nausea vomiting Pulmonary: Denied any shortness of breath cough Neurologic denied any new focal deficits 07/11/2019 Patient is sitting up in bed in mild acute distress. Patient is having some diff iculty in breathing but states this hasn't worsened. Patient family member is at the bedside and was discussed with the patient that patient does not want to be ventilated and is unable to be placed on a Bipap due to having an active open stoma. Patient is currently receiving oxygen via a trach collar at 35%. Prednisone was tapered to 40mg IVP every eight hours. Will continue to monitor vital signs and labs closely. Patient denies any chest pain or palpitations. Patient denies any nausea or vomiting. Patient has been eating some but not much of an appetite. Patient is afebrile. Guarded prognosis. 07/12/2019 Patient is sitting up in a chair at the bedside in no acute distress. Patient is breathing much easier and in general overall looks much better today. Patient states that he feels better and denies any chest pain or palpitations at this time. Patient states that he is eating well and tolerating diet. Patient denies any nausea or vomiting. Patient is afebrile. Patient's creatinine today is slightly elevated and patient is being transitioned to oral Lasix and will obtain morning labs. Discussed with the patient about discharge plans and patient states that he will be going home and is not requiring any rehab at this time. Family is at the bedside. PT/OT are following. Objective - Vital Signs Vital signs: Vital Signs Temp 98.4 F 07/12/19 15:47 Pulse 84 07/12/19 15:57 Resp 16 07/12/19 15:47 BP 126/91 07/12/19 15:47 Pulse Ox 95 07/12/19 15:47 Intake & Output 07/11/19 07/12/19 07/12/19 18:59 06:59 18:59 Intake Total 360 Output Total 2900 4025 Balance -2540 -4025 Weight 105.9 kg Intake: Oral 360 Output: Urine 2900 4025 Uretheral (Friedman) 500 Other: Voiding Method Indwelling Catheter Indwelling Catheter Indwelling Catheter # Bowel Movements 0 - Exam PHYSICAL EXAMINATION: GENERAL: The patient is alert and oriented x3, in no acute distress. Well developed, well nourished. Vitals are stable. Temp is 98.4F, pulse is 90, resp are 20, BP is 120/65, and 02 is 94% on trach collar at 35%. HEENT: Pupils are round and equally reacting to light. EOMI. No scleral icterus. No conjunctival pallor. Normocephalic, atraumatic. No pharyngeal erythema. No thyromegaly. NECK: Active open stoma of the trachea noted with trach collar noted as well CARDIOVASCULAR: S1 and S2 present. No murmurs, rubs, or gallops. PULMONARY: Rhonchus breath sounds ABDOMEN: Soft, nontender, nondistended, normoactive bowel sounds. No palpable organomegaly. MUSCULOSKELETAL: No joint swelling or deformity. EXTREMITIES: No cyanosis, clubbing, or pedal edema. NEUROLOGICAL: Gross neurological examination did not reveal any focal deficits. SKIN: No rashes. - Labs CBC & Chem 7: 07/12/19 09:14 07/12/19 09:14 Labs: Abnormal Lab Results - Last 24 Hours (Table) 07/11/19 07/11/19 07/12/19 Range/Units 17:13 21:07 03:32 WBC (3.8-10.6) k/uL RBC (4.30-5.90) m/uL Hgb (13.0-17.5) gm/dL Hct (39.0-53.0) % MCHC (31.0-37.0) g/dL RDW (11.5-15.5) % Plt Count (150-450) k/uL Neutrophils # (1.3-7.7) k/uL Lymphocytes # (1.0-4.8) k/uL Chloride (98-107) mmol/L Carbon Dioxide (22-30) mmol/L BUN (9-20) mg/dL Creatinine (0.66-1.25) mg/dL Glucose (74-99) mg/dL POC Glucose (mg/dL) 189 H 126 H 190 H (75-99) mg/dL 07/12/19 07/12/19 07/12/19 Range/Units 07:21 09:14 09:14 WBC 11.9 H (3.8-10.6) k/uL RBC 3.75 L (4.30-5.90) m/uL Hgb 10.8 L (13.0-17.5) gm/dL Hct 35.4 L (39.0-53.0) % MCHC 30.6 L (31.0-37.0) g/dL RDW 16.6 H (11.5-15.5) % Plt Count 137 L (150-450) k/uL Neutrophils # 10.5 H (1.3-7.7) k/uL Lymphocytes # 0.4 L (1.0-4.8) k/uL Chloride 96 L (98-107) mmol/L Carbon Dioxide 40 H (22-30) mmol/L BUN 43 H (9-20) mg/dL Creatinine 1.90 H (0.66-1.25) mg/dL Glucose 210 H (74-99) mg/dL POC Glucose (mg/dL) 156 H (75-99) mg/dL 07/12/19 Range/Units 11:55 WBC (3.8-10.6) k/uL RBC (4.30-5.90) m/uL Hgb (13.0-17.5) gm/dL Hct (39.0-53.0) % MCHC (31.0-37.0) g/dL RDW (11.5-15.5) % Plt Count (150-450) k/uL Neutrophils # (1.3-7.7) k/uL Lymphocytes # (1.0-4.8) k/uL Chloride (98-107) mmol/L Carbon Dioxide (22-30) mmol/L BUN (9-20) mg/dL Creatinine (0.66-1.25) mg/dL Glucose (74-99) mg/dL POC Glucose (mg/dL) 167 H (75-99) mg/dL Assessment and Plan Assessment: Acute the respiratory failure mostly hypoxic and acue renal failure exacerbation that may be a component of COPD contributing to that will obtain ABG. ABG shows a bicarb undetectable over 50 and a PC02 of 120. pulmonary was consulted, pat ient appears to have bilateral pneumonia predominant right lower lobe pneumonia for which patient will be started on Zosyn. -Elevated troponin secondary to congestive heart failure and possible sepsis and acute renal failure -Acute renal failure prerenal azotemia baseline creatinine around 0.9. Current creatinine is 1.90 ARF Is believed to be secondary to heart failure which is again chronic systolic as well as diastolic dysfunction which is expected to improve with IV Lasix. Patient is being transitioned to oral Lasix 40 mg twice daily. Will continue to monitor. -Hypertension -Hypothyroidism -Type 2 diabetes mellitus continue with present regimen fairly controlled blood sugars with the present regimen -hyperlipidemia -COPD with possible acute exacerbation continue with inhaled nebulizations, IV systemic steroids. May transition to oral steroids in the morning.
[2019-07-12 17:14] LABS: Glucose,Whole Blood 113 mg/dL (75-99)
--- NOTE | 2019-07-12 18:43 | PN ---
PROGRESS NOTE DATE OF SERVICE: 07/12/2019 REASON FOR FOLLOWUP: Abnormal CT and a question of pneumonia. INTERVAL HISTORY: The patient is currently afebrile. The patient has been breathing comfortably today. The patient's cough has decreased in intensity and is less productive. No nausea, no vomiting, no abdominal pain or diarrhea. PHYSICAL EXAMINATION: Blood pressure 120/65, pulse of 90, temperature 98.4. He is 94% on trach collar. General description is an elderly male up in the chair in no distress. RESPIRATORY SYSTEM: Unlabored breathing with decreased intensity of breath sounds. No wheeze. HEART: S1, S2. Regular rate and rhythm. ABDOMEN: Soft. No tenderness. EXTREMITIES: Some trace edema of the feet. LABS: Hemoglobin is 10.8, white count 11.9, BUN of 43. Creatinine is slightly improved at 1.9. DIAGNOSTIC IMPRESSION AND PLAN: Patient admitted to hospital with bilateral lower extremity tingling and also has increasing shortness of breath. CT has been suggestive of multifocal pneumonia in this patient who did have significant fever white count with concern for possible atelectasis, underlying pneumonia not entirely excluded. The patient is mentioning overall improvement today on IV Zosyn which started yesterday; to continue. Try to obtain a sputum sample to narrow down antibiotics and continue with supportive care. MMODL / IJN: [id number] /
--- NOTE | 2019-07-12 20:25 | PN ---
PROGRESS NOTE This patient has been admitted with symptoms of shortness of breath. The patient is feeling better. Denies any significant cough or expectoration. Patient was seen in consultation by Dr. José. No significant pneumonia is suspected. Blood pressure is 120/65 mmHg. First and second heart sounds are heard. Lungs are fairly clear to auscultation and percussion. We will continue the patient on IV Lasix at present, and patient is being followed by Pulmonary. MMODL / IJN: [id number] /
[2019-07-12 21:55] LABS: Glucose,Whole Blood 303 mg/dL (75-99)
[2019-07-12] MEDS: PREGABALIN 75 MG CAP PO SCH (22:09)
[2019-07-12] MEDS: MELATONIN 5 MG TABLET PO SCH (22:09)
[2019-07-12] MEDS: INSULIN DETEMIR (LEVEMIR) 100 UNIT/ML SYR SQ SCH (22:10)
[2019-07-12] MEDS: ACETAMINOPHEN TAB 500 MG TAB PO PRN (22:11)
[2019-07-13 02:16] LABS: Glucose,Whole Blood 343 mg/dL (75-99)
[2019-07-13 06:01] LABS: Anisocytosis Slight; HCT 34.8 % (39.0-53.0); HGB 10.7 gm/dL (13.0-17.5); Hypochromasia Marked; MCH 28.8 pg (25.0-35.0); MCHC 30.9 g/dL (31.0-37.0); MCV 93.3 fL (80.0-100.0); Mean Platelet Volume 9.2; Platelet Count 151 k/uL (150-450); Poikilocytosis Slight; RBC 3.73 m/uL (4.30-5.90); RDW 16.7 % (11.5-15.5); WBC 12.2 k/uL (3.8-10.6)
[2019-07-13 06:10] LABS: Calcium 8.9 mg/dL (8.4-10.2); Potassium 4.9 mmol/L (3.5-5.1)
[2019-07-13 07:33] LABS: Glucose,Whole Blood 364 mg/dL (75-99)
[2019-07-13] MEDS: BUDESONIDE 0.5 MG/2 ML NEBU INHALATION SCH ×2 (07:39→20:48)
[2019-07-13] MEDS: IPRATROPIUM-ALBUTEROL 3 ML NEB INHALATION SCH ×4 (07:39→20:48)
[2019-07-13 07:50] LABS: Glucose,Whole Blood 214 mg/dL (75-99)
[2019-07-13] MEDS: LEVOTHYROXINE 112 MCG TAB PO SCH (07:58)
[2019-07-13] MEDS: INSULIN ASPART (NovoLOG) 100 UNIT/ML VIAL SQ SCH ×7 (07:58→22:03)
[2019-07-13] MEDS: BRIMONIDINE TARTRATE 0.2% DROPS 5 ML BTL BOTH EYES SCH (09:14)
[2019-07-13] MEDS: BETAMETHASONE DIPROPIONATE 0.05% CREAM 15 GM TUBE TOPICAL SCH (09:14)
[2019-07-13] MEDS: AMMONIUM LACTATE 12% LOTION 225 GM BTL TOPICAL SCH (09:34)
[2019-07-13] MEDS: KETOCONAZOLE 2% SHAMPOO 1 APPLIC/ML TOPICAL SCH (09:35)
[2019-07-13] MEDS: METOPROLOL TARTRATE 12.5 MG TAB PO SCH ×2 (09:36→21:55)
[2019-07-13] MEDS: SENNOSIDES 8.6 MG TAB PO SCH ×2 (09:37→21:56)
[2019-07-13] MEDS: PREGABALIN 50 MG CAP PO SCH ×2 (09:37→17:23)
[2019-07-13] MEDS: ATORVASTATIN 80 MG TAB PO SCH (09:37)
[2019-07-13] MEDS: ASPIRIN 81 MG PO SCH (09:37)
[2019-07-13] MEDS: CHOLECALCIFEROL 1,000 UNIT TAB PO SCH (09:38)
[2019-07-13] MEDS: FAMOTIDINE 20 MG TAB PO SCH (09:38)
[2019-07-13] MEDS: FUROSEMIDE 40 MG TAB PO SCH ×2 (09:38→17:03)
[2019-07-13] MEDS: CLOPIDOGREL 75 MG TAB PO SCH (09:38)
[2019-07-13] MEDS: HYDROPHILIC CREAM 180 GM TUBE TOPICAL SCH ×2 (09:39→21:55)
[2019-07-13] MEDS: methylPREDNISolone SOD SUCCI 40 MG/ML 1 ML VIAL IV SCH ×4 (09:39→21:57)
[2019-07-13] MEDS: FENOFIBRATE 160 MG TAB PO SCH (09:39)
[2019-07-13] MEDS: PIPERACILLIN-TAZOBACTAM 3.375 GM in SODIUM CHLORIDE 0.9% 100 ML IVPB SCH ×2 (09:39→17:24)
--- NOTE | 2019-07-13 11:14 | PN ---
PROGRESS NOTE Samm Geiger was seen again on 07/13/2019. He is sleepy, easily aroused and then he is awake and alert and appropriate. He has less asterixis. He is less short of breath. PHYSICAL EXAMINATION: On physical examination, his blood pressure is 125/60, respiratory rate of 16, pulse rate 74, temperature 97.5, O2 saturation on 35% FiO2 is 95%. HEENT reveals tracheostomy being present. Chest reveals decreased breath sounds. No prolonged expiration. No wheeze. Occasional basal crackle. Cardiovascular system reveals an S1, S2. Abdomen is soft. There is trace pedal edema. White count is 12.2, hemoglobin of 10.7, sodium 140, potassium 4.9, chloride 96, bicarb 37, BUN 46, creatinine 2.05. IMPRESSION AT THIS TIME: 1. Acute on chronic respiratory failure with CO2 retention for which we would recommend keeping the FiO2 to maintain an O2 saturation of 89% to 90%. 2. Acute interstitial pneumonia in part may be due to allergic versus infectious etiology. Follow recommendation of Infectious Disease and continue steroids with a slow taper. 3. Congestive heart failure in part due to cor pulmonale. 4. Obesity. 5. Previous laryngeal cancer, status post tracheostomy and laryngectomy. From a pulmonary standpoint, I agree with possible discharge planning tomorrow. Increase his activity level. He would be a candidate for pulmonary rehab as an outpatient, which we shall try to arrange. Depending on how he does, we should make further changes to his care. I would like to thank you for allowing the privilege of participating in his care. MMODL / BUFFYN: [id number] /
[2019-07-13 12:37] LABS: Glucose,Whole Blood 151 mg/dL (75-99)
[2019-07-13] MEDS: ACETAMINOPHEN TAB 500 MG TAB PO PRN (12:48)
[2019-07-13] MEDS: TERBINAFINE 1% CREAM 15 GM TUBE TOPICAL SCH (12:53)
--- NOTE | 2019-07-13 13:37 | XR ---
EXAMINATION TYPE: XR chest 2V DATE OF EXAM: 07/13/2019 COMPARISON: Prior chest x-ray 07/11/2019 HISTORY: Shortness of breath TECHNIQUE: Frontal and lateral views of the chest are obtained. FINDINGS: Some ill-defined increased density is present in the left upper lobe which may represent s carring similar to prior exam. There is overlying artifact and cardiac leads. No evident pneumothorax or pleural effusion. Prominent lung volumes are again seen. Heart size is likely stable. Aorta appea rs dense. There is some improvement in aeration as compared to prior exam. Patient is rotated. There is flattening of hemidiaphragms. IMPRESSION: Improvement in aeration. Emphysema. Cardiomegaly.
--- NOTE | 2019-07-13 14:34 | CDI ---
Documentation Clarification Form Date: 07/13/2019 1:50:47 PM From: My Mack RN, CCDS Admit Date: 07/08/2019 9:20:00 PM Patient Name: Samm Geiger Visit Number: [id number] Discharge Date: ATTENTION: The Clinical Documentation Specialists (CDI) and [facility] Coding Staff appreciate your assistance in clarifying documentation. Please respond to the clarification below the line at the bottom and electronically sign. The CDI & [facility] Coding staff will review the response and follow-up if needed. Please note: Queries are made part of the Legal Health Record. If you have any questions, please contact the author of this message via ITS. Dr. Lyly Fierro The patient presented with shortness of breath, not making much urine, numbness in all 4 extremities. 07/11/19 and subsequent progress notes, possible sepsis is documented and further clarification is needed. History/Risk Factors: Throat Cancer, Heart Failure, COPD, Pneumonia, Clinical Indicators: 69-year-old male present with acute respiratory failure and per ongoing documentation starting on 07/11/19 patient appears to have bilateral pneumonia right lower lobe and was started on Zosyn. In your progress note elevated troponin secondary to congestive heart failure and possible sepsis is notes. WBC 11.9, 11.2 CO2 43, CR 1.72 Blood cultures: none Vitals signs on admission: 129/63 105 18 98.2 78 % RA Treatment: Monitor CBC, Zosyn IV ID Consult: 07/12/19 Ct has been suggestive of multifocal pneumonia. Underlying pneumonia not entirely excluded. In your professional opinion, please clarify if these findings signify one of the following conditions, whether the condition is POA, and cause, if known: Condition Sepsis ruled out Sepsis ruled in Other, please specify Unable to determine Present on Admission Yes No SIRS Criteria (2 or more of the following may indicate SIRS): -Temperature < 96.8F (36C) or > 101.0F (38.3C) -Heart Rate > 90 bpm -Respiratory Rate > 20 breaths/min or PaCO2 < 32 mmHg -White Blood Cell Count > 12,000 or < 4,000 cells/mm3 or > 10% bands -Lactate >2.0 mmol/L (>4.0 is equivalent to septic shock) (Last Revision: January 2018) MTDD
--- NOTE | 2019-07-13 15:16 | CDI ---
Documentation Clarification Form Date: 07/13/2019 2:36:09 PM From: My Mack RN, CCDS Admit Date: 07/08/2019 9:20:00 PM Patient Name: Samm Geiger Visit Number: [id number] Discharge Date: ATTENTION: The Clinical Documentation Specialists (CDI) and [facility] Coding Staff appreciate your assistance in clarifying documentation. Please respond to the clarification below the line at the bottom and electronically sign. The CDI & [facility] Coding staff will review the response and follow-up if needed. Please note: Queries are made part of the Legal Health Record. If you have any questions, please contact the author of this message via ITS. Dr. Lyly Fierro Conflicting documentation has been found in the medical record and clarification is needed. H/P Acute exacerbation of CHF ( type unspecified ECHO was pending) and subsequent progress notes heart failure which is again chronic systolic as well as diastolic dysfunction. History/Risk Factors: Throat cancer, Tracheostomy in place, COPD, Pneumonia, Diabetes mellitus, Chronic CHF Diastolic dysfunction Clinical Indicators: 69-year-old male who present with shortness of breath acute respiratory failure. Lungs reveal coarse rales throughout. ECHO: Overall left ventricular systolic function is mildly impaired with, an EF between 45-50% BNP: 8830 CXR: 07/08/19 Mild pulmonary fibrosis. No acute lung. No heart failure CT Chest: Airspace consolidation at the lung base which may reflect pneumonia and/or aspiration. Upper lobe groundglass infiltrates may reflect ac inflammatory process. Small bilateral pleural effusions. 07/09/19 Cardiology: Elevated BNP, possible mild CHF Treatment: Lasix IV 12 hrs (per orders) Monitor daily weights, strict I/O renal function and electrolytes Maintain low salt and fluid restricted diet In your opinion, what is the most clinically appropriate diagnosis for this patient? Acute exacerbation of chronic systolic and diastolic CHF Chronic systolic and diastolic CHF Other explanation of clinical findings Unable to determine (no explanation for clinical findings) (Last Revision: January 2018) MTDD
--- NOTE | 2019-07-13 15:27 | P.PN ---
Subjective Progress Note Date: 07/13/19 Principal diagnosis: 69-year-old male was admitted for acute respiratory failure patient does have a tracheostomy because of his esophageal cancer in the past and the does have hist ory of congestive heart failure chronic diastolic as a systolic dysfunction patient is presently requiring about 10 L of oxygen. Patient had a CAT scan of the chest which showed bilateral upper groundglass pasty is which is probably from congestive heart failure for which patient is on IV Lasix and patient has bilateral lower limb lobe infiltrates with air bronchogram on the right side patient will be started on Zosyn. Patient has limited air entry into bilateral lung sparrow may benefit from inhaled steroids or systemic steroids early with addition to pulmonology who was consult that. Patient appears to have alkalosis, I'll obtain an ABG to assess her pCO2 as patient can have contraction alkalosis as well because of IV Lasix. I cannot clearly assess JVD. Constitutional: Denied any fatigue denied any fever. Cardio vascular: denied any chest pain, palpitations Gastrointestinal denied any nausea vomiting Pulmonary: Denied any shortness of breath cough Neurologic denied any new focal deficits 07/11/2019 Patient is sitting up in bed in mild acute distress. Patient is having some diff iculty in breathing but states this hasn't worsened. Patient family member is at the bedside and was discussed with the patient that patient does not want to be ventilated and is unable to be placed on a Bipap due to having an active open stoma. Patient is currently receiving oxygen via a trach collar at 35%. Prednisone was tapered to 40mg IVP every eight hours. Will continue to monitor vital signs and labs closely. Patient denies any chest pain or palpitations. Patient denies any nausea or vomiting. Patient has been eating some but not much of an appetite. Patient is afebrile. Guarded prognosis. 07/12/2019 Patient is sitting up in a chair at the bedside in no acute distress. Patient is breathing much easier and in general overall looks much better today. Patient states that he feels better and denies any chest pain or palpitations at this time. Patient states that he is eating well and tolerating diet. Patient denies any nausea or vomiting. Patient is afebrile. Patient's creatinine today is slightly elevated and patient is being transitioned to oral Lasix and will obtain morning labs. Discussed with the patient about discharge plans and patient states that he will be going home and is not requiring any rehab at this time. Family is at the bedside. PT/OT are following. 07/13/2019 Patient is sitting up in bed in no acute distress. Patient states that his breathing continues to improve. Patient denies any chest pains or palpitations at this time and is tolerating diet with no reports of nausea or vomiting. Patient is afebrile. Patient's creatinine remains elevated and is currently 2.05 today. Will hold Lasix for today with repeat labs in the morning. IV st eroids have been decreased to 40 mg twice daily. Spoke with the nursing staff this morning and stress to them that we would like to decrease current oxygen demand of 8 L. Will continue to monitor vital signs closely. Indwelling Friedman catheter was removed today and will continue to monitor intake and output. Patient was retaining urine 2 nights ago as to the reason why he had a Friedman catheter placed. Discussed with the patient if he is continuing to retain he may need a Friedman catheter again and follow-up with urology in the outpatient setting. Patient would like to go home and is refusing rehab at this time. Objective - Vital Signs Vital signs: Vital Signs Temp 97.5 F L 07/13/19 08:37 Pulse 78 07/13/19 12:57 Resp 16 07/13/19 12:57 BP 128/57 07/13/19 12:57 Pulse Ox 95 07/13/19 08:37 Intake & Output 07/12/19 07/13/19 07/13/19 18:59 06:59 18:59 Intake Total 460 360 480 Output Total 4350 1800 1000 Balance -7430 -5180 -520 Weight 104.9 kg Intake: Intake, IV Titration 100 Amount Piperacillin-Tazobactam 3 100 .375 gm In Sodium Chloride 0.9% 100 ml @ 25 mls/hr IVPB Q8HR [facility] Rx# :[id number] Oral 360 360 480 Output: Urine 4350 1800 1000 Uretheral (Friedman) 3000 1000 Other: Voiding Method Indwelling Catheter Indwelling Catheter Indwelling Catheter - Exam PHYSICAL EXAMINATION: GENERAL: The patient is alert and oriented x3, in no acute distress. Well developed, well nourished. Vitals are stable. Temp is 98.7F, pulse is 84, resp are 16, BP is 125/60, and 02 is 95% on trach collar at 35% FiO2 with 8 L of oxygen HEENT: Pupils are round and equally reacting to light. EOMI. No scleral icterus. No conjunctival pallor. Normocephalic, atraumatic. No pharyngeal erythema. No thyromegaly. NECK: Active open stoma of the trachea noted with trach collar noted as well CARDIOVASCULAR: S1 and S2 present. No murmurs, rubs, or gallops. PULMONARY: Rhonchus breath sounds ABDOMEN: Soft, nontender, nondistended, normoactive bowel sounds. No palpable organomegaly. MUSCULOSKELETAL: No joint swelling or deformity. EXTREMITIES: No cyanosis, clubbing, or pedal edema. NEUROLOGICAL: Gross neurological examination did not reveal any focal deficits. SKIN: No rashes. - Labs CBC & Chem 7: 07/13/19 05:30 07/13/19 05:30 Labs: Abnormal Lab Results - Last 24 Hours (Table) 07/12/19 07/12/19 07/13/19 Range/Units 16:43 21:54 02:15 WBC (3.8-10.6) k/uL RBC (4.30-5.90) m/uL Hgb (13.0-17.5) gm/dL Hct (39.0-53.0) % MCHC (31.0-37.0) g/dL RDW (11.5-15.5) % Chloride (98-107) mmol/L Carbon Dioxide (22-30) mmol/L BUN (9-20) mg/dL Creatinine (0.66-1.25) mg/dL Glucose (74-99) mg/dL POC Glucose (mg/dL) 113 H 303 H 343 H (75-99) mg/dL 07/13/19 07/13/19 07/13/19 Range/Units 05:30 05:30 07:31 WBC 12.2 H (3.8-10.6) k/uL RBC 3.73 L (4.30-5.90) m/uL Hgb 10.7 L (13.0-17.5) gm/dL Hct 34.8 L (39.0-53.0) % MCHC 30.9 L (31.0-37.0) g/dL RDW 16.7 H (11.5-15.5) % Chloride 96 L (98-107) mmol/L Carbon Dioxide 37 H (22-30) mmol/L BUN 46 H (9-20) mg/dL Creatinine 2.05 H (0.66-1.25) mg/dL Glucose 160 H (74-99) mg/dL POC Glucose (mg/dL) 364 H (75-99) mg/dL 07/13/19 07/13/19 Range/Units 07:48 12:27 WBC (3.8-10.6) k/uL RBC (4.30-5.90) m/uL Hgb (13.0-17.5) gm/dL Hct (39.0-53.0) % MCHC (31.0-37.0) g/dL RDW (11.5-15.5) % Chloride (98-107) mmol/L Carbon Dioxide (22-30) mmol/L BUN (9-20) mg/dL Creatinine (0.66-1.25) mg/dL Glucose (74-99) mg/dL POC Glucose (mg/dL) 214 H 151 H (75-99) mg/dL Assessment and Plan Assessment: Acute the respiratory failure mostly hypoxic and acue renal failure exacerbation that may be a component of COPD contributing to that will obtain ABG. ABG showed a bicarb undetectable over 50 and a PC02 of 120. pulmonary was consulted, patient appears to have bilateral pneumonia predominant right lower lobe pneumonia for which patient will be started on Zosyn. -Elevated troponin secondary to congestive heart failure and possible sepsis and acute renal failure -Acute renal failure prerenal azotemia baseline creatinine around 0.9. Current creatinine is 2.05. Will hold Lasix and reassess morning labs ARF Is believed to be secondary to heart failure which is again chronic systolic as well as diastolic dysfunction which is expected to improve with IV Lasix. Patient is being transitioned to oral Lasix 40 mg twice daily. Will continue to monitor. Lasix is being held at this time and may possibly resume tomorrow -Hypertension -Hypothyroidism -Type 2 diabetes mellitus continue with present regimen fairly controlled blood sugars -hyperlipidemia -COPD with possible acute exacerbation continue with inhaled nebulizations, IV systemic steroids. IV steroids have been decreased to 40 mg twice daily.
[2019-07-13 17:40] LABS: Glucose,Whole Blood 170 mg/dL (75-99)
--- NOTE | 2019-07-13 19:53 | PN ---
PROGRESS NOTE DATE OF SERVICE: 07/13/2019. REASON FOR FOLLOWUP: Possible pneumonia. INTERVAL HISTORY: The patient is currently afebrile. The patient has been breathing comfortably. The patient denies having any chest pain or shortness of breath. He did have some cough but was not bringing up any sputum. No nausea, vomiting. No abdominal pain. No diarrhea. PHYSICAL EXAMINATION: Blood pressure 125/60 with a pulse of 74, temperature 97.5. He is 95% on trach collar. General description is an elderly male up in the bed in no distress. RESPIRATORY SYSTEM: Unlabored breathing with decreased breath sounds at the base. No wheeze. HEART: S1, S2. Regular rate and rhythm. ABDOMEN: Soft. No tenderness. LABS: Large jump in the creatinine to 2.05. White count up to 12.2. DIAGNOSTIC IMPRESSION AND PLAN: Patient with an abnormal CT with concern for multifocal pneumonia. Overall, chest x- ray did show improvement. Currently on Zosyn. Will monitor his clinical course closely. Continue with supportive care. MMODL / IJN: [id number] /
[2019-07-13 21:01] LABS: Glucose,Whole Blood 209 mg/dL (75-99)
[2019-07-13] MEDS: PREGABALIN 75 MG CAP PO SCH (21:54)
[2019-07-13] MEDS: MELATONIN 5 MG TABLET PO SCH (21:55)
[2019-07-13 21:56] LABS: Glucose,Whole Blood 237 mg/dL (75-99)
[2019-07-13] MEDS: INSULIN DETEMIR (LEVEMIR) 100 UNIT/ML SYR SQ SCH (22:03)
[2019-07-14] MEDS: PIPERACILLIN-TAZOBACTAM 3.375 GM in SODIUM CHLORIDE 0.9% 100 ML IVPB SCH ×2 (00:35→08:50)
[2019-07-14] MEDS: methylPREDNISolone SOD SUCCI 40 MG/ML 1 ML VIAL IV SCH ×3 (00:35→12:01)
[2019-07-14] MEDS: ACETAMINOPHEN TAB 500 MG TAB PO PRN ×2 (00:37→08:53)
[2019-07-14] MEDS: TERBINAFINE 1% CREAM 15 GM TUBE TOPICAL SCH ×2 (05:12→08:59)
[2019-07-14 05:19] VITALS: RESP 18
[2019-07-14 06:19] LABS: Anisocytosis Slight; HCT 37.2 % (39.0-53.0); HGB 11.2 gm/dL (13.0-17.5); Hypochromasia Marked; MCH 28.1 pg (25.0-35.0); MCHC 30.1 g/dL (31.0-37.0); MCV 93.5 fL (80.0-100.0); Mean Platelet Volume 9.4; Platelet Count 164 k/uL (150-450); Poikilocytosis Slight; RBC 3.98 m/uL (4.30-5.90); RDW 16.9 % (11.5-15.5); WBC 10.9 k/uL (3.8-10.6)
[2019-07-14 06:28] LABS: Calcium 8.8 mg/dL (8.4-10.2); Potassium 4.9 mmol/L (3.5-5.1)
[2019-07-14 07:27] LABS: Glucose,Whole Blood 176 mg/dL (75-99)
[2019-07-14] MEDS: INSULIN ASPART (NovoLOG) 100 UNIT/ML VIAL SQ SCH ×4 (07:32→12:51)
[2019-07-14] MEDS: LEVOTHYROXINE 112 MCG TAB PO SCH (07:32)
[2019-07-14 07:53] VITALS: TEMP 97.7
[2019-07-14] MEDS: IPRATROPIUM-ALBUTEROL 3 ML NEB INHALATION SCH ×2 (08:29→11:41)
[2019-07-14] MEDS: BUDESONIDE 0.5 MG/2 ML NEBU INHALATION SCH (08:29)
[2019-07-14] MEDS: ASPIRIN 81 MG PO SCH (08:50)
[2019-07-14] MEDS: AMMONIUM LACTATE 12% LOTION 225 GM BTL TOPICAL SCH (08:50)
[2019-07-14] MEDS: BETAMETHASONE DIPROPIONATE 0.05% CREAM 15 GM TUBE TOPICAL SCH (08:51)
[2019-07-14] MEDS: BRIMONIDINE TARTRATE 0.2% DROPS 5 ML BTL BOTH EYES SCH (08:51)
[2019-07-14] MEDS: ATORVASTATIN 80 MG TAB PO SCH (08:51)
[2019-07-14] MEDS: FAMOTIDINE 20 MG TAB PO SCH (08:52)
[2019-07-14] MEDS: FENOFIBRATE 160 MG TAB PO SCH (08:52)
[2019-07-14] MEDS: CLOPIDOGREL 75 MG TAB PO SCH (08:52)
[2019-07-14] MEDS: CHOLECALCIFEROL 1,000 UNIT TAB PO SCH (08:52)
[2019-07-14] MEDS: PREGABALIN 50 MG CAP PO SCH (08:53)
[2019-07-14] MEDS: METOPROLOL TARTRATE 12.5 MG TAB PO SCH (08:53)
[2019-07-14] MEDS: SENNOSIDES 8.6 MG TAB PO SCH (08:53)
[2019-07-14] MEDS: HYDROPHILIC CREAM 180 GM TUBE TOPICAL SCH (08:53)
[2019-07-14] MEDS: KETOCONAZOLE 2% SHAMPOO 1 APPLIC/ML TOPICAL SCH (08:53)
[2019-07-14] MEDS: FUROSEMIDE 40 MG TAB PO SCH (08:53)
[2019-07-14 12:20] VITALS: BP 110/58; PULSE 79
[2019-07-14 12:30] LABS: Glucose,Whole Blood 158 mg/dL (75-99)
--- NOTE | 2019-07-14 13:51 | PN ---
PROGRESS NOTE He was seen again on 07/14/2019. He is less short of breath and is doing better overall. He is sitting by the side of the bed. His FiO2 is down to 28% with his oxygen saturation in the low 90s. PHYSICAL EXAMINATION: On physical examination, his respiratory rate is 18, pulse rate of 81, temperature 97.7, blood pressure 117/70. HEENT reveals tracheostomy with trach mask in place. Chest reveals decreased breath sounds at bases. Occasional rhonchi. Cardiovascular system reveals an S1, S2. Abdomen is soft. There is no edema. White count is 10.9, hemoglobin of 11.2, bicarbonate is 37, BUN 48, creatinine 1.89. ARIN and rheumatoid factor are negative. IMPRESSION AT THIS TIME: 1. Acute on chronic respiratory failure. 2. Ground-glass opacities bilaterally, which may be due to a non infectious process. 3. Possible aspiration type pneumonia. 4. Congestive heart failure. 5. Previous laryngeal cancer with tracheostomy and laryngectomy. Would taper his prednisone slowly. Would increase his activity level. Would have him see us as an outpatient and would strongly consider pulmonary rehab in him. Depending on how he does, we should make further changes to his care. I agree with possible discharge planning at this time. MMODL / IJN: [id number] /
[2019-07-14 14:55] VITALS: BMI 30.7
--- NOTE | 2019-07-14 14:57 | P.DS ---
Providers Date of admission: 07/08/19 21:20 Expected date of discharge: 07/14/19 Attending physician: Nazia Raza Consults: 07/08/19 21:20 Consult Physician Urgent Consulting Provider: [facility] Consult Reason/Comments: elevated trop Do you want consulting provider notified?: Yes, Notify in am 07/10/19 06:21 Consult Physician Routine Consulting Provider: Beto Reynoso Consult Reason/Comments: 02 saturation drop to 70's, c02 [id number] Do you want consulting provider notified?: Yes 07/10/19 19:02 Consult Physician Routine Consulting Provider: Rojas José Consult Reason/Comments: infection versus inflammation Do you want consulting provider notified?: Yes Primary care physician: [facility] Hospital Course: Final diagnosis Acute respiratory failure COPD with possible acute exacerbation Acute renal failure, prerenal azotemia Congestive heart failure, Acute on chronic systolic as well as diastolic dysfunction hypertension Hypothyroidism Diabetes mellitus type 2 Hyperlipidemia Elevated troponin secondary to congestive heart failure, possible sepsis and acute renal failure, present on admission Discharge disposition Patient is being discharged home in a stable condition with guarded prognosis. Patient will follow-up with pulmonary and cardiology in the outpatient setting as discussed. Patient will continue on oral Lasix as well as an extended prednisone taper per pulmonary recommendations. Patient will complete a short course of oral antibiotics in the form of Augmentin for 7 days per infectious disease recommendations. Total time taken is 35 minutes. History of present illness This is a 69-year-old male who was recently admitted with acute respiratory failure with a history of congestive heart failure and was being closely mon itored. Patient had a CAT scan done showing bilateral groundglass opacities which is most likely from congestive heart failure exacerbation. Patient was on IV antibiotics and infectious disease is following. Patient will continue a short course of oral antibiotics upon discharge. Patient will continue on a prednisone taper of 40 mg daily for 1 week, then 30 mg daily for 1 week, then 20 mg daily for 1 week, then 10 mg and follow-up with pulmonary in the outpatient setting. Patient will continue on oral Lasix 40 mg twice a day. Today patient is sitting up on the side of the bed just getting back from the bathroom in no acute distress with a steady gait and would like to go home today. Patient denies any chest pain or palpitations at this time. Patient states that his breathing has gotten much better. Patient denies any nausea or vomiting and has been tolerating diet. Patient had a Friedman catheter removed yesterday from urinary retention and is urinating with no difficulties. Patient is afebrile. Currently patient's condition is stable with much improvement and patient is ready for discharge. Guarded prognosis On exam, vital signs are stable. Temp is 97.7F, pulse is 79, respirations are 16, blood pressure is 110/58, oxygen saturation is 96% on 5 L via trach collar with an FiO2 of 28%. Cardio S1 and S2 are heard. Respiratory system shows diminished breath sounds at the bases with bibasilar rhonchi noted. Abdomen is soft and nontender. Nervous system shows no focal deficits with mild diffuse weakness. Please refer to medication reconciliation sheet for a list of medications. Patient Condition at Discharge: Serious Plan - Discharge Summary Discharge Rx Participant: No New Discharge Prescriptions: New Amoxicillin/Potassium Clav [Augmentin 875-125 Tablet] 1 tab PO Q12HR 7 Days #14 tab Ipratropium-Albuterol Nebulize [Duoneb 0.5 mg-3 mg/3 ml Soln] 3 ml INHALATION RT-QID 30 Days ampul.neb Furosemide [Lasix] 40 mg PO BID@0900,1600 30 Days #60 tab Metoprolol Tartrate [Lopressor] 12.5 mg PO BID 30 Days #60 tab predniSONE 10 mg PO DIRECTED #66 tab Budesonide [Pulmicort] 0.5 mg INHALATION RT-BID 30 Days #1 nebu Continue Pantoprazole Sodium [Protonix] 40 mg PO BID Cholecalciferol [Vitamin D3 (25 Mcg = 1000 Iu)] 2,000 unit PO DAILY Aspirin [Adult Low Dose Aspirin EC] 81 mg PO DAILY Olodaterol HCl [Striverdi Respimat] 2 puff INHALATION RT-DAILY Ascorbic Acid [Vitamin C] 500 mg PO DAILY Sennosides [Senna] 8.6 mg PO BID Clopidogrel [Plavix] 75 mg PO DAILY Brimonidine Tartrate [Alphagan P 0.1% Ophth Soln] 1 drops BOTH EYES DAILY Acetaminophen [Tylenol Extra Strength] 1,000 mg PO TID PRN PRN Reason: Pain Ranitidine HCl 300 mg PO BID Pregabalin [Lyrica] 50 mg PO BID Levothyroxine Sodium 112 mcg PO DAILY Atorvastatin [Lipitor] 80 mg PO DAILY Albuterol Inhaler [Ventolin Hfa Inhaler] 2 puff INHALATION RT-QID PRN PRN Reason: Shortness Of Breath Albuterol Nebulized [Ventolin Nebulized] 1.25 mg INHALATION RT-Q4H PRN PRN Reason: Shortness Of Breath Insulin Glargine,Hum.rec.anlog [Basaglar Kwikpen U-100] 28 unit SQ HS Insulin Aspart [NovoLOG Flexpen] 8 units SQ AC-TID Fenofibrate 160 mg PO DAILY Melatonin 10 mg PO HS Hydrophilic Cream [Triad Cream] 1 applic TOPICAL BID Terbinafine 1% Cream [LamISIL] 1 applic TOPICAL BID Ketoconazole 2% Shampoo [Nizoral] 1 applic TOPICAL DAILY Betamethasone Valerate [Luxiq 0.01%] 1 applic TOPICAL DAILY Ammonium Lactate Lotion [Lac-Hydrin 12% Lotion] 1 applic TOPICAL DAILY Pregabalin [Lyrica] 150 mg PO HS rOPINIRole HCL [Requip] 0.5 - 1 mg PO HS Discontinued Furosemide [Lasix] 40 mg PO DAILY Furosemide [Lasix] 20 mg PO HS Discharge Medication List Aspirin [Adult Low Dose Aspirin EC] 81 mg PO DAILY 10/28/16 [History] Cholecalciferol [Vitamin D3 (25 Mcg = 1000 Iu)] 2,000 unit PO DAILY 10/28/16 [History] Pantoprazole Sodium [Protonix] 40 mg PO BID 10/28/16 [History] Acetaminophen [Tylenol Extra Strength] 1,000 mg PO TID PRN 12/27/18 [History] Albuterol Inhaler [Ventolin Hfa Inhaler] 2 puff INHALATION RT-QID PRN 12/27/18 [History] Albuterol Nebulized [Ventolin Nebulized] 1.25 mg INHALATION RT-Q4H PRN 12/27/18 [History] Ascorbic Acid [Vitamin C] 500 mg PO DAILY 12/27/18 [History] Atorvastatin [Lipitor] 80 mg PO DAILY 12/27/18 [History] Brimonidine Tartrate [Alphagan P 0.1% Ophth Soln] 1 drops BOTH EYES DAILY 12/03 04/19 [History] Clopidogrel [Plavix] 75 mg PO DAILY 12/27/18 [History] Levothyroxine Sodium 112 mcg PO DAILY 12/27/18 [History] Olodaterol HCl [Striverdi Respimat] 2 puff INHALATION RT-DAILY 12/27/18 [ History] Pregabalin [Lyrica] 50 mg PO BID 12/27/18 [History] Ranitidine HCl 300 mg PO BID 12/27/18 [History] Sennosides [Senna] 8.6 mg PO BID 12/27/18 [History] Ammonium Lactate Lotion [Lac-Hydrin 12% Lotion] 1 applic TOPICAL DAILY 07/08/19 [History] Betamethasone Valerate [Luxiq 0.01%] 1 applic TOPICAL DAILY 07/08/19 [History] Fenofibrate 160 mg PO DAILY 07/08/19 [History] Hydrophilic Cream [Triad Cream] 1 applic TOPICAL BID 07/08/19 [History] Insulin Aspart [NovoLOG Flexpen] 8 units SQ AC-TID 07/08/19 [History] Insulin Glargine,Hum.rec.anlog [Basaglar Kwikpen U-100] 28 unit SQ HS 07/08/19 [History] Ketoconazole 2% Shampoo [Nizoral] 1 applic TOPICAL DAILY 07/08/19 [History] Melatonin 10 mg PO HS 07/08/19 [History] Pregabalin [Lyrica] 150 mg PO HS 07/08/19 [History] Terbinafine 1% Cream [LamISIL] 1 applic TOPICAL BID 07/08/19 [History] rOPINIRole HCL [Requip] 0.5 - 1 mg PO HS 07/08/19 [History] Amoxicillin/Potassium Clav [Augmentin 875-125 Tablet] 1 tab PO Q12HR 7 Days #14 tab 07/14/19 [Rx] Budesonide [Pulmicort] 0.5 mg INHALATION RT-BID 30 Days #1 nebu 07/14/19 [Rx] Furosemide [Lasix] 40 mg PO BID@0900,1600 30 Days #60 tab 07/14/19 [Rx] Ipratropium-Albuterol Nebulize [Duoneb 0.5 mg-3 mg/3 ml Soln] 3 ml INHALATION RT-QID 30 Days ampul.neb 07/14/19 [Rx] Metoprolol Tartrate [Lopressor] 12.5 mg PO BID 30 Days #60 tab 09/13/19 [Rx] predniSONE 10 mg PO DIRECTED #66 tab 07/14/19 [Rx] Follow up Appointment(s)/Referral(s): Beto Reynoso MD [STAFF PHYSICIAN] - 07/21/19 1:45 pm Marin Hussein MD [STAFF PHYSICIAN] - 1 Week (Office will call with follow up appointment. ) [facility] [Primary Care Provider] - 08/03/19 8:00 am (With Chantel MARTINEZ) Ambulatory/Diagnostic Orders: Basic Metabolic Panel [LAB.AMB] Time Frame: 3 Days, Location: None Selected Patient Instructions/Handouts: Heart Failure (DC), Urinary Retention in Men (ED), Chronic Lung Disease and Infection Prevention (DC) Activity/Diet/Wound Care/Special Instructions: pt will need [employer] funds for new meds and [phone] Activity Limited until follow-up Follow-up with primary care provider in one week. Follow-up with cardiology and pulmonary as scheduled Continue current diet Complete the course of antibiotics for 7 days Repeat labs in 2-3 days Discharge Disposition: HOME SELF-CARE
--- NOTE | 2019-07-14 16:41 | PN ---
PROGRESS NOTE DATE OF SERVICE: 07/14/2019 REASON FOR FOLLOWUP: Possible pneumonia. INTERVAL HISTORY: The patient is currently afebrile. The patient has been feeling better, breathing comfortably. Denies having any chest pain. Minimal cough. No nausea, no vomiting, no abdominal pain and no diarrhea. PHYSICAL EXAMINATION: Blood pressure 110/58 with a pulse of 79, temperature of 98. He is 96% on trach collar. General description is an elderly male up in the chair in no distress. RESPIRATORY SYSTEM: Unlabored breathing with decreased breath sounds at the base. No wheeze. HEART: S1, S2. Regular rate and rhythm. ABDOMEN: Soft. No tenderness. LABS: Hemoglobin is 11.2, white count 10.9, BUN of 48, creatinine 1.89. DIAGNOSTIC IMPRESSION AND PLAN: Patient admitted to hospital with difficulty in breathing. CT pneumonia. The patient clinically responded to Zosyn. Antibiotic will be switched over to a short course of oral Augmentin and close outpatient followup. MMODL / IJN: [id number] /
[2019-07-18 01:52] LABS: Alternaria Alternata IgG 5.1 mcg/mL (< 13.6); Aspergillus fumigatus IgG Not detected (Not detected); Aureobasidium pullulans IgG 5.1 mcg/mL (< 13.6); Phoma ssp. IgG 8.8 mcg/mL (< 6.6); Saccaharomospora viridis Not detected (Not detected); Saccaharopoly. rectivirgula Not detected (Not detected)
== END 2019-07-14 16:18 | disposition home health service (06) | DRG 871 ==
LOC: EC 18:54 → 3SCARD 21:20
PROVIDERS: ADMIT Hospitalist; ATTEND Hospitalist
DX: A41.9 Sepsis, unspecified organism (principal); I50.43 Acute on chronic combined systolic (congestive) and diastolic (congestive) heart failure; J18.1 Lobar pneumonia, unspecified organism; J96.21 Acute and chronic respiratory failure with hypoxia; J96.22 Acute and chronic respiratory failure with hypercapnia; I13.0 Hypertensive heart and chronic kidney disease with heart failure and stage 1 through stage 4 chronic kidney disease, or unspecified chronic kidney disease; E87.2 Acidosis; J44.0 Chronic obstructive pulmonary disease with (acute) lower respiratory infection; J44.1 Chronic obstructive pulmonary disease with (acute) exacerbation; N17.9 Acute kidney failure, unspecified; E03.9 Hypothyroidism, unspecified; E11.22 Type 2 diabetes mellitus with diabetic chronic kidney disease; E11.65 Type 2 diabetes mellitus with hyperglycemia; E66.9 Obesity, unspecified; Z68.30 Body mass index [BMI] 30.0-30.9, adult; E78.5 Hyperlipidemia, unspecified; E86.0 Dehydration; G47.33 Obstructive sleep apnea (adult) (pediatric); I25.2 Old myocardial infarction; I27.29 Other secondary pulmonary hypertension; J84.10 Pulmonary fibrosis, unspecified; K21.9 Gastro-esophageal reflux disease without esophagitis; N18.9 Chronic kidney disease, unspecified; Z66 Do not resuscitate; Z79.02 Long term (current) use of antithrombotics/antiplatelets; Z79.4 Long term (current) use of insulin; Z79.82 Long term (current) use of aspirin; Z79.890 Hormone replacement therapy; Z79.899 Other long term (current) drug therapy; Z82.49 Family history of ischemic heart disease and other diseases of the circulatory system; Z85.01 Personal history of malignant neoplasm of esophagus; Z85.21 Personal history of malignant neoplasm of larynx; Z87.891 Personal history of nicotine dependence; Z90.02 Acquired absence of larynx; Z92.3 Personal history of irradiation; Z93.0 Tracheostomy status; Z92.21 Personal history of antineoplastic chemotherapy; Z98.42 Cataract extraction status, left eye; Z98.41 Cataract extraction status, right eye; Z96.1 Presence of intraocular lens; Z88.8 Allergy status to other drugs, medicaments and biological substances; Z99.89 Dependence on other enabling machines and devices; R33.9 Retention of urine, unspecified
CPT/HCPCS: 36415; 36600; 51798; 70450; 71045; 71046; 71250; 80048; 80053; 80061; 82805; 83735; 83880; 84484; 85025; 85027; 85610; 85652; 85730; 86001; 86038; 86431; 86606; 86609; 93005; 93306; 94640; 94760; 96374; 99285

== ENCOUNTER 2019-09-06 11:55 | Emergency (ER) | payer OTHER, MEDICARE ==
--- NOTE | 2019-09-06 13:51 | ED ---
CPR HPI - General Chief Complaint: Cardiac Arrest/CPR Stated Complaint: cardiac arrest Time Seen by Provider: 09/06/19 11:55 Source: family, EMS, RN notes reviewed, old records reviewed Mode of arrival: EMS Limitations: altered mental status, physical limitation - History of Present Illness Initial Comments: This is a 69-year-old male with a history of multiple medical problems including a recent admission for CHF also includes COPD exacerbation acute renal failure hypertension and hypothyroidism and type 2 diabetes hyperlipidemia history of tracheostomy who apparently started not feeling well last night to come the hospital for evaluation this morning he was found to be short of breath the request transport to the hospital but he collapsed at home family found him at neck and pulseless CPR was begun. He is also markedly diaphoretic apparently. 911 system was activated. Fire rescue responded and continue CPR family members ACLS protocol was started after EMS arrived. Patient continue with EMS was transported to this facility. And route about 30 minutes after the initial encounter he did have ROSC for approximately 5 minutes. Patient was transported here and ACLS was in progress including aeration by a #6.5 tube was placed through the ostomy site. Patient also had a Adams device attached for compressions. MD Complaint: collapsed during rest - Related Data Home Medications Medication Instructions Recorded Confirmed Aspirin [Adult Low Dose Aspirin EC] 81 mg PO DAILY 10/28/16 07/08/19 Cholecalciferol [Vitamin D3 (25 2,000 unit PO DAILY 10/28/16 07/08/19 Mcg = 1000 Iu)] Pantoprazole Sodium [Protonix] 40 mg PO BID 10/28/16 07/08/19 Acetaminophen [Tylenol Extra 1,000 mg PO TID PRN 12/27/18 07/08/19 Strength] Albuterol Inhaler [Ventolin Hfa 2 puff INHALATION RT-QID PRN 12/27/18 07/08/19 Inhaler] Albuterol Nebulized [Ventolin 1.25 mg INHALATION RT-Q4H PRN 12/27/18 07/08/19 Nebulized] Ascorbic Acid [Vitamin C] 500 mg PO DAILY 12/27/18 07/08/19 Atorvastatin [Lipitor] 80 mg PO DAILY 12/27/18 07/08/19 Brimonidine Tartrate [Alphagan P 1 drops BOTH EYES DAILY 12/27/18 07/08/19 0.1% Ophth Soln] Clopidogrel [Plavix] 75 mg PO DAILY 12/27/18 07/08/19 Levothyroxine Sodium 112 mcg PO DAILY 12/27/18 07/08/19 Olodaterol HCl [Striverdi Respimat] 2 puff INHALATION RT-DAILY 12/27/18 07/08/19 Pregabalin [Lyrica] 50 mg PO BID 12/27/18 07/08/19 Ranitidine HCl 300 mg PO BID 12/27/18 07/08/19 Sennosides [Senna] 8.6 mg PO BID 12/27/18 07/08/19 Ammonium Lactate Lotion 1 applic TOPICAL DAILY 07/08/19 07/08/19 [Lac-Hydrin 12% Lotion] Betamethasone Valerate [Luxiq 1 applic TOPICAL DAILY 07/08/19 07/08/19 0.01%] Fenofibrate 160 mg PO DAILY 07/08/19 07/08/19 Hydrophilic Cream [Triad Cream] 1 applic TOPICAL BID 07/08/19 07/08/19 Insulin Aspart [NovoLOG Flexpen] 8 units SQ AC-TID 07/08/19 07/08/19 Insulin Glargine,Hum.rec.anlog 28 unit SQ HS 07/08/19 07/08/19 [Basaglar Kwikpen U-100] Ketoconazole 2% Shampoo [Nizoral] 1 applic TOPICAL DAILY 07/08/19 07/08/19 Melatonin 10 mg PO HS 07/08/19 07/08/19 Pregabalin [Lyrica] 150 mg PO HS 07/08/19 07/08/19 Terbinafine 1% Cream [LamISIL] 1 applic TOPICAL BID 07/08/19 07/08/19 rOPINIRole HCL [Requip] 0.5 - 1 mg PO HS 07/08/19 07/08/19 Previous Rx's Medication Instructions Recorded Amoxicillin/Potassium Clav 1 tab PO Q12HR 7 Days #14 tab 07/14/19 [Augmentin 875-125 Tablet] Budesonide [Pulmicort] 0.5 mg INHALATION RT-BID 30 Days 07/14/19 #1 nebu Furosemide [Lasix] 40 mg PO BID@0900,1600 30 Days #60 07/14/19 tab Ipratropium-Albuterol Nebulize 3 ml INHALATION RT-QID 30 Days 07/14/19 [Duoneb 0.5 mg-3 mg/3 ml Soln] ampul.neb Metoprolol Tartrate [Lopressor] 12.5 mg PO BID 30 Days #60 tab 07/14/19 predniSONE 10 mg PO DIRECTED #66 tab 07/14/19 Allergies Allergy/AdvReac Type Severity Reaction Status Date / Time etodolac Allergy Unknown Verified 07/08/19 22:21 omeprazole Allergy Unknown Verified 07/08/19 22:21 temazepam Allergy Unknown Verified 07/08/19 22:21 Review of Systems ROS Statement: Those systems with pertinent positive or pertinent negative responses have been documented in the HPI. ROS Other: All systems not noted in ROS Statement are negative. Past Medical History Past Medical History: Cancer, Heart Failure, COPD, GERD/Reflux, Hyperlipidemia, Myocardial Infarction (PR), Osteoarthritis (OA), Pneumonia, Sleep Apnea/CPAP/BIPAP, Thyroid Disorder Additional Past Medical History / Comment(s): hx cancer of the throat/laryngectomy/trach, pt had flu and pne vaccine but junior copywriter unable to verify dates at atime of this admit. Last Myocardial Infarction Date:: unk History of Any Multi-Drug Resistant Organisms: None Reported Additional Past Surgical History / Comment(s): Tracheostomy, PEG tube,and removal of PEG tube, removed laryngectomy. lt shoulder sx pin in place, rt hand 4th digit sx, neelam cataracts-lens implants Past Anesthesia/Blood Transfusion Reactions: No Reported Reaction Additional Past Anesthesia/Blood Transfusion Reaction / Comment(s): has never recieved any blood transfusions Past Psychological History: No Psychological Hx Reported Smoking Status: Former smoker Past Alcohol Use History: None Reported Past Drug Use History: None Reported - Past Family History Mother Family Medical History: Congestive Heart Failure (CHF) Father Family Medical History: Congestive Heart Failure (CHF) General Exam - General Exam Comments Initial Comments: This is a well-developed well-nourished unresponsive male Limitations: altered mental status, physical limitation General appearance: other (Unresponsive) Head exam: Present: atraumatic Eye exam: Present: other (Pupils fixed and dilated did about 5 mm) ENT exam: Present: normal exam Neck exam: Present: other (6.5 endotracheal tube placed to the ostomy) Respiratory exam: Present: other (Bilateral air sounds more so on the right than the left with bagging.) Cardiovascular Exam: Present: other (Asystole no spontaneous pulses) GI/Abdominal exam: Present: soft, distended Rectal exam: Present: deferred exam: Present: normal inspection Extremities exam: Present: other (No pulses no spontaneous movement) Back exam: Present: normal inspection Neurological exam: Present: other (Unresponsive) Psychiatric exam: Present: other (Unresponsive) Skin exam: Present: pallor Medical Decision Making - Medical Decision Making Initial evaluation completed the patient was found to be apneic and pulseless. Patient was pronounced at 11:58 AM. The medical equipment technician's office was notified and investigative was dispatched. Disposition Clinical Impression: Sudden cardiac Disposition: Referrals: [facility],Clinic [Primary Care Provider] - 1-2 days Preliminary Cause of : Sudden cardiac
== END 2019-09-06 14:20 | disposition expired ==
LOC: EC 11:55
DX: I46.9 Cardiac arrest, cause unspecified (principal); I11.0 Hypertensive heart disease with heart failure; I50.9 Heart failure, unspecified; J44.1 Chronic obstructive pulmonary disease with (acute) exacerbation; N17.9 Acute kidney failure, unspecified; E03.9 Hypothyroidism, unspecified; E11.9 Type 2 diabetes mellitus without complications; E78.5 Hyperlipidemia, unspecified; Z93.0 Tracheostomy status; I25.2 Old myocardial infarction; K21.9 Gastro-esophageal reflux disease without esophagitis; M19.90 Unspecified osteoarthritis, unspecified site; G47.30 Sleep apnea, unspecified; Z79.02 Long term (current) use of antithrombotics/antiplatelets; Z79.4 Long term (current) use of insulin; Z79.51 Long term (current) use of inhaled steroids; Z79.82 Long term (current) use of aspirin; Z79.899 Other long term (current) drug therapy; Z99.89 Dependence on other enabling machines and devices; Z79.890 Hormone replacement therapy; Z88.8 Allergy status to other drugs, medicaments and biological substances; Z87.891 Personal history of nicotine dependence; Z85.21 Personal history of malignant neoplasm of larynx; Z93.1 Gastrostomy status; Z82.49 Family history of ischemic heart disease and other diseases of the circulatory system
CPT/HCPCS: 99285